=== PATIENT | female | born 1955 | race Caucasian/White ===

== ENCOUNTER → 2019-11-11 | Day surgery (SDC) | payer OTHER ==
[2019-11-11 10:13] VITALS: BP 112/65
[2019-11-11 10:13] LABS: HEMATOCRIT 28.5 % (36.0-47.0); HEMOGLOBIN 9.9 g/dL (12.0-15.5); MEAN CORPUSCULAR HEMOGLOBIN 30.7 pg (27.0-33.4); MEAN CORPUSCULAR HGB CONC 34.7 g/dL (32.0-36.0); MEAN CORPUSCULAR VOLUME 89 fl (80-97); PLATELET COUNT 115 10^3/uL (150-450); RED BLOOD COUNT 3.21 10^6/uL (3.72-5.28); RED CELL DISTRIBUTION WIDTH 13.7 % (11.5-14.0); WHITE BLOOD COUNT 3.8 10^3/uL (4.0-10.5)
[2019-11-11 10:22] LABS: INTERNATIONAL RATION (INR) 0.98; PROTHROMBIN TIME 13.2 SEC (11.4-15.4)
[2019-11-11 10:23] LABS: PARTIAL THROMBOPLASTIN TIME 30.1 SEC (23.5-35.8)
[2019-11-11 10:37] LABS: BLOOD UREA NITROGEN 31 mg/dL (7-20)
== END ==
LOC: RAD 08:45
PROVIDERS: ATTEND Physician Assistant Medical
DX: R18.8 Other ascites (principal); Z53.9 Procedure and treatment not carried out, unspecified reason
CPT/HCPCS: 36415; 82565; 84520; 85027; 85610; 85730

== ENCOUNTER 2019-11-15 07:59 | Day surgery (SDC) | payer OTHER ==
[2019-11-15 08:48] LABS: ABSOLUTE LYMPHOCYTES (AUTO) 1.1 10^3/uL (0.5-4.7); ABSOLUTE MONOCYTES (AUTO) 0.1 10^3/uL (0.1-1.4); ABSOLUTE NEUT (AUTO) 1.6 10^3/uL (1.7-8.2); BASOPHILS % (AUTO) 0.2 % (0-2); EOSINOPHILS % (AUTO) 0.4 % (0-6); HEMOGLOBIN 10.2 g/dL (12.0-15.5); MEAN CORPUSCULAR HEMOGLOBIN 30.6 pg (27.0-33.4); MEAN CORPUSCULAR HGB CONC 35.2 g/dL (32.0-36.0); MEAN CORPUSCULAR VOLUME 87 fl (80-97); MONOCYTES % (AUTO) 3.6 % (3-13); PLATELET COUNT 182 10^3/uL (150-450); RED BLOOD COUNT 3.34 10^6/uL (3.72-5.28); RED CELL DISTRIBUTION WIDTH 14.1 % (11.5-14.0); SEGMENTED NEUTROPHILS % (AUTO) 55.8 % (42-78); TOTAL CELLS COUNTED % (AUTO) 100 %; WHITE BLOOD COUNT 2.8 10^3/uL (4.0-10.5)
[2019-11-15 08:52] LABS: INTERNATIONAL RATION (INR) 1.03; PROTHROMBIN TIME 13.7 SEC (11.4-15.4)
[2019-11-15 08:53] LABS: PARTIAL THROMBOPLASTIN TIME 28.2 SEC (23.5-35.8)
[2019-11-15 09:11] LABS: BLOOD UREA NITROGEN 34 mg/dL (7-20)
[2019-11-15] MEDS ORDERED: MIDAZOLAM 2 MG/2 ML INJ ONE (09:24)
[2019-11-15] MEDS ORDERED: FENTANYL CITRATE INJ/PF 100 MCG/2 ML AMPUL ONE (09:24)
[2019-11-15] MEDS ORDERED: LIDOCAINE 1% INJ-PF (10 MG/ML) 30 ML SDV ONE (09:24)
[2019-11-15 12:14] VITALS: BP 117/76
== END 2019-11-15 11:45 | disposition home or self-care (01) ==
LOC: CCL 07:59
PROVIDERS: ATTEND Radiology Diagnostic Radiology
DX: C23 Malignant neoplasm of gallbladder (principal); R18.8 Other ascites
CPT/HCPCS: 36415; 84520; 82565; 85025; 85610; 85730; 76937; J2250; J3010; J3490

== ENCOUNTER 2019-11-16 18:14 | Inpatient (IN) | payer OTHER ==
[2019-11-16] MEDS ORDERED: NORMAL SALINE 1000 ML 1,000 ML IV PRN (18:35)
--- NOTE | 2019-11-16 18:59 | EKG REPORT ---
SEVERITY:- OTHERWISE NORMAL ECG - SINUS TACHYCARDIA LOW VOLTAGE IN FRONTAL LEADS : Confirmed by: Tara Carroll MD 16-Nov-2019 18:58:15
[2019-11-16 20:24] LABS: ABSOLUTE LYMPHOCYTES (AUTO) 0.4 10^3/uL (0.5-4.7); ABSOLUTE MONOCYTES (AUTO) 0.1 10^3/uL (0.1-1.4); ABSOLUTE NEUT (AUTO) 0.5 10^3/uL (1.7-8.2); BASOPHILS % (AUTO) 0.5 % (0-2); EOSINOPHILS % (AUTO) 0.1 % (0-6); HEMATOCRIT 25.4 % (36.0-47.0); HEMOGLOBIN 8.8 g/dL (12.0-15.5); LYMPHOCYTES % (AUTO) 41.4 % (13-45); MEAN CORPUSCULAR HEMOGLOBIN 30.7 pg (27.0-33.4); MEAN CORPUSCULAR HGB CONC 34.6 g/dL (32.0-36.0); MEAN CORPUSCULAR VOLUME 89 fl (80-97); MONOCYTES % (AUTO) 6.5 % (3-13); PLATELET COUNT 165 10^3/uL (150-450); RED BLOOD COUNT 2.87 10^6/uL (3.72-5.28); RED CELL DISTRIBUTION WIDTH 13.7 % (11.5-14.0); SEGMENTED NEUTROPHILS % (AUTO) 51.5 % (42-78); TOTAL CELLS COUNTED % (AUTO) 100 %
[2019-11-16 20:33] LABS: APPEARANCE,URINE CLOUDY; BILIRUBIN,URINE NEGATIVE (NEGATIVE); COLOR,URINE AMBER; GLUCOSE, URINE NEGATIVE (NEGATIVE); KETONES,URINE 20 mg/dL (NEGATIVE); LEUKOCYTE ESTERASE,URINE SMALL (NEGATIVE); NITRITE,URINE NEGATIVE (NEGATIVE); PROTEIN,URINE 30 mg/dL (NEGATIVE); URINE SPECIFIC GRAVITY 1.023; UROBILINOGEN,URINE NEGATIVE mg/dL (<2.0)
[2019-11-16 20:39] LABS: ALBUMIN 3.5 g/dL (3.5-5.0); ALKALINE PHOSPHATASE 81 U/L (38-126); ANION GAP 10 (5-19); ASPARTATE AMINO TRANSFERASE 38 U/L (14-36); BILIRUBIN,DIRECT 0.4 mg/dL (0.0-0.4); BILIRUBIN,TOTAL 0.7 mg/dL (0.2-1.3); BLOOD UREA NITROGEN 31 mg/dL (7-20); CALCIUM 8.1 mg/dL (8.4-10.2); CARBON DIOXIDE 23 mmol/L (22-30); CHLORIDE 104 mmol/L (98-107); CREATINE KINASE 56 U/L (30-135); GLUCOSE 121 mg/dL (75-110); TOTAL PROTEIN 6.2 g/dL (6.3-8.2)
[2019-11-16 21:23] LABS: PLATELET COMMENT ADEQUATE
[2019-11-16 21:24] LABS: BURR CELLS SLIGHT; OVALOCYTES SLIGHT
[2019-11-16 21:25] LABS: SCHISTOCYTES SLIGHT
[2019-11-16 21:27] LABS: WHITE BLOOD COUNT 0.9 10^3/uL (4.0-10.5)
--- NOTE | 2019-11-16 21:31 | ER Document Report ---
ED General - General Chief Complaint: Nausea/Vomiting Stated Complaint: POSSIBLE DEHYDRATION Time Seen by Provider: 11/16/19 21:08 Mode of Arrival: Wheelchair Information source: Patient, Relative Notes: Patient is a 63-year-old female comes emergency room being sent here by [facility] they were unable to achieve a 25 IV or tap into her port. Patient is a recent diagnosis of biliary cancer. She is currently seeing and oncology for this biliary cancer. Yesterday she was here at the hospital for an ultrasound and possible paracentesis but ultrasound does show any fluid to tap into. states she is been unable to keep fluids or food down for the past several days. She just finished her second round of chemotherapy this past Monday. She had her port placement on October 28. On arrival here patient's port was able to be accessed and she is receiving a liter fluid while we have her physical examination. states that on Monday this past week she kept out approximately 30 ounces of fluids. She slept all day yesterday only keeping down about 10 ounces of fluids and then started vomiting up some green bile. While at in will be placed her on a fentanyl patch. Patient is rating her pain currently of 4 out of 5. TRAVEL OUTSIDE OF THE [place] IN LAST 30 DAYS: No - HPI Onset: Last week Onset/Duration: Worse Quality of pain: Sharp, Throbbing Severity: Severe Pain Level: 4 - . Associated symptoms: Chills, Nausea, Vomiting, Weakness. denies: Diarrhea Exacerbated by: Food Relieved by: Denies Similar symptoms previously: Yes Recently seen / treated by doctor: Yes - Related Data Allergies/Adverse Reactions: Penicillins Adverse Reaction (Intermediate, Verified 04/10/14 14:43) Hives levofloxacin [From Levaquin] Adverse Reaction (Verified 11/15/19 08:14) Past Medical History - General Information source: Patient - Social History Smoking Status: Never Smoker Cigarette use (# per day): No Chew tobacco use (# tins/day): No Smoking Education Provided: No Frequency of alcohol use: None Drug Abuse: None Lives with: Family Family History: Reviewed & Not Pertinent - Past Medical History Cardiac Medical History: Reports: Hx Hypertension Denies: Hx Coronary Artery Disease, Hx Heart Attack Pulmonary Medical History: Reports: Hx Pneumonia Denies: Hx Asthma, Hx Bronchitis, Hx COPD Neurological Medical History: Reports: Hx Seizures - MED RELATED 30+ YRS AGO. Denies: Hx Cerebrovascular Accident Musculoskeletal Medical History: Reports Hx Arthritis Past Surgical History: Reports: Hx Hysterectomy - Immunizations Hx Diphtheria, Pertussis, Tetanus Vaccination: Yes Review of Systems - Review of Systems Constitutional: See HPI, Malaise, Weakness EENT: No symptoms reported Cardiovascular: No symptoms reported Respiratory: No symptoms reported Gastrointestinal: See HPI, Abdomen distended, Abdominal pain, Nausea, Vomiting. denies: Diarrhea Genitourinary: No symptoms reported Female Genitourinary: No symptoms reported Musculoskeletal: No symptoms reported Skin: No symptoms reported Hematologic/Lymphatic: No symptoms reported Neurological/Psychological: No symptoms reported -: Yes All other systems reviewed and negative Physical Exam - Vital signs Vitals: Temp Pulse Resp BP Pulse Ox 98.8 F 111 H 20 139/72 H 99 11/16/19 18:24 11/16/19 18:24 11/16/19 18:24 11/16/19 18:24 11/16/19 18:24 Interpretation: Hypertensive, Tachycardic - Notes Notes: PHYSICAL EXAMINATION: GENERAL: Patient is a well-nourished well-developed obese 63-year-old female no apparent distress but obvious pain and discomfort. HEAD: Atraumatic, normocephalic. EYES: Pupils equal round and reactive to light, extraocular movements intact, conjunctiva are normal. ENT: Examination patient's oral mucosa shows moderately dry mucosa throughout the entire oral cavity. NECK: Normal range of motion, supple without lymphadenopathy LUNGS: Breath sounds clear to auscultation bilaterally and equal. No wheezes rales or rhonchi. HEART: Tachycardic rate and rhythm without murmurs ABDOMEN: Examination patient's abdomen shows it to be moderately distended. There is no tympany noted on percussion. Diffuse tenderness is also noted on mild palpation. Bowel sounds are present but moderately reduced. No ascites is felt on percussion or wave. Female : deferred Musculoskeletal: Normal range of motion, no pitting or edema. No cyanosis. NEUROLOGICAL: Normal speech, normal gait. Normal sensory, motor exams PSYCH: Normal mood, normal affect. SKIN: Warm, Dry, normal turgor, no rashes or lesions noted. Course - Re-evaluation Re-evalutation: 11/17/19 01:46 Dr. Lau actually called me earlier in the evening check on the labs and the patient was doing. I will stool waiting on CT report which had been running behind and informed him of the labs and he felt that if patient's pain was under control she could probably go home is only she was keeping some fluids down. It took quite a while to get the CT report back we attempted 2 times to recontact him back but the phone service was not working. So around 1:30 AM this morning was contacted and I was able to discuss the case with her in length as well. The CT report came back showing that there is a possible bowel obstruction but the point of obstruction was not seen. She felt that patient could be placed in the hospital with the hospitalist and she would help follow. At this point just IV fluids to keep her hydrated and see if the questionable obstruction cleared itself. Patient is doing a little bit better since she has been here this length of time. I have talked to the hospitalist and he is going to accept the patient into his service. I will place a consult for Dr. Najera. - Vital Signs Vital signs: Temp Pulse Resp BP Pulse Ox 98.5 F 102 H 16 124/74 99 11/17/19 04:36 11/17/19 04:36 11/17/19 04:36 11/17/19 04:36 11/17/19 04:36 - Laboratory Result Diagrams: 11/17/19 06:36 11/17/19 06:36 Laboratory results interpreted by me: 11/16/19 11/16/19 11/16/19 20:04 20:05 20:05 WBC 0.9 L* D RBC 2.87 L Hgb 8.8 L Hct 25.4 L Absolute Neuts (auto) 0.5 L Absolute Lymphs (auto) 0.4 L Sodium 136.9 L BUN 31 H Creatinine 1.51 H Est GFR ( Amer) 42 L Est GFR (MDRD) Non-Af 35 L Glucose 121 H Calcium 8.1 L AST 38 H Ammonia Total Protein 6.2 L Urine Protein 30 H Urine Ketones 20 H Ur Leukocyte Esterase SMALL H 11/16/19 22:15 WBC RBC Hgb Hct Absolute Neuts (auto) Absolute Lymphs (auto) Sodium BUN Creatinine Est GFR ( Amer) Est GFR (MDRD) Non-Af Glucose Calcium AST Ammonia < 8.7 L Total Protein Urine Protein Urine Ketones Ur Leukocyte Esterase Discharge - Discharge Clinical Impression: Bowel obstruction Qualifiers: Intestinal obstruction type: unspecified Intestinal obstruction extent: unspecified extent Qualified Code(s): K56.609 - Unspecified intestinal obstruction, unspecified as to partial versus complete obstruction Condition: Stable Disposition: ADMITTED INPATIENT Admitting Provider: Jorge (Hospitalist) Unit Admitted: Telemetry
[2019-11-16] MEDS ORDERED: MORPHINE SULFATE 10 MG/ML INJ IV ONE (21:38)
[2019-11-16] MEDS ORDERED: RINGERS SOLUTION,LACTATED 1,000 ML IV ONE (21:39)
--- NOTE | 2019-11-16 23:41 | RADIOLOGY REPORT (SQ) ---
CLINICAL INDICATION: abd pain, history of biliary cancer. Nausea. Vomiting. Diffuse abdominal pain. TECHNIQUE: Noncontrast spiral axial CT imaging was obtained of the abdomen and pelvis with multiplanar reconstructions. This exam was performed according to our departmental dose-optimization program, which includes automated exposure control, adjustment of the mA and/or kV according to patient size and/or use of iterative reconstruction techniques. COMPARISON: None available. CORRELATION: None. FINDINGS: Abdomen: The lung bases demonstrate dependent atelectasis. Old granulomatous disease. The heart is of normal size. No evidence of pleural or pericardial fluid. The liver is homogeneous. The gallbladder is not identified. Presumed surgically absent. A plastic stent is seen spanning the common bile duct.. The pancreas is of grossly normal contour on this noncontrast examination. The spleen is unremarkable. The adrenals are unremarkable. The kidneys appear grossly normal without evidence of urolithiasis or hydronephrosis. There is no evidence of free air. Moderate free intraperitoneal fluid. This is simple appearing. No bulky adenopathy. Abdominal aorta is nonaneurysmal. Pelvis: The bowel is dilated proximally. It is fluid-filled. Distal small bowel and colon are of normal caliber. Fluid in the proximal colon.. The bowel is unopacified with oral contrast. Pelvic contents are unremarkable. The appendix is not convincingly seen. Visualized bones demonstrate age-appropriate osteoarthritis. IMPRESSION: Dilated proximal small bowel. Distal small bowel of normal caliber. These findings are suspicious for obstruction although the point of obstruction is not directly seen. Moderate amount of free fluid..
[2019-11-17] MEDS ORDERED: ACETAMINOPHEN 650 MG SUPP.RECT PR PRN (01:50)
[2019-11-17] MEDS ORDERED: ACETAMINOPHEN 325 MG TABLET PO PRN (01:50)
[2019-11-17] MEDS ORDERED: NORMAL SALINE 1000 ML 1,000 ML IV PRN (01:50)
[2019-11-17] MEDS ORDERED: TEMAZEPAM 7.5 MG CAPSULE PO PRN (01:50)
[2019-11-17] MEDS ORDERED: IPRATROPIUM/ALBUTEROL 0.5-2.5 MG/3 ML AMPUL NEB PRN (01:50)
[2019-11-17] MEDS ORDERED: CEFEPIME 1 GM/D5W RTU 1 GM/50 ML RTUPB IV ONE (02:30)
--- NOTE | 2019-11-17 03:26 | PDOC H&P ---
History of Present Illness Admission Date/PCP: 11/17/19 01:57 SUSHANT GIBBS DO History of Present Illness: GIOVANNY BARROSO is a 63 year old female past medical history of hypertension, hyper lipidemia, recently diagnosed biliary carcinoma currently on chemotherapy followed by Dr. Priest, patient had a Port-A-Cath placed on October 28, developed her second chemotherapy on 11/12/2019. Patient presenting to ED complaining of nausea, vomiting, and abdominal pain. Patient initially presented to [facility] and was sent to [facility] as they were not able to access her Port-A-Cath. Since last chemotherapy patient has been feeling weak, having nonbloody bilious vomiting associated with abdominal pain and not being able to keep any food down. Abdominal pain is generalized, worse with standing and worse with eating. Last bowel movement was 2 days ago however is passing flatus, denies any fever, chest pain, shortness of breath, recent sick contact, recent travel, or being exposed to anybody with COVID 19. In ED a CT abdomen and pelvis showed dilated proximal small bowel, distal small bowel of normal caliber, findings suspicious for obstruction however no point of obstruction observed directly. Past Medical History Cardiac Medical History: Reports: Hypertension Denies: Coronary Artery Disease, Myocardial Infarction Pulmonary Medical History: Reports: Pneumonia Denies: Asthma, Bronchitis, Chronic Obstructive Pulmonary Disease (COPD) Neurological Medical History: Reports: Seizures - MED RELATED 30+ YRS AGO Musculoskeltal Medical History: Reports: Arthritis Hematology: Denies: Anemia Past Surgical History Past Surgical History: Reports: Hysterectomy Social History Lives with: Family Smoking Status: Never Smoker Family History Family History: Reviewed & Not Pertinent Parental Family History Reviewed: Yes Children Family History Reviewed: Yes Sibling(s) Family History Reviewed.: Yes Medication/Allergy Home Medications: Docusate Sodium [Colace 100 mg Capsule] 200 mg PO DAILY 11/15/19 Dronabinol [Marinol] 2.5 mg PO DAILY 11/15/19 Lorazepam [Ativan 0.5 mg Tablet] 0.5 mg PO Q4 PRN 11/15/19 Oxycodone HCl [Oxycodone HCl ER] 10 mg PO BID 11/15/19 Allergies/Adverse Reactions: Penicillins Adverse Reaction (Intermediate, Verified 04/10/14 14:43) Hives levofloxacin [From Levaquin] Adverse Reaction (Verified 11/15/19 08:14) Physical Exam Vital Signs: Temp Pulse Resp BP Pulse Ox 98.8 F 111 H 25 H 160/90 H 94 11/16/19 18:24 11/16/19 18:24 11/16/19 20:00 11/16/19 19:01 11/16/19 20:00 Intake & Output 11/15/19 11/16/19 11/17/19 06:59 06:59 06:59 Intake Total 1999 Balance 1999 Weight 71.668 kg Results Laboratory Results: 11/16/19 20:05 11/16/19 20:05 11/16/19 11/16/19 11/16/19 20:04 20:05 20:05 WBC 0.9 L* D RBC 2.87 L Hgb 8.8 L Hct 25.4 L MCV 89 MCH 30.7 MCHC 34.6 RDW 13.7 Plt Count 165 Seg Neutrophils % 51.5 Sodium 136.9 L Potassium 4.0 Chloride 104 Carbon Dioxide 23 Anion Gap 10 BUN 31 H Creatinine 1.51 H Est GFR ( Amer) 42 L Glucose 121 H Calcium 8.1 L Total Bilirubin 0.7 AST 38 H Alkaline Phosphatase 81 Ammonia Total Protein 6.2 L Albumin 3.5 Urine Color SUDHA Urine Appearance CLOUDY Urine pH 5.0 Ur Specific [place] 1.023 Urine Protein 30 H Urine Glucose (UA) NEGATIVE Urine Ketones 20 H Urine Blood NEGATIVE Urine Nitrite NEGATIVE Ur Leukocyte Esterase SMALL H Urine WBC (Auto) 15 Urine RBC (Auto) 3 11/16/19 22:15 WBC RBC Hgb Hct MCV MCH MCHC RDW Plt Count Seg Neutrophils % Sodium Potassium Chloride Carbon Dioxide Anion Gap BUN Creatinine Est GFR ( Amer) Glucose Calcium Total Bilirubin AST Alkaline Phosphatase Ammonia < 8.7 L Total Protein Albumin Urine Color Urine Appearance Urine pH Ur Specific [place] Urine Protein Urine Glucose (UA) Urine Ketones Urine Blood Urine Nitrite Ur Leukocyte Esterase Urine WBC (Auto) Urine RBC (Auto) 11/16/19 20:05 Creatine Kinase 56 Impressions: Abdomen/Pelvis CT 11/16/19 21:37 IMPRESSION: Dilated proximal small bowel. Distal small bowel of normal caliber. These findings are suspicious for obstruction although the point of obstruction is not directly seen. Moderate amount of free fluid.. Assessment and Plan - Diagnosis (1) Nausea & vomiting Qualifiers: Vomiting type: bilious vomiting Qualified Code(s): R11.14 - Bilious vomiting Is this a current diagnosis for this admission?: Yes Plan: Likely chemotherapy induced due to recent chemotherapy for underlying biliary malignancy. CT abdomen pelvis positive for dilated proximal small bowel, suspicion for obstruction however no point of obstruction directly noticed on imaging. Patient passing flatus and has normal bowel sounds on auscultation. Monitor volume status, IV antiemetics, monitor electrolytes and replace as needed. (2) Neutropenia Qualifiers: Neutropenia type: secondary to cancer chemotherapy Qualified Code(s): D70.1 - Agranulocytosis secondary to cancer chemotherapy; T45.1X5A - Adverse effect of antineoplastic and immunosuppressive drugs, initial encounter Is this a current diagnosis for this admission?: Yes Plan: Chemotherapy-induced. Last chemotherapy 11/12/2019. WBC 0.9 down from 2.8 on 11/15/2019. ANC 500 down from 1600 on 11/15/2019. Afebrile, no sign of acute infection. Neutropenic precaution, empiric broad-spectrum IV antibiotics, blood culture. Otology oncology consulted. (3) Biliary tract cancer Is this a current diagnosis for this admission?: Yes Plan: Recently diagnosed. Currently undergoing chemotherapy. Followed by Dr. Priest oncologist. Oncology consulted. Outpatient oncology follow-up. (4) Hypertension Is this a current diagnosis for this admission?: Yes Plan: Resume home meds. PRN IV hydralazine and metoprolol. Adjust meds as needed. (5) Acute kidney injury superimposed on CKD Is this a current diagnosis for this admission?: Yes Plan: Prerenal, likely due to low p.o. intake and vomiting. Cautious volume resuscitation guided by volume status, monitor electrolytes and replace as needed. If no improvement consult nephrology. CT abdomen pelvis negative for any acute kidney or urinary system abnormalities. (6) Abdominal pain Qualifiers: Abdominal location: generalized Qualified Code(s): R10.84 - Generalized a bdominal pain Is this a current diagnosis for this admission?: Yes Plan: CT abdomen pelvis positive for dilated proximal small bowel, suspicion for obstruction however no point of obstruction directly noticed on imaging. Last bowel movement 2 days ago. Patient passing flatus. Normal bowel sounds on auscultation. No sign of acute abdomen. Monitor for signs of obstruction. Continue supportive measures. - Time Time Spent with patient: 25-34 minutes Medications reviewed and adjusted accordingly: Yes Anticipated Discharge Disposition: Home with Home Health Anticipated Discharge Timeframe: within 72 hours
[2019-11-17] MEDS ORDERED: HYDRALAZINE HCL INJ/PF 20 MG/1 ML SDV IV PRN (03:30)
[2019-11-17] MEDS ORDERED: METOPROLOL TARTRATE PF/INJ 5 MG/5 ML SDV IV PRN (03:30)
[2019-11-17] MEDS ORDERED: LORAZEPAM INJ 2 MG/1 ML VIAL IV PRN (03:31)
[2019-11-17] MEDS: DEXTROSE 5%-NORMAL SALINE 1,000 ML IV PRN ×2 (03:52→14:15)
[2019-11-17] MEDS: MORPHINE SULFATE 10 MG/ML INJ IV PRN ×4 (03:52→21:40)
[2019-11-17] MEDS: HEPARIN SOD (PORCINE) 5,000 UNIT/ML 1 ML VIAL SUBCUT SCH ×3 (05:06→21:41)
[2019-11-17 08:32] LABS: HEMATOCRIT 23.8 % (36.0-47.0); HEMOGLOBIN 8.6 g/dL (12.0-15.5); MEAN CORPUSCULAR HEMOGLOBIN 31.1 pg (27.0-33.4); MEAN CORPUSCULAR HGB CONC 36.2 g/dL (32.0-36.0); MEAN CORPUSCULAR VOLUME 86 fl (80-97); PLATELET COUNT 150 10^3/uL (150-450); RED BLOOD COUNT 2.77 10^6/uL (3.72-5.28); RED CELL DISTRIBUTION WIDTH 14.1 % (11.5-14.0)
[2019-11-17 08:33] LABS: WHITE BLOOD COUNT 2.2 10^3/uL (4.0-10.5)
[2019-11-17 08:37] LABS: ANION GAP 8 (5-19); BLOOD UREA NITROGEN 25 mg/dL (7-20); CALCIUM 7.9 mg/dL (8.4-10.2); CARBON DIOXIDE 23 mmol/L (22-30); CHLORIDE 104 mmol/L (98-107); GLUCOSE 122 mg/dL (75-110); POTASSIUM 3.2 mmol/L (3.6-5.0)
[2019-11-17] MEDS: PANTOPRAZOLE SODIUM 40 MG VIAL IV SCH ×2 (09:45→21:44)
[2019-11-17] MEDS: PROMETHAZINE HCL INJ 25 MG/1 ML VIAL IV PRN ×2 (09:46→16:30)
[2019-11-17] MEDS: POTASSI CL 20 MEQ/50 ML RIDER 20 MEQ/50 ML RTUPB IV SCH ×2 (09:47→11:36)
--- NOTE | 2019-11-17 18:43 | PDOC PROGRESS REPORT ---
Subjective Progress Note for:: 11/17/19 Subjective:: Patient was seen on morning rounds. She was found resting in bed, comfortably, on room air. She reports continued nausea and vomiting, though improved with anti-emetics. Mild, diffuse, abd discomfort. Otherwise, she denies fever, chills, chest pain, palpitations, dyspnea, orthopnea, and cough. She has no questions or concerns at this time. No concerns per nursing. Reason For Visit: NAUSEA,VOMITING,P.O INTOLERANCE,ABDOMINAL PAIN Physical Exam Vital Signs: Temp Pulse Resp BP Pulse Ox 98.2 F 104 H 16 119/74 96 11/17/19 17:10 11/17/19 17:10 11/17/19 17:10 11/17/19 17:10 11/17/19 17:10 Intake & Output 11/16/19 11/17/19 11/18/19 06:59 06:59 06:59 Intake Total 2050 1045 Output Total 120 Balance 1930 1045 Weight 74.2 kg General appearance: PRESENT: no acute distress, cooperative, well-developed, well-nourished Head exam: PRESENT: atraumatic, normocephalic Eye exam: PRESENT: conjunctiva pink, EOMI, PERRLA. ABSENT: scleral icterus Mouth exam: PRESENT: moist, tongue midline Respiratory exam: PRESENT: clear to auscultation shelly, symmetrical, unlabored. ABSENT: rales, rhonchi, wheezes Cardiovascular exam: PRESENT: RRR, +S1, +S2. ABSENT: diastolic murmur, rubs, systolic murmur Vascular exam: PRESENT: normal capillary refill GI/Abdominal exam: PRESENT: normal bowel sounds, soft, tenderness - generalized/vague. ABSENT: distended, guarding, mass, organolmegaly, rebound Rectal exam: PRESENT: deferred Extremities exam: PRESENT: full ROM. ABSENT: calf tenderness, clubbing, pedal edema Neurological exam: PRESENT: alert, awake, oriented to person, oriented to place, oriented to time, oriented to situation, CN II-XII grossly intact, other - fatigued. ABSENT: motor sensory deficit Psychiatric exam: PRESENT: appropriate affect, normal mood. ABSENT: homicidal ideation, suicidal ideation Skin exam: PRESENT: dry, intact, warm. ABSENT: cyanosis, rash Results Laboratory Results: 11/17/19 06:36 11/17/19 06:36 11/16/19 11/16/19 11/16/19 20:04 20:05 20:05 WBC 0.9 L* D RBC 2.87 L Hgb 8.8 L Hct 25.4 L MCV 89 MCH 30.7 MCHC 34.6 RDW 13.7 Plt Count 165 Seg Neutrophils % 51.5 Sodium 136.9 L Potassium 4.0 Chloride 104 Carbon Dioxide 23 Anion Gap 10 BUN 31 H Creatinine 1.51 H Est GFR ( Amer) 42 L Glucose 121 H Calcium 8.1 L Total Bilirubin 0.7 AST 38 H Alkaline Phosphatase 81 Ammonia Total Protein 6.2 L Albumin 3.5 Urine Color SUDHA Urine Appearance CLOUDY Urine pH 5.0 Ur Specific [place] 1.023 Urine Protein 30 H Urine Glucose (UA) NEGATIVE Urine Ketones 20 H Urine Blood NEGATIVE Urine Nitrite NEGATIVE Ur Leukocyte Esterase SMALL H Urine WBC (Auto) 15 Urine RBC (Auto) 3 11/16/19 11/17/19 11/17/19 22:15 06:36 06:36 WBC 2.2 L D RBC 2.77 L Hgb 8.6 L Hct 23.8 L MCV 86 MCH 31.1 MCHC 36.2 H RDW 14.1 H Plt Count 150 Seg Neutrophils % Sodium 135.0 L Potassium 3.2 L Chloride 104 Carbon Dioxide 23 Anion Gap 8 BUN 25 H Creatinine 1.21 Est GFR ( Amer) 54 L Glucose 122 H Calcium 7.9 L Total Bilirubin AST Alkaline Phosphatase Ammonia < 8.7 L Total Protein Albumin Urine Color Urine Appearance Urine pH Ur Specific [place] Urine Protein Urine Glucose (UA) Urine Ketones Urine Blood Urine Nitrite Ur Leukocyte Esterase Urine WBC (Auto) Urine RBC (Auto) 11/16/19 20:05 Creatine Kinase 56 Impressions: Abdomen/Pelvis CT 11/16/19 21:37 IMPRESSION: Dilated proximal small bowel. Distal small bowel of normal caliber. These findings are suspicious for obstruction although the point of obstruction is not directly seen. Moderate amount of free fluid.. Assessment and Plan - Diagnosis (1) Abdominal pain Qualifiers: Abdominal location: generalized Qualified Code(s): R10.84 - Generalized abdominal pain Is this a current diagnosis for this admission?: Yes Plan: CT abdomen pelvis positive for dilated proximal small bowel, suspicion for obstruction however no point of obstruction directly noticed on imaging. Last bowel movement 2 days ago. Patient passing flatus. Normal bowel sounds on auscultation. No sign of acute abdomen. Monitor for signs of obstruction. Continue supportive measures. (2) Acute kidney injury superimposed on CKD Is this a current diagnosis for this admission?: Yes Plan: Improved; Cr 1.51-> 1.21 Prerenal, likely due to low p.o. intake and vomiting. CT abdomen pelvis negative for any acute kidney or urinary system abnormalities. Cautious volume resuscitation guided by volume status, monitor electrolytes and replace as needed. If no improvement consult nephrology. (3) Biliary tract cancer Is this a current diagnosis for this admission?: Yes Plan: Recently diagnosed. Currently undergoing chemotherapy. Followed by Dr. Priest oncologist. Oncology consulted. Outpatient oncology follow-up. (4) Hypertension Is this a current diagnosis for this admission?: Yes Plan: Resume home meds. PRN IV hydralazine and metoprolol. Adjust meds as needed. (5) Nausea & vomiting Qualifiers: Vomiting type: bilious vomiting Qualified Code(s): R11.14 - Bilious vomiting Is this a current diagnosis for this admission?: Yes Plan: Likely chemotherapy induced due to recent chemotherapy for underlying biliary malignancy. CT abdomen pelvis positive for dilated proximal small bowel, suspicion for obstruction however no point of obstruction directly noticed on imaging. Patient passing flatus and has normal bowel sounds on auscultation. Monitor volume status, IV antiemetics, monitor electrolytes and replace as needed. Cautiously advance to clear liquids. (6) Neutropenia Qualifiers: Neutropenia type: secondary to cancer chemotherapy Qualified Code(s): D70.1 - Agranulocytosis secondary to cancer chemotherapy; T45.1X5A - Adverse effect of antineoplastic and immunosuppressive drugs, initial encounter Is this a current diagnosis for this admission?: Yes Plan: Chemotherapy-induced. Last chemotherapy 11/12/2019. WBC 0.9 down from 2.8 on 11/15/2019. ANC 500 down from 1600 on 11/15/2019. Afebrile, no sign of acute infection. Neutropenic precaution, empiric broad-spectrum IV antibiotics, blood culture. Otology oncology consulted. - Time Time Spent with patient: 15-24 minutes Medications reviewed and adjusted accordingly: Yes Anticipated Discharge Disposition: Home, Self Care Anticipated Discharge Timeframe: within 48 hours
[2019-11-17] MEDS: CEFEPIME 1 GM/D5W RTU 1 GM/50 ML RTUPB IV SCH (19:25)
[2019-11-17] MEDS: ONDANSETRON HCL INJ/PF 4 MG/2 ML SDV IV PRN (21:42)
[2019-11-17] MEDS: ATORVASTATIN CALCIUM 20 MG TABLET PO SCH (21:44)
[2019-11-18] MEDS: DEXTROSE 5%-NORMAL SALINE 1,000 ML IV PRN ×2 (01:21→11:30)
[2019-11-18] MEDS: CEFEPIME 1 GM/D5W RTU 1 GM/50 ML RTUPB IV SCH ×2 (06:17→21:19)
[2019-11-18] MEDS: HEPARIN SOD (PORCINE) 5,000 UNIT/ML 1 ML VIAL SUBCUT SCH ×3 (06:17→22:24)
[2019-11-18] MEDS: LEVOTHYROXINE SODIUM 0.075 MG TABLET PO SCH (06:17)
--- NOTE | 2019-11-18 07:59 | PDOC CONSULTATION ---
Consultation Consult Date: 11/18/19 Attending physician:: ROYCE GAMING Provider Consulted: SATURNINO DREW Consult reason:: Patient well-known to our oncology clinic with cholangiocarcinoma History of Present Illness Admission Date/PCP: 11/17/19 01:57 SUSHANT GIBBS DO Patient complains of: Nausea and vomiting, poor p.o. intake History of Present Illness: GIOVANNY BARROSO is a 63 year old female with recent diagnosis of stage IV cholangiocarcinoma, with malignant ascites, omental metastasis, biliary mass with stent placement, has been in and out of [facility] over the last month. Received cycle #1 of chemotherapy, and this was the week off of chemotherapy this week. Cycle #2 is to be given in about 1 week's time. Presents with severe nausea and vomiting, cannot really tolerate even ice chips without getting nauseous. Upon presentation CT here showed obstruction and this was seen on a previous CT at [facility] as well and she was treated with IV fluids and medical management and it did resolve. She actually had a bowel movement on Monday. Is passing gas currently. Pain is also been a major issue and she recently got started on fentanyl patch which I increased yesterday. Past Medical History Cardiac Medical History: Reports: Hypertension Denies: Coronary Artery Disease, Myocardial Infarction Pulmonary Medical History: Reports: Pneumonia Denies: Asthma, Bronchitis, Chronic Obstructive Pulmonary Disease (COPD) Neurological Medical History: Reports: Seizures - MED RELATED 30+ YRS AGO Malignancy Medical History: Reports: Other - Cholangiocarcinoma Musculoskeltal Medical History: Reports: Arthritis Psychiatric Medical History: Reports: Depression Hematology: Denies: Anemia Past Surgical History Past Surgical History: Reports: Hysterectomy Social History Lives with: Family Smoking Status: Never Smoker Number of Years Smokin Last Time Smoked: 1976 Frequency of Alcohol Use: None Hx Recreational Drug Use: No Drugs: None Hx Prescription Drug Abuse: No - Advance Directive Resuscitation Status: Full Code Family History Family History: Reviewed & Not Pertinent Parental Family History Reviewed: Yes Children Family History Reviewed: Yes Sibling(s) Family History Reviewed.: Yes Medication/Allergy Home Medications: Amitriptyline HCl [Elavil 75 Mg Tablet] 75 mg PO DAILY 11/17/19 Atorvastatin Calcium [Lipitor 20 mg Tablet] 20 mg PO QHS 11/17/19 Levothyroxine Sodium [Synthroid 0.075 mg Tablet] 0.075 mg PO DAILY 11/17/19 Lisinopril 20 mg PO DAILY 11/17/19 Metoprolol Succinate 100 mg PO DAILY 11/17/19 Sertraline HCl 100 mg PO DAILY 11/17/19 Allergies/Adverse Reactions: Penicillins Adverse Reaction (Intermediate, Verified 04/10/14 14:43) Hives levofloxacin [From Levaquin] Adverse Reaction (Verified 11/15/19 08:14) Review of Systems Constitutional: ABSENT: chills, fever(s), headache(s), weight gain, weight loss Eyes: ABSENT: visual disturbances Ears: ABSENT: hearing changes Cardiovascular: ABSENT: chest pain, dyspnea on exertion, edema, orthropnea, palpitations Respiratory: ABSENT: cough, hemoptysis Gastrointestinal: ABSENT: abdominal pain, constipation, diarrhea, hematemesis, hematochezia, nausea, vomiting Genitourinary: ABSENT: dysuria, hematuria Musculoskeletal: ABSENT: joint swelling Integumentary: ABSENT: rash, wounds Neurological: ABSENT: abnormal gait, abnormal speech, confusion, dizziness, focal weakness, syncope Psychiatric: ABSENT: anxiety, depression, homidical ideation, suicidal ideation Endocrine: ABSENT: cold intolerance, heat intolerance, polydipsia, polyuria Hematologic/Lymphatic: ABSENT: easy bleeding, easy bruising Physical Exam Vital Signs: Temp Pulse Resp BP Pulse Ox 98.9 F 105 H 17 118/73 94 11/18/19 00:07 11/18/19 00:07 11/18/19 00:07 11/18/19 00:07 11/18/19 00:07 Intake & Output 11/17/19 11/18/19 11/19/19 06:59 06:59 06:59 Intake Total 2050 2285 Output Total 120 150 Balance 1930 2135 Weight 74.2 kg 77.5 kg General appearance: PRESENT: no acute distress, well-developed, well-nourished Head exam: PRESENT: atraumatic, normocephalic Eye exam: PRESENT: conjunctiva pink, EOMI, PERRLA. ABSENT: scleral icterus Ear exam: PRESENT: normal external ear exam Mouth exam: PRESENT: moist, tongue midline Neck exam: ABSENT: carotid bruit, JVD, lymphadenopathy, thyromegaly Respiratory exam: PRESENT: clear to auscultation shelly. ABSENT: rales, rhonchi, wheezes Cardiovascular exam: PRESENT: RRR. ABSENT: diastolic murmur, rubs, systolic mur mur Pulses: PRESENT: normal dorsalis pedis pul Vascular exam: PRESENT: normal capillary refill GI/Abdominal exam: PRESENT: normal bowel sounds, soft. ABSENT: distended, guarding, mass, organolmegaly, rebound, tenderness Rectal exam: PRESENT: deferred Extremities exam: PRESENT: full ROM. ABSENT: calf tenderness, clubbing, pedal edema Neurological exam: PRESENT: alert, awake, oriented to person, oriented to place, oriented to time, oriented to situation, CN II-XII grossly intact. ABSENT: motor sensory deficit Psychiatric exam: PRESENT: appropriate affect, normal mood. ABSENT: homicidal ideation, suicidal ideation Skin exam: PRESENT: dry, intact, warm. ABSENT: cyanosis, rash Results Laboratory Results: 11/17/19 06:36 11/17/19 06:36 11/17/19 11/17/19 06:36 06:36 WBC 2.2 L D RBC 2.77 L Hgb 8.6 L Hct 23.8 L MCV 86 MCH 31.1 MCHC 36.2 H RDW 14.1 H Plt Count 150 Sodium 135.0 L Potassium 3.2 L Chloride 104 Carbon Dioxide 23 Anion Gap 8 BUN 25 H Creatinine 1.21 Est GFR ( Amer) 54 L Glucose 122 H Calcium 7.9 L 11/16/19 20:05 Creatine Kinase 56 Impressions: Abdomen/Pelvis CT 11/16/19 21:37 IMPRESSION: Dilated proximal small bowel. Distal small bowel of normal caliber. These findings are suspicious for obstruction although the point of obstruction is not directly seen. Moderate amount of free fluid.. Assessment & Plan - Diagnosis (1) Nausea & vomiting Qualifiers: Vomiting type: bilious vomiting Qualified Code(s): R11.14 - Bilious vomiting Is this a current diagnosis for this admission?: Yes Plan: Secondary to the cholangiocarcinoma as well as omental metastasis. Initially we thought last week that she was having resurgence of malignant ascites but when we went to place a Pleurx catheter in the abdomen so the ascites could be drained, there was no ascites to be drained. Continue with supportive care for now. (2) Abdominal pain Qualifiers: Abdominal location: generalized Qualified Code(s): R10.84 - Generalized abdominal pain Is this a current diagnosis for this admission?: Yes Plan: Related to the biliary cancer and malignant ascites as well as omental metastasis, fentanyl patch increased yesterday should be fully kicked in by today. May need to increase it further. (3) Biliary tract cancer Is this a current diagnosis for this admission?: Yes Plan: #1 of chemotherapy given, cycle #2 is to be given in 1 week but we may need to delay based upon how she is doing. (4) Neutropenia Qualifiers: Neutropenia type: secondary to cancer chemotherapy Qualified Code(s): D70.1 - Agranulocytosis secondary to cancer chemotherapy; T45.1X5A - Adverse effect of antineoplastic and immunosuppressive drugs, initial encounter Is this a current diagnosis for this admission?: Yes Plan: Chemotherapy-induced but improved on last CBC. Would do CBC and a CMP every other day. - Time Time Spent: Greater than 70 Minutes - Inpatient Certification Based on my medical assessment, after consideration of the patient's comorb idities, presenting symptoms, or acuity I expect that the services needed warrant INPATIENT care.: Yes I certify that my determination is in accordance with my understanding of Medicare's requirements for reasonable and necessary INPATIENT services [42 CFR 412.3e].: Yes Medical Necessity: Need For IV Fluids, Need for Pain Control, Risk of Complication if Not Cared For in Hospital
[2019-11-18 08:30] LABS: ABSOLUTE LYMPHOCYTES (AUTO) 0.7 10^3/uL (0.5-4.7); ABSOLUTE MONOCYTES (AUTO) 0.2 10^3/uL (0.1-1.4); ABSOLUTE NEUT (AUTO) 1.4 10^3/uL (1.7-8.2); EOSINOPHILS % (AUTO) 0.1 % (0-6); HEMATOCRIT 23.1 % (36.0-47.0); LYMPHOCYTES % (AUTO) 31.3 % (13-45); MEAN CORPUSCULAR HEMOGLOBIN 30.5 pg (27.0-33.4); MEAN CORPUSCULAR HGB CONC 34.6 g/dL (32.0-36.0); MEAN CORPUSCULAR VOLUME 88 fl (80-97); MONOCYTES % (AUTO) 9.1 % (3-13); RED BLOOD COUNT 2.62 10^6/uL (3.72-5.28); RED CELL DISTRIBUTION WIDTH 13.7 % (11.5-14.0); SEGMENTED NEUTROPHILS % (AUTO) 59.5 % (42-78); TOTAL CELLS COUNTED % (AUTO) 100 %; WHITE BLOOD COUNT 2.3 10^3/uL (4.0-10.5)
[2019-11-18 08:32] LABS: INTERNATIONAL RATION (INR) 1.14; PROTHROMBIN TIME 14.8 SEC (11.4-15.4)
[2019-11-18 08:55] LABS: ALBUMIN 2.9 g/dL (3.5-5.0); ALKALINE PHOSPHATASE 68 U/L (38-126); ANION GAP 9 (5-19); ASPARTATE AMINO TRANSFERASE 30 U/L (14-36); BILIRUBIN,DIRECT 0.3 mg/dL (0.0-0.4); BILIRUBIN,TOTAL 0.5 mg/dL (0.2-1.3); BLOOD UREA NITROGEN 21 mg/dL (7-20); CALCIUM 7.7 mg/dL (8.4-10.2); CARBON DIOXIDE 19 mmol/L (22-30); CHLORIDE 110 mmol/L (98-107); GLUCOSE 114 mg/dL (75-110); POTASSIUM 3.5 mmol/L (3.6-5.0); TOTAL PROTEIN 5.4 g/dL (6.3-8.2)
[2019-11-18 09:21] LABS: PLATELET COUNT 90 10^3/uL (150-450)
[2019-11-18] MEDS ORDERED: (PENDING PHARMACY ID) (Metoprolol Succinate [Metoprolol Succinate] 100 MG) PO SCH (10:00)
[2019-11-18] MEDS ORDERED: (PENDING PHARMACY ID) (Lisinopril [Lisinopril] 20 MG) PO SCH (10:00)
[2019-11-18] MEDS: METOPROLOL SUCCINATE 50 MG TAB.SR.24H PO SCH (10:09)
[2019-11-18] MEDS ORDERED: MORPHINE SULFATE 10 MG/ML INJ IV PRN (10:31)
[2019-11-18] MEDS ORDERED: MORPHINE SULFATE 10 MG/ML INJ ONE (10:43)
[2019-11-18] MEDS: LORAZEPAM INJ 2 MG/1 ML VIAL IV PRN (10:54)
[2019-11-18] MEDS: LISINOPRIL 10 MG TABLET PO SCH (11:41)
[2019-11-18] MEDS: PANTOPRAZOLE SODIUM 40 MG VIAL IV SCH ×2 (11:42→22:00)
[2019-11-18] MEDS: SERTRALINE HCL 50 MG TABLET PO SCH (11:42)
[2019-11-18 13:02] LABS: PATH REVIEW PATHOLOGIST REVIEWED
[2019-11-18] MEDS: AMITRIPTYLINE HCL 75 MG TABLET PO SCH (14:15)
--- NOTE | 2019-11-18 16:32 | PDOC PROGRESS REPORT ---
Subjective Progress Note for:: 11/18/19 Subjective:: Patient was seen on morning rounds with present. She was found resting in bed on room air. She reports continued nausea and vomiting, though improved with anti-emetics. Diffuse, abd discomfort, somewhat worse today. Patient requests adjustment to medications. Placed on Duragesic patch yesterday; discussed that there can be a mack between patch placement and relief of discomfort. Otherwise, she denies fever, chills, chest pain, palpitations, dyspnea, or thopnea, and cough. She has no questions or concerns at this time. No concerns per nursing. Reason For Visit: NAUSEA,VOMITING,P.O INTOLERANCE,ABDOMINAL PAIN Physical Exam Vital Signs: Temp Pulse Resp BP Pulse Ox 98.1 F 100 16 125/69 92 11/18/19 07:49 11/18/19 13:08 11/18/19 13:08 11/18/19 07:49 11/18/19 13:08 Intake & Output 11/17/19 11/18/19 11/19/19 06:59 06:59 06:59 Intake Total 2050 2435 Output Total 120 200 Balance 1930 2235 Weight 74.2 kg 77.5 kg General appearance: PRESENT: no acute distress, well-developed, well-nourished Head exam: PRESENT: atraumatic, normocephalic Eye exam: PRESENT: conjunctiva pink, EOMI, PERRLA. ABSENT: scleral icterus Mouth exam: PRESENT: moist, tongue midline Respiratory exam: PRESENT: clear to auscultation shelly, symmetrical, tachypnea, unlabored. ABSENT: rales, rhonchi, wheezes Cardiovascular exam: PRESENT: RRR. ABSENT: diastolic murmur, rubs, systolic murmur Pulses: PRESENT: normal dorsalis pedis pul Vascular exam: PRESENT: normal capillary refill GI/Abdominal exam: PRESENT: normal bowel sounds, soft, tenderness - generalized. ABSENT: distended, guarding, mass, organolmegaly, rebound Rectal exam: PRESENT: deferred Extremities exam: PRESENT: full ROM. ABSENT: calf tenderness, clubbing, pedal edema Neurological exam: PRESENT: alert, awake, oriented to person, oriented to place, oriented to time, oriented to situation, CN II-XII grossly intact. ABSENT: motor sensory deficit Psychiatric exam: PRESENT: anxious, appropriate affect, normal mood. ABSENT: homicidal ideation, suicidal ideation Skin exam: PRESENT: dry, intact, warm. ABSENT: cyanosis, rash Results Laboratory Results: 11/18/19 07:14 11/18/19 07:14 11/16/19 11/18/19 11/18/19 20:05 07:14 07:14 WBC 0.9 L* D 2.3 L RBC 2.62 L Hgb 8.0 L Hct 23.1 L MCV 88 MCH 30.5 MCHC 34.6 RDW 13.7 Plt Count 90 L Seg Neutrophils % 59.5 Sodium 137.9 Potassium 3.5 L Chloride 110 H Carbon Dioxide 19 L Anion Gap 9 BUN 21 H Creatinine 1.19 Est GFR ( Amer) 55 L Glucose 114 H Calcium 7.7 L Phosphorus 3.0 Magnesium 1.4 L Total Bilirubin 0.5 AST 30 Alkaline Phosphatase 68 Total Protein 5.4 L Albumin 2.9 L Lipase 106.1 Stool for White Cells 11/18/19 11:02 WBC RBC Hgb Hct MCV MCH MCHC RDW Plt Count Seg Neutrophils % Sodium Potassium Chloride Carbon Dioxide Anion Gap BUN Creatinine Est GFR ( Amer) Glucose Calcium Phosphorus Magnesium Total Bilirubin AST Alkaline Phosphatase Total Protein Albumin Lipase Stool for White Cells NO WBCs SEEN 11/16/19 20:05 Creatine Kinase 56 Impressions: Abdomen/Pelvis CT 11/16/19 21:37 IMPRESSION: Dilated proximal small bowel. Distal small bowel of normal caliber. These findings are suspicious for obstruction although the point of obstruction is not directly seen. Moderate amount of free fluid.. Assessment and Plan - Diagnosis (1) Abdominal pain Qualifiers: Abdominal location: generalized Qualified Code(s): R10.84 - Generalized abdominal pain Is this a current diagnosis for this admission?: Yes Plan: CT abdomen pelvis positive for dilated proximal small bowel, suspicion for obstruction however no point of obstruction directly noticed on imaging. Last bowel movement 2 days ago. Patient passing flatus. Normal bowel sounds on auscultation. No sign of acute abdomen. Monitor for signs of obstruction. Continue supportive measures. Duragesic patch per Dr. Priest. IV morphine for breakthrough pain. (2) Acute kidney injury superimposed on CKD Is this a current diagnosis for this admission?: Yes Plan: Improved; Cr 1.51-> 1.21-> 1.19 Prerenal, likely due to low p.o. intake and vomiting. CT abdomen pelvis negative for any acute kidney or urinary system abnormalities. Cautious volume resuscitation guided by volume status, monitor electrolytes and replace as needed. Avoid nephrotoxic medications. Follow-up chemistries. (3) Biliary tract cancer Is this a current diagnosis for this admission?: Yes Plan: Recently diagnosed. Currently undergoing chemotherapy. Followed by Dr. Priest oncologist. Oncology consulted. Outpatient oncology follow-up. (4) Hypertension Is this a current diagnosis for this admission?: Yes Plan: Resume home meds. PRN IV hydralazine and metoprolol. Adjust meds as needed. (5) Nausea & vomiting Qualifiers: Vomiting type: bilious vomiting Qualified Code(s): R11.14 - Bilious vomiting Is this a current diagnosis for this admission?: Yes Plan: Improved; nausea without emesis today. Minimal oral intake. Likely chemotherapy induced due to recent chemotherapy for underlying biliary malignancy. CT abdomen pelvis positive for dilated proximal small bowel, suspicion for obstruction however no point of obstruction directly noticed on imaging. Patient passing flatus and has normal bowel sounds on auscultation. Monitor volume status, IV antiemetics, monitor electrolytes and replace as needed. Cautiously advance to clear liquids. (6) Neutropenia Qualifiers: Neutropenia type: secondary to cancer chemotherapy Qualified Code(s): D70.1 - Agranulocytosis secondary to cancer chemotherapy; T45.1X5A - Adverse effect of antineoplastic and immunosuppressive drugs, initial encounter Is this a current diagnosis for this admission?: Yes Plan: Chemotherapy-induced. Last chemotherapy 11/12/2019. WBC 0.9 down from 2.8 on 11/15/2019. ANC 500 down from 1600 on 11/15/2019. Afebrile, no sign of acute infection. Neutropenic precaution, empiric broad-spectrum IV antibiotics, blood culture. Otology oncology consulted. - Time Time Spent with patient: 35 or more minutes Medications reviewed and adjusted accordingly: Yes Anticipated Discharge Disposition: Home, Self Care Anticipated Discharge Timeframe: within 72 hours
[2019-11-18] MEDS: MORPHINE SULFATE 10 MG/ML INJ IV PRN (16:49)
[2019-11-18] MEDS: ATORVASTATIN CALCIUM 20 MG TABLET PO SCH (22:26)
[2019-11-19] MEDS: DEXTROSE 5%-NORMAL SALINE 1,000 ML IV PRN ×3 (00:45→21:48)
[2019-11-19] MEDS: HEPARIN SOD (PORCINE) 5,000 UNIT/ML 1 ML VIAL SUBCUT SCH ×3 (05:24→21:50)
[2019-11-19] MEDS: CEFEPIME 1 GM/D5W RTU 1 GM/50 ML RTUPB IV SCH ×2 (05:32→17:07)
[2019-11-19] MEDS: LEVOTHYROXINE SODIUM 0.075 MG TABLET PO SCH (05:32)
--- NOTE | 2019-11-19 08:32 | PDOC PROGRESS REPORT ---
Subjective Progress Note for:: 11/19/19 Subjective:: Patient having some bowel movements, pain is better overall. She is tolerating some clear liquids so far. She is getting up to the restroom. feels like she is doing better today. Reason For Visit: NAUSEA,VOMITING,P.O INTOLERANCE,ABDOMINAL PAIN Physical Exam Vital Signs: Temp Pulse Resp BP Pulse Ox 98.4 F 95 17 127/73 H 96 11/19/19 00:00 11/19/19 00:00 11/19/19 00:00 11/19/19 00:00 11/19/19 00:00 Intake & Output 11/18/19 11/19/19 11/20/19 06:59 06:59 06:59 Intake Total 2435 2716 Output Total 200 200 Balance 2235 2516 Weight 77.5 kg 77.1 kg General appearance: PRESENT: no acute distress, well-developed, well-nourished Head exam: PRESENT: atraumatic, normocephalic Eye exam: PRESENT: conjunctiva pink, EOMI, PERRLA. ABSENT: scleral icterus Ear exam: PRESENT: normal external ear exam Mouth exam: PRESENT: moist, tongue midline Neck exam: ABSENT: carotid bruit, JVD, lymphadenopathy, thyromegaly Respiratory exam: PRESENT: clear to auscultation shelly. ABSENT: rales, rhonchi, wheezes Cardiovascular exam: PRESENT: RRR. ABSENT: diastolic murmur, rubs, systolic murmur Pulses: PRESENT: normal dorsalis pedis pul Vascular exam: PRESENT: normal capillary refill GI/Abdominal exam: PRESENT: normal bowel sounds, soft. ABSENT: distended, gua rding, mass, organolmegaly, rebound, tenderness Rectal exam: PRESENT: deferred Extremities exam: PRESENT: full ROM. ABSENT: calf tenderness, clubbing, pedal edema Neurological exam: PRESENT: alert, awake, oriented to person, oriented to place, oriented to time, oriented to situation, CN II-XII grossly intact. ABSENT: pierre r sensory deficit Psychiatric exam: PRESENT: appropriate affect, normal mood. ABSENT: homicidal ideation, suicidal ideation Skin exam: PRESENT: dry, intact, warm. ABSENT: cyanosis, rash Results Laboratory Results: 11/18/19 07:14 11/18/19 07:14 11/16/19 11/18/19 11/18/19 20:05 07:14 07:14 WBC 0.9 L* D 2.3 L RBC 2.62 L Hgb 8.0 L Hct 23.1 L MCV 88 MCH 30.5 MCHC 34.6 RDW 13.7 Plt Count 90 L Seg Neutrophils % 59.5 Sodium 137.9 Potassium 3.5 L Chloride 110 H Carbon Dioxide 19 L Anion Gap 9 BUN 21 H Creatinine 1.19 Est GFR ( Amer) 55 L Glucose 114 H Calcium 7.7 L Phosphorus 3.0 Magnesium 1.4 L Total Bilirubin 0.5 AST 30 Alkaline Phosphatase 68 Total Protein 5.4 L Albumin 2.9 L Lipase 106.1 Stool for White Cells 11/18/19 11:02 WBC RBC Hgb Hct MCV MCH MCHC RDW Plt Count Seg Neutrophils % Sodium Potassium Chloride Carbon Dioxide Anion Gap BUN Creatinine Est GFR ( Amer) Glucose Calcium Phosphorus Magnesium Total Bilirubin AST Alkaline Phosphatase Total Protein Albumin Lipase Stool for White Cells NO WBCs SEEN 11/16/19 20:05 Creatine Kinase 56 Impressions: Abdomen/Pelvis CT 11/16/19 21:37 IMPRESSION: Dilated proximal small bowel. Distal small bowel of normal caliber. These findings are suspicious for obstruction although the point of obstruction is not directly seen. Moderate amount of free fluid.. Assessment & Plan - Diagnosis (1) Nausea & vomiting Qualifiers: Vomiting type: bilious vomiting Qualified Code(s): R11.14 - Bilious vomiting Is this a current diagnosis for this admission?: Yes Plan: Improving, related to the cancer, continue with aggressive hydration, antiemetics and supportive care, I would like her to advance her diet today hopefully. If she is able to tolerate a reasonable amount of calories, she could ultimately discharged home. However over 24 hours if she is not able to tolerate good calories, we may need to consider something like TPN ultimately. (2) Abdominal pain Qualifiers: Abdominal location: generalized Qualified Code(s): R10.84 - Generalized abdominal pain Is this a current diagnosis for this admission?: Yes Plan: Secondary to the biliary cancer, seems to be improving. Continue with fentanyl patch and as needed medication, we will decide on increase tomorrow. (3) Biliary tract cancer Is this a current diagnosis for this admission?: Yes Plan: She is on her week off of chemo, hopeful reinitiation of chemotherapy upon discharge (4) Neutropenia Qualifiers: Neutropenia type: secondary to cancer chemotherapy Qualified Code(s): D70.1 - Agranulocytosis secondary to cancer chemotherapy; T45.1X5A - Adverse effect of antineoplastic and immunosuppressive drugs, initial encounter Is this a current diagnosis for this admission?: Yes Plan: Improved, continue to monitor - Time Time Spent with patient: 15-24 minutes
[2019-11-19] MEDS: LISINOPRIL 10 MG TABLET PO SCH (09:30)
[2019-11-19] MEDS: PANTOPRAZOLE SODIUM 40 MG VIAL IV SCH ×2 (09:30→21:49)
[2019-11-19] MEDS: SERTRALINE HCL 50 MG TABLET PO SCH (09:30)
[2019-11-19] MEDS: METOPROLOL SUCCINATE 50 MG TAB.SR.24H PO SCH (09:30)
[2019-11-19] MEDS: AMITRIPTYLINE HCL 75 MG TABLET PO SCH (09:55)
[2019-11-19] MEDS ORDERED: FENTANYL 25 MCG/HR PATCH.TD72 TD SCH (10:00)
[2019-11-19] MEDS: MORPHINE SULFATE 10 MG/ML INJ IV PRN (10:02)
[2019-11-19 14:34] LABS: ABSOLUTE LYMPHOCYTES (AUTO) 1.1 10^3/uL (0.5-4.7); ABSOLUTE MONOCYTES (AUTO) 0.5 10^3/uL (0.1-1.4); ABSOLUTE NEUT (AUTO) 1.9 10^3/uL (1.7-8.2); BASOPHILS % (AUTO) 0.2 % (0-2); EOSINOPHILS % (AUTO) 0.1 % (0-6); HEMATOCRIT 21.5 % (36.0-47.0); LYMPHOCYTES % (AUTO) 31.3 % (13-45); MEAN CORPUSCULAR HEMOGLOBIN 30.6 pg (27.0-33.4); MEAN CORPUSCULAR HGB CONC 35.6 g/dL (32.0-36.0); MEAN CORPUSCULAR VOLUME 86 fl (80-97); MONOCYTES % (AUTO) 13.4 % (3-13); TOTAL CELLS COUNTED % (AUTO) 100 %; WHITE BLOOD COUNT 3.5 10^3/uL (4.0-10.5)
[2019-11-19 14:56] LABS: ALBUMIN 2.7 g/dL (3.5-5.0); ALKALINE PHOSPHATASE 65 U/L (38-126); ANION GAP 7 (5-19); ASPARTATE AMINO TRANSFERASE 25 U/L (14-36); BILIRUBIN,DIRECT 0.3 mg/dL (0.0-0.4); BILIRUBIN,TOTAL 0.5 mg/dL (0.2-1.3); BLOOD UREA NITROGEN 13 mg/dL (7-20); CALCIUM 7.1 mg/dL (8.4-10.2); CARBON DIOXIDE 19 mmol/L (22-30); CHLORIDE 112 mmol/L (98-107); GLUCOSE 106 mg/dL (75-110); POTASSIUM 3.1 mmol/L (3.6-5.0); TOTAL PROTEIN 5.3 g/dL (6.3-8.2)
[2019-11-19 15:05] LABS: PLATELET COUNT 68 10^3/uL (150-450)
[2019-11-19 15:08] LABS: HEMOGLOBIN 7.6 g/dL (12.0-15.5)
--- NOTE | 2019-11-19 21:27 | PDOC PROGRESS REPORT ---
Subjective Progress Note for:: 11/19/19 Subjective:: Was seen and examined at bedside with present. He is resting comfortably denies any abdominal pain. Is able to eat some of the clear liquids today no episodes of vomiting. Appetite is still fair. No chest pain no shortness of breath Reason For Visit: NAUSEA,VOMITING,P.O INTOLERANCE,ABDOMINAL PAIN Physical Exam Vital Signs: Temp Pulse Resp BP Pulse Ox 98.1 F 80 16 130/69 H 97 11/19/19 20:23 11/19/19 20:23 11/19/19 20:23 11/19/19 20:23 11/19/19 20:23 Intake & Output 11/18/19 11/19/19 11/20/19 06:59 06:59 06:59 Intake Total 2435 2716 1390 Output Total 349 781 1458 Balance 2235 2516 390 Weight 77.5 kg 77.1 kg General appearance: PRESENT: no acute distress, cooperative Head exam: PRESENT: atraumatic, normocephalic Eye exam: PRESENT: EOMI, PERRLA Mouth exam: PRESENT: moist Neck exam: PRESENT: full ROM. ABSENT: JVD Respiratory exam: PRESENT: clear to auscultation shelly, unlabored. ABSENT: rales, wheezes Cardiovascular exam: PRESENT: RRR, +S1, +S2 Pulses: PRESENT: +2 pedal pulses bilateral Vascular exam: PRESENT: normal capillary refill GI/Abdominal exam: PRESENT: distended, normal bowel sounds, soft. ABSENT: guarding, tenderness Rectal exam: PRESENT: deferred Extremities exam: PRESENT: full ROM. ABSENT: tenderness Musculoskeletal exam: PRESENT: full ROM Neurological exam: PRESENT: alert, awake, oriented to person, oriented to place, oriented to time, oriented to situation Psychiatric exam: PRESENT: normal mood Results Laboratory Results: 11/19/19 14:15 11/19/19 14:15 11/19/19 11/19/19 14:15 14:15 WBC 3.5 L RBC 2.50 L Hgb 7.6 L Hct 21.5 L MCV 86 MCH 30.6 MCHC 35.6 RDW 14.0 Plt Count 68 L Seg Neutrophils % 55.0 Sodium 138.1 Potassium 3.1 L Chloride 112 H Carbon Dioxide 19 L Anion Gap 7 BUN 13 Creatinine 1.13 Est GFR ( Amer) 59 L Glucose 106 Calcium 7.1 L Total Bilirubin 0.5 AST 25 Alkaline Phosphatase 65 Total Protein 5.3 L Albumin 2.7 L 11/16/19 20:05 Creatine Kinase 56 Impressions: Abdomen/Pelvis CT 11/16/19 21:37 IMPRESSION: Dilated proximal small bowel. Distal small bowel of normal caliber. These findings are suspicious for obstruction although the point of obstruction is not directly seen. Moderate amount of free fluid.. Assessment and Plan - Diagnosis (1) Bowel obstruction Qualifiers: Intestinal obstruction type: unspecified Intestinal obstruction extent: unspecified extent Qualified Code(s): K56.609 - Unspecified intestinal obstruction, unspecified as to partial versus complete obstruction Is this a current diagnosis for this admission?: Yes Plan: - CT abdomen pelvis positive for dilated proximal small bowel, suspicion for obstruction however no point of obstruction directly noticed on imaging. - +ve bowel movement - opioid related vs 2/2 biliary ca - senna for bowel regimen since patient is on opioid - diet advanced to full liquid. - I have spoken to her about the possibility of TPN vs enteral feeding if her appetite is still not picking up by tomorrow (2) Abdominal pain Qualifiers: Abdominal location: generalized Qualified Code(s): R10.84 - Generalized abdominal pain Is this a current diagnosis for this admission?: Yes Plan: CT abdomen pelvis positive for dilated proximal small bowel, suspicion for obstruction however no point of obstruction directly noticed on imaging. - +ve bowel movement today - diet advanced to full liquid - Continue supportive measures. - senna for constipation - Duragesic patch per Dr. Priest. - IV morphine for breakthrough pain. (3) Acute kidney injury superimposed on CKD Is this a current diagnosis for this admission?: Yes Plan: Improved; Cr 1.51-> 1.21-> 1.19>1.13 -Prerenal, likely due to low p.o. intake and vomiting. -CT abdomen pelvis negative for any acute kidney or urinary system abnormalities. - on D5 half normal -Avoid nephrotoxic medications. -Follow-up chemistries. (4) Biliary tract cancer Is this a current diagnosis for this admission?: Yes Plan: Recently diagnosed. Currently undergoing chemotherapy. -Followed by Dr. Priest oncologist. - duragesic and morphine for pain - senna for bowel regimen - Oncology consulted. Outpatient oncology follow-up. (5) Neutropenia Qualifiers: Neutropenia type: secondary to cancer chemotherapy Qualified Code(s): D70.1 - Agranulocytosis secondary to cancer chemotherapy; T45.1X5A - Adverse effect of antineoplastic and immunosuppressive drugs, initial encounter Is this a current diagnosis for this admission?: Yes Plan: Chemotherapy-induced. Last chemotherapy 11/12/2019. -WBC 0.9 >3.5 -ANC 500>1.9 -Afebrile, no sign of acute infection. - Bcx negative x 2 days - will continue to monitor - oncology consulted. (6) Hypertension Is this a current diagnosis for this admission?: Yes Plan: Resume home meds. PRN IV hydralazine and metoprolol. Adjust meds as needed. - Time Time Spent with patient: 25-34 minutes Medications reviewed and adjusted accordingly: Yes Anticipated Discharge Disposition: Home, Self Care Anticipated Discharge Timeframe: to be determined
[2019-11-19] MEDS: ATORVASTATIN CALCIUM 20 MG TABLET PO SCH (21:51)
[2019-11-19] MEDS: SENNOSIDES/DOCUSATE 8.6-50 MG 1 EACH TABLET PO SCH (22:50)
[2019-11-20] MEDS ORDERED: ACETAMINOPHEN 325 MG TABLET PO PRN (05:00)
[2019-11-20] MEDS: HEPARIN SOD (PORCINE) 5,000 UNIT/ML 1 ML VIAL SUBCUT SCH ×3 (06:26→21:32)
[2019-11-20] MEDS: LEVOTHYROXINE SODIUM 0.075 MG TABLET PO SCH (06:31)
[2019-11-20 06:40] LABS: ABSOLUTE LYMPHOCYTES (AUTO) 0.9 10^3/uL (0.5-4.7); ABSOLUTE MONOCYTES (AUTO) 0.6 10^3/uL (0.1-1.4); ABSOLUTE NEUT (AUTO) 2.2 10^3/uL (1.7-8.2); EOSINOPHILS % (AUTO) 0.1 % (0-6); HEMATOCRIT 20.7 % (36.0-47.0); LYMPHOCYTES % (AUTO) 25.3 % (13-45); MEAN CORPUSCULAR HEMOGLOBIN 30.8 pg (27.0-33.4); MEAN CORPUSCULAR HGB CONC 35.8 g/dL (32.0-36.0); MEAN CORPUSCULAR VOLUME 86 fl (80-97); MONOCYTES % (AUTO) 15.3 % (3-13); RED CELL DISTRIBUTION WIDTH 13.9 % (11.5-14.0); SEGMENTED NEUTROPHILS % (AUTO) 59.3 % (42-78); TOTAL CELLS COUNTED % (AUTO) 100 %; WHITE BLOOD COUNT 3.7 10^3/uL (4.0-10.5)
[2019-11-20] MEDS: CEFEPIME 1 GM/D5W RTU 1 GM/50 ML RTUPB IV SCH ×2 (06:43→18:44)
[2019-11-20 06:52] LABS: ALBUMIN 2.5 g/dL (3.5-5.0); ALKALINE PHOSPHATASE 64 U/L (38-126); ANION GAP 6 (5-19); ASPARTATE AMINO TRANSFERASE 25 U/L (14-36); BILIRUBIN,DIRECT 0.3 mg/dL (0.0-0.4); BILIRUBIN,TOTAL 0.5 mg/dL (0.2-1.3); BLOOD UREA NITROGEN 12 mg/dL (7-20); CARBON DIOXIDE 17 mmol/L (22-30); CHLORIDE 115 mmol/L (98-107); GLUCOSE 109 mg/dL (75-110); TOTAL PROTEIN 4.8 g/dL (6.3-8.2)
[2019-11-20 07:04] LABS: CALCIUM 6.8 mg/dL (8.4-10.2); POTASSIUM 2.8 mmol/L (3.6-5.0)
[2019-11-20 07:33] LABS: PLATELET COUNT 65 10^3/uL (150-450)
[2019-11-20 07:35] LABS: HEMOGLOBIN 7.4 g/dL (12.0-15.5)
[2019-11-20] MEDS: ONDANSETRON HCL INJ/PF 4 MG/2 ML SDV IV PRN (08:04)
[2019-11-20] MEDS: DEXTROSE 5%-NORMAL SALINE 1,000 ML IV PRN ×2 (08:10→21:25)
[2019-11-20] MEDS ORDERED: DIPHENHYDRAMINE HCL 50 MG/ML VIAL IV PRN (08:21)
--- NOTE | 2019-11-20 08:23 | PDOC PROGRESS REPORT ---
Subjective Progress Note for:: 11/20/19 Subjective:: No acute events overnight, was tolerating some clear liquids yesterday, advance to full liquid for the evening meal, was able to tolerate some of that. Encouraged taking in some boost or Ensure. Still having pain so we will increase fentanyl patch today. Discussed that hemoglobin dropped to this low 7 range so we will plan for 1 unit of packed red blood cell. Reason For Visit: NAUSEA,VOMITING,P.O INTOLERANCE,ABDOMINAL PAIN Physical Exam Vital Signs: Temp Pulse Resp BP Pulse Ox 98.2 F 82 16 122/68 96 11/19/19 23:48 11/19/19 23:48 11/19/19 23:48 11/19/19 23:48 11/19/19 23:48 Intake & Output 11/19/19 11/20/19 11/21/19 06:59 06:59 06:59 Intake Total 2716 2440 1000 Output Total 200 1000 Balance 2516 1440 1000 Weight 77.1 kg 81 kg General appearance: PRESENT: no acute distress, well-developed, well-nourished Head exam: PRESENT: atraumatic, normocephalic Eye exam: PRESENT: conjunctiva pink, EOMI, PERRLA. ABSENT: scleral icterus Ear exam: PRESENT: normal external ear exam Mouth exam: PRESENT: moist, tongue midline Neck exam: ABSENT: carotid bruit, JVD, lymphadenopathy, thyromegaly Respiratory exam: PRESENT: clear to auscultation shelly. ABSENT: rales, rhonchi, wheezes Cardiovascular exam: PRESENT: RRR. ABSENT: diastolic murmur, rubs, systolic murmur Pulses: PRESENT: normal dorsalis pedis pul Vascular exam: PRESENT: normal capillary refill GI/Abdominal exam: PRESENT: normal bowel sounds, soft. ABSENT: distended, guarding, mass, organolmegaly, rebound, tenderness Rectal exam: PRESENT: deferred Extremities exam: PRESENT: full ROM. ABSENT: calf tenderness, clubbing, pedal edema Neurological exam: PRESENT: alert, awake, oriented to person, oriented to place, oriented to time, oriented to situation, CN II-XII grossly intact. ABSENT: motor sensory deficit Psychiatric exam: PRESENT: appropriate affect, normal mood. ABSENT: homicidal ideation, suicidal ideation Skin exam: PRESENT: dry, intact, warm. ABSENT: cyanosis, rash Results Laboratory Results: 11/20/19 05:56 11/20/19 05:56 11/19/19 11/19/19 11/20/19 14:15 14:15 05:56 WBC 3.5 L 3.7 L RBC 2.50 L 2.40 L Hgb 7.6 L 7.4 L Hct 21.5 L 20.7 L MCV 86 86 MCH 30.6 30.8 MCHC 35.6 35.8 RDW 14.0 13.9 Plt Count 68 L 65 L Seg Neutrophils % 55.0 59.3 Sodium 138.1 Potassium 3.1 L Chloride 112 H Carbon Dioxide 19 L Anion Gap 7 BUN 13 Creatinine 1.13 Est GFR ( Amer) 59 L Glucose 106 Calcium 7.1 L Total Bilirubin 0.5 AST 25 Alkaline Phosphatase 65 Total Protein 5.3 L Albumin 2.7 L 11/20/19 05:56 WBC RBC Hgb Hct MCV MCH MCHC RDW Plt Count Seg Neutrophils % Sodium 138.3 Potassium 2.8 L* Chloride 115 H Carbon Dioxide 17 L Anion Gap 6 BUN 12 Creatinine 1.00 Est GFR ( Amer) > 60 Glucose 109 Calcium 6.8 L* Total Bilirubin 0.5 AST 25 Alkaline Phosphatase 64 Total Protein 4.8 L Albumin 2.5 L 11/16/19 20:05 Creatine Kinase 56 Impressions: Abdomen/Pelvis CT 11/16/19 21:37 IMPRESSION: Dilated proximal small bowel. Distal small bowel of normal caliber. These findings are suspicious for obstruction although the point of obstruction is not directly seen. Moderate amount of free fluid.. Assessment & Plan - Diagnosis (1) Nausea & vomiting Qualifiers: Vomiting type: bilious vomiting Qualified Code(s): R11.14 - Bilious vomiting Is this a current diagnosis for this admission?: Yes Plan: Still present, related to the cancer, continue supportive care (2) Abdominal pain Qualifiers: Abdominal location: generalized Qualified Code(s): R10.84 - Generalized abdominal pain Is this a current diagnosis for this admission?: Yes Plan: Increase fentanyl patch (3) Biliary tract cancer Is this a current diagnosis for this admission?: Yes Plan: Cycle #1 of chemo given this is the week off.Hopeful continued therapy as an outpatient (4) Neutropenia Qualifiers: Neutropenia type: secondary to cancer chemotherapy Qualified Code(s): D70.1 - Agranulocytosis secondary to cancer chemotherapy; T45.1X5A - Adverse effect of antineoplastic and immunosuppressive drugs, initial encounter Is this a current diagnosis for this admission?: Yes Plan: Chemo induced, now resolved - Time Time Spent with patient: 35 or more minutes
[2019-11-20] MEDS: CALCIUM CARBONATE 600 MG TABLET PO SCH ×2 (09:25→17:12)
[2019-11-20] MEDS: LISINOPRIL 10 MG TABLET PO SCH (09:25)
[2019-11-20] MEDS: AMITRIPTYLINE HCL 75 MG TABLET PO SCH (09:25)
[2019-11-20] MEDS: METOPROLOL SUCCINATE 50 MG TAB.SR.24H PO SCH (09:26)
[2019-11-20] MEDS: PANTOPRAZOLE SODIUM 40 MG VIAL IV SCH ×2 (09:27→21:10)
[2019-11-20] MEDS: SERTRALINE HCL 50 MG TABLET PO SCH (09:27)
[2019-11-20] MEDS: POTASSI CL 20 MEQ/50 ML RIDER 20 MEQ/50 ML RTUPB IV SCH ×3 (09:28→17:18)
[2019-11-20] MEDS ORDERED: POTASSIUM CHLORIDE 10 MEQ TABLET.ER PO ONE (09:30)
[2019-11-20] MEDS: FENTANYL 50 MCG/HR PATCH.TD72 TD SCH (09:56)
[2019-11-20] MEDS: MORPHINE SULFATE 10 MG/ML INJ IV PRN ×3 (10:45→21:09)
[2019-11-20] MEDS: MAGNESIUM SULFATE/D5W 1 GM/100 ML RTUPB IV SCH ×2 (10:56→16:58)
[2019-11-20] MEDS: PROMETHAZINE HCL INJ 25 MG/1 ML VIAL IV PRN ×3 (10:57→21:09)
[2019-11-20 17:23] LABS: ABSOLUTE LYMPHOCYTES (AUTO) 1.3 10^3/uL (0.5-4.7); ABSOLUTE MONOCYTES (AUTO) 1.1 10^3/uL (0.1-1.4); ABSOLUTE NEUT (AUTO) 3.4 10^3/uL (1.7-8.2); BASOPHILS % (AUTO) 0.1 % (0-2); EOSINOPHILS % (AUTO) 0.2 % (0-6); HEMATOCRIT 29.3 % (36.0-47.0); LYMPHOCYTES % (AUTO) 22.4 % (13-45); MEAN CORPUSCULAR HEMOGLOBIN 29.9 pg (27.0-33.4); MEAN CORPUSCULAR HGB CONC 35.5 g/dL (32.0-36.0); MEAN CORPUSCULAR VOLUME 84 fl (80-97); MONOCYTES % (AUTO) 19.5 % (3-13); RED BLOOD COUNT 3.48 10^6/uL (3.72-5.28); RED CELL DISTRIBUTION WIDTH 14.6 % (11.5-14.0); SEGMENTED NEUTROPHILS % (AUTO) 57.8 % (42-78); TOTAL CELLS COUNTED % (AUTO) 100 %; WHITE BLOOD COUNT 5.8 10^3/uL (4.0-10.5)
[2019-11-20] MEDS ORDERED: MAGNESIUM SULFATE/D5W 1 GM/100 ML RTUPB IV ONE (17:30)
[2019-11-20 17:36] LABS: HEMOGLOBIN 10.4 g/dL (12.0-15.5); PLATELET COUNT 77 10^3/uL (150-450)
[2019-11-20] MEDS ORDERED: POTASSIUM CHLORIDE 20 MEQ/50 ML RTU IV ONE (18:00)
[2019-11-20] MEDS: ATORVASTATIN CALCIUM 20 MG TABLET PO SCH (21:11)
[2019-11-20] MEDS: SENNOSIDES/DOCUSATE 8.6-50 MG 1 EACH TABLET PO SCH (21:32)
[2019-11-20] MEDS ORDERED: PHARMACY COMMUNICATION ORDER MC NR (22:15)
--- NOTE | 2019-11-20 22:16 | PDOC PROGRESS REPORT ---
Subjective Progress Note for:: 11/20/19 Subjective:: Was seen and examined at bedside She is resting comfortably chronic abdominal pain controlled by current pain medications. Appetite is still fair but reports no nausea or vomiting. Had a bowel movement today. I discussed with her the need for nutrition either in the form of TPN or enteral feeding. Generally enteral feeding is always preferred over TPN explained this to her and she was agreeable for a tube feeding insertion and enteral feeding. However nurse informed me that they would like to speak to their oncologist regarding TPN. Reason For Visit: NAUSEA,VOMITING,P.O INTOLERANCE,ABDOMINAL PAIN Physical Exam Vital Signs: Temp Pulse Resp BP Pulse Ox 97.9 F 82 16 136/72 H 98 11/20/19 15:08 11/20/19 15:08 11/20/19 15:08 11/20/19 15:08 11/20/19 15:08 Intake & Output 11/19/19 11/20/19 11/21/19 06:59 06:59 06:59 Intake Total 2716 2440 3088 Output Total 200 1000 200 Balance 2516 1440 2888 Weight 77.1 kg 81 kg 81 kg General appearance: PRESENT: no acute distress, cooperative Head exam: PRESENT: atraumatic, normocephalic Eye exam: PRESENT: EOMI, PERRLA Ear exam: PRESENT: normal external ear exam Mouth exam: PRESENT: moist Neck exam: PRESENT: full ROM. ABSENT: JVD Respiratory exam: PRESENT: clear to auscultation shelly, unlabored. ABSENT: crackles, rales Cardiovascular exam: PRESENT: RRR, +S1, +S2. ABSENT: diastolic murmur, systolic murmur Pulses: PRESENT: +2 pedal pulses bilateral GI/Abdominal exam: PRESENT: distended, normal bowel sounds, soft. ABSENT: gu arding, tenderness Extremities exam: PRESENT: full ROM Musculoskeletal exam: PRESENT: full ROM Neurological exam: PRESENT: alert, awake, oriented to person, oriented to place, oriented to time, oriented to situation Psychiatric exam: PRESENT: normal mood Skin exam: PRESENT: normal color Results Laboratory Results: 11/20/19 17:05 11/20/19 05:56 11/20/19 11/20/19 11/20/19 05:56 05:56 05:56 WBC 3.7 L RBC 2.40 L Hgb 7.4 L Hct 20.7 L MCV 86 MCH 30.8 MCHC 35.8 RDW 13.9 Plt Count 65 L Seg Neutrophils % 59.3 Sodium 138.3 Potassium 2.8 L* Chloride 115 H Carbon Dioxide 17 L Anion Gap 6 BUN 12 Creatinine 1.00 Est GFR ( Amer) > 60 Glucose 109 Calcium 6.8 L* Magnesium 1.0 L* Total Bilirubin 0.5 AST 25 Alkaline Phosphatase 64 Total Protein 4.8 L Albumin 2.5 L Blood Type Antibody Screen 11/20/19 11/20/19 09:05 17:05 WBC 5.8 RBC 3.48 L Hgb 10.4 L D Hct 29.3 L MCV 84 MCH 29.9 MCHC 35.5 RDW 14.6 H Plt Count 77 L Seg Neutrophils % 57.8 Sodium Potassium Chloride Carbon Dioxide Anion Gap BUN Creatinine Est GFR ( Amer) Glucose Calcium Magnesium Total Bilirubin AST Alkaline Phosphatase Total Protein Albumin Blood Type O POSITIVE Antibody Screen NEGATIVE 11/16/19 20:05 Creatine Kinase 56 Impressions: Abdomen/Pelvis CT 11/16/19 21:37 IMPRESSION: Dilated proximal small bowel. Distal small bowel of normal caliber. These findings are suspicious for obstruction although the point of obstruction is not directly seen. Moderate amount of free fluid.. Assessment and Plan - Diagnosis (1) Bowel obstruction Qualifiers: Intestinal obstruction type: unspecified Intestinal obstruction extent: unspecified extent Qualified Code(s): K56.609 - Unspecified intestinal obstruction, unspecified as to partial versus complete obstruction Is this a current diagnosis for this admission?: Yes Plan: - CT abdomen pelvis positive for dilated proximal small bowel, suspicion for obstruction however no point of obstruction directly noticed on imaging. -Patient is having regular bowel movement - opioid related vs 2/2 biliary ca - senna for bowel regimen since patient is on opioid - diet advanced to full liquid. - I have spoken to her about the possibility of TPN vs enteral feeding. She agreed to tube feeding. -NG tube placement ordered. dietary consult for enteral feeding recommendation (2) Abdominal pain Qualifiers: Abdominal location: generalized Qualified Code(s): R10.84 - Generalized abdominal pain Is this a current diagnosis for this admission?: Yes Plan: CT abdomen pelvis positive for dilated proximal small bowel, suspicion for obstruction however no point of obstruction directly noticed on imaging. - +ve bowel movement today - diet advanced to full liquid - Continue supportive measures. - senna for constipation - Duragesic patch per Dr. Priest. - IV morphine for breakthrough pain. (3) Acute kidney injury superimposed on CKD Is this a current diagnosis for this admission?: Yes Plan: Improved; Cr 1.51-> 1.21-> 1.19>1.13 -Prerenal, likely due to low p.o. intake and vomiting. -CT abdomen pelvis negative for any acute kidney or urinary system abnormalities. - on D5 half normal -Avoid nephrotoxic medications. -Follow-up chemistries. (4) Biliary tract cancer Is this a current diagnosis for this admission?: Yes Plan: Recently diagnosed. Currently undergoing chemotherapy. -Followed by Dr. Priest oncologist. - duragesic and morphine for pain - senna for bowel regimen - Oncology consulted. Outpatient oncology follow-up. (5) Neutropenia Qualifiers: Neutropenia type: secondary to cancer chemotherapy Qualified Code(s): D70.1 - Agranulocytosis secondary to cancer chemotherapy; T45.1X5A - Adverse effect of antineoplastic and immunosuppressive drugs, initial encounter Is this a current diagnosis for this admission?: Yes (6) Hypertension Is this a current diagnosis for this admission?: Yes (7) Anemia Qualifiers: Anemia type: other cause Other causes of anemia: antineoplastic chemothera py Qualified Code(s): D64.81 - Anemia due to antineoplastic chemotherapy; T45.1X5A - Adverse effect of antineoplastic and immunosuppressive drugs, initial encounter Is this a current diagnosis for this admission?: Yes Plan: -Globin continues to downtrend. From 8.8 now at 7.4 -No acute bleeding. This is likely secondary to chemotherapy -Oncology following ordered 1 unit of packed RBC -Repeat hemoglobin 10.4 -We will continue to monitor (8) Malnutrition Qualifiers: Malnutrition type: protein-calorie malnutrition Protein-calorie malnutrition severity: moderate Qualified Code(s): E44.0 - Moderate protein- calorie malnutrition Is this a current diagnosis for this admission?: Yes Plan: -Patient has a history of biliary tract cancer recently received chemo -Patient has poor appetite -Start enteral feeding tomorrow -Dietary on consult - Time Time Spent with patient: 25-34 minutes Anticipated Discharge Disposition: Home with Home Health Anticipated Discharge Timeframe: to be determined
[2019-11-21] MEDS ORDERED: TEMAZEPAM 7.5 MG CAPSULE NG PRN (01:00)
[2019-11-21] MEDS ORDERED: ACETAMINOPHEN 325 MG TABLET NG PRN (01:00)
[2019-11-21] MEDS: HEPARIN SOD (PORCINE) 5,000 UNIT/ML 1 ML VIAL SUBCUT SCH ×3 (05:33→21:25)
[2019-11-21] MEDS: CEFEPIME 1 GM/D5W RTU 1 GM/50 ML RTUPB IV SCH ×2 (05:40→17:45)
[2019-11-21] MEDS: LORAZEPAM INJ 2 MG/1 ML VIAL IV PRN (06:13)
[2019-11-21] MEDS: DEXTROSE 5%-NORMAL SALINE 1,000 ML IV PRN ×2 (06:23→17:45)
[2019-11-21 06:41] LABS: ABSOLUTE LYMPHOCYTES (AUTO) 1.1 10^3/uL (0.5-4.7); ABSOLUTE MONOCYTES (AUTO) 0.8 10^3/uL (0.1-1.4); ABSOLUTE NEUT (AUTO) 2.1 10^3/uL (1.7-8.2); BASOPHILS % (AUTO) 0.1 % (0-2); EOSINOPHILS % (AUTO) 0.1 % (0-6); HEMATOCRIT 27.3 % (36.0-47.0); HEMOGLOBIN 9.6 g/dL (12.0-15.5); LYMPHOCYTES % (AUTO) 27.9 % (13-45); MEAN CORPUSCULAR HEMOGLOBIN 29.8 pg (27.0-33.4); MEAN CORPUSCULAR HGB CONC 35.3 g/dL (32.0-36.0); MEAN CORPUSCULAR VOLUME 84 fl (80-97); MONOCYTES % (AUTO) 19.6 % (3-13); RED BLOOD COUNT 3.24 10^6/uL (3.72-5.28); RED CELL DISTRIBUTION WIDTH 14.8 % (11.5-14.0); SEGMENTED NEUTROPHILS % (AUTO) 52.3 % (42-78); TOTAL CELLS COUNTED % (AUTO) 100 %
[2019-11-21 06:56] LABS: ALBUMIN 2.7 g/dL (3.5-5.0); ALKALINE PHOSPHATASE 79 U/L (38-126); ANION GAP 9 (5-19); ASPARTATE AMINO TRANSFERASE 27 U/L (14-36); BILIRUBIN,DIRECT 0.3 mg/dL (0.0-0.4); BILIRUBIN,TOTAL 0.8 mg/dL (0.2-1.3); BLOOD UREA NITROGEN 11 mg/dL (7-20); CARBON DIOXIDE 18 mmol/L (22-30); CHLORIDE 112 mmol/L (98-107); GLUCOSE 103 mg/dL (75-110); POTASSIUM 3.6 mmol/L (3.6-5.0); TOTAL PROTEIN 5.2 g/dL (6.3-8.2)
[2019-11-21 07:12] LABS: CALCIUM 6.9 mg/dL (8.4-10.2)
[2019-11-21 07:57] LABS: PLATELET COUNT 76 10^3/uL (150-450)
--- NOTE | 2019-11-21 08:18 | PDOC PROGRESS REPORT ---
Subjective Progress Note for:: 11/21/19 Subjective:: NG tube placed last night, awaiting x-ray to look on tube placement. Thereafter awaiting dietary recommendations on initiation of tube feeds. Reason For Visit: NAUSEA,VOMITING,P.O INTOLERANCE,ABDOMINAL PAIN Physical Exam Vital Signs: Temp Pulse Resp BP Pulse Ox 98.1 F 83 15 127/67 H 93 11/21/19 00:00 11/21/19 00:00 11/21/19 00:00 11/21/19 00:00 11/21/19 00:00 Intake & Output 11/20/19 11/21/19 11/22/19 06:59 06:59 06:59 Intake Total 2440 4035 Output Total 1000 200 Balance 1440 3835 Weight 81 kg 80.6 kg General appearance: PRESENT: no acute distress, well-developed, well-nourished Head exam: PRESENT: atraumatic, normocephalic Eye exam: PRESENT: conjunctiva pink, EOMI, PERRLA. ABSENT: scleral icterus Ear exam: PRESENT: normal external ear exam Mouth exam: PRESENT: moist, tongue midline Neck exam: ABSENT: carotid bruit, JVD, lymphadenopathy, thyromegaly Respiratory exam: PRESENT: clear to auscultation shelly. ABSENT: rales, rhonchi, wheezes Cardiovascular exam: PRESENT: RRR. ABSENT: diastolic murmur, rubs, systolic murmur Pulses: PRESENT: normal dorsalis pedis pul Vascular exam: PRESENT: normal capillary refill GI/Abdominal exam: PRESENT: normal bowel sounds, soft. ABSENT: distended, guarding, mass, organolmegaly, rebound, tenderness Rectal exam: PRESENT: deferred Extremities exam: PRESENT: full ROM. ABSENT: calf tenderness, clubbing, pedal edema Neurological exam: PRESENT: alert, awake, oriented to person, oriented to place, oriented to time, oriented to situation, CN II-XII grossly intact. ABSENT: motor sensory deficit Psychiatric exam: PRESENT: appropriate affect, normal mood. ABSENT: homicidal ideation, suicidal ideation Skin exam: PRESENT: dry, intact, warm. ABSENT: cyanosis, rash Results Laboratory Results: 11/21/19 05:58 11/21/19 05:58 11/20/19 11/20/19 11/20/19 05:56 09:05 17:05 WBC 5.8 RBC 3.48 L Hgb 10.4 L D Hct 29.3 L MCV 84 MCH 29.9 MCHC 35.5 RDW 14.6 H Plt Count 77 L Seg Neutrophils % 57.8 Sodium Potassium Chloride Carbon Dioxide Anion Gap BUN Creatinine Est GFR ( Amer) Glucose Calcium Magnesium 1.0 L* Total Bilirubin AST Alkaline Phosphatase Total Protein Albumin Blood Type O POSITIVE Antibody Screen NEGATIVE 11/21/19 11/21/19 05:58 05:58 WBC 4.0 RBC 3.24 L Hgb 9.6 L Hct 27.3 L MCV 84 MCH 29.8 MCHC 35.3 RDW 14.8 H Plt Count 76 L Seg Neutrophils % 52.3 Sodium 139.3 Potassium 3.6 Chloride 112 H Carbon Dioxide 18 L Anion Gap 9 BUN 11 Creatinine 1.02 Est GFR ( Amer) > 60 Glucose 103 Calcium 6.9 L* Magnesium Total Bilirubin 0.8 AST 27 Alkaline Phosphatase 79 Total Protein 5.2 L Albumin 2.7 L Blood Type Antibody Screen 11/16/19 20:05 Creatine Kinase 56 Impressions: Abdomen/Pelvis CT 11/16/19 21:37 IMPRESSION: Dilated proximal small bowel. Distal small bowel of normal caliber. These findings are suspicious for obstruction although the point of obstruction is not directly seen. Moderate amount of free fluid.. Assessment & Plan - Diagnosis (1) Nausea & vomiting Qualifiers: Vomiting type: bilious vomiting Qualified Code(s): R11.14 - Bilious vomiting Is this a current diagnosis for this admission?: Yes Plan: poor p.o. intake yesterday so agree with tube feeds initiation, to see if it will work (2) Abdominal pain Qualifiers: Abdominal location: generalized Qualified Code(s): R10.84 - Generalized abdominal pain Is this a current diagnosis for this admission?: Yes Plan: Increased fentanyl, hopefully that will work (3) Biliary tract cancer Is this a current diagnosis for this admission?: Yes Plan: Currently on week off of chemotherapy but if patient is still here next week we may consider initiation of cycle #2 inpatient (4) Neutropenia Qualifiers: Neutropenia type: secondary to cancer chemotherapy Qualified Code(s): D70.1 - Agranulocytosis secondary to cancer chemotherapy; T45.1X5A - Adverse effect of antineoplastic and immunosuppressive drugs, initial encounter Is this a current diagnosis for this admission?: Yes Plan: Resolved continue to monitor (5) Malnutrition Qualifiers: Malnutrition type: protein-calorie malnutrition Protein-calorie malnutrition severity: severe Qualified Code(s): E43 - Unspecified severe protein-calorie malnutrition Is this a current diagnosis for this admission?: Yes Plan: Secondary to cancer and chemotherapy, initiating tube feeds - Time Time Spent with patient: 35 or more minutes
[2019-11-21] MEDS: PROMETHAZINE HCL INJ 25 MG/1 ML VIAL IV PRN ×3 (09:12→20:20)
--- NOTE | 2019-11-21 09:58 | RADIOLOGY REPORT (SQ) ---
EXAM DESCRIPTION: KUB/ABDOMEN (SINGLE VIEW) IMAGES COMPLETED DATE/TIME: 11/21/2019 9:13 am REASON FOR STUDY: Check Placement of NG Tube COMPARISON: None. NUMBER OF VIEWS: One view. TECHNIQUE: Supine radiographic image of the abdomen acquired. LIMITATIONS: None. FINDINGS: Nasogastric tube tip overlying the gastric fundus. No dilated loops. IMPRESSION: Nasogastric tube in the stomach. TECHNICAL DOCUMENTATION: JOB ID: [id number] 2010 [employer]- All Rights Reserved Reading location - IP/workstation name: [email or web address]
[2019-11-21] MEDS: AMITRIPTYLINE HCL 75 MG TABLET NG SCH (11:22)
[2019-11-21] MEDS: SERTRALINE HCL 50 MG TABLET NG SCH (11:22)
[2019-11-21] MEDS: LEVOTHYROXINE SODIUM 0.075 MG TABLET NG SCH (11:22)
[2019-11-21] MEDS: LISINOPRIL 10 MG TABLET NG SCH (11:22)
[2019-11-21] MEDS: CALCIUM CARBONATE 600 MG TABLET NG SCH ×2 (11:22→17:45)
[2019-11-21] MEDS: METOPROLOL SUCCINATE 50 MG TAB.SR.24H PO SCH (11:22)
[2019-11-21] MEDS: PANTOPRAZOLE SODIUM 40 MG VIAL IV SCH ×2 (11:23→21:23)
--- NOTE | 2019-11-21 19:18 | PDOC PROGRESS REPORT ---
Subjective Progress Note for:: 11/21/19 Subjective:: Was seen and examined at bedside She is resting comfortably chronic abdominal pain controlled by current pain medications. Appetite is still fair but reports no nausea or vomiting. Had a bowel movement today. I discussed with her the need for nutrition either in the form of TPN or enteral feeding. Generally enteral feeding is always preferred over TPN explained this to her and she was agreeable for a tube feeding insertion and enteral feeding. D5 of hospital stay 11/21/19. She was seen and examined at bedside. Enteral tube feeding started today, so far tolerating it well. Abdominal pain adequately treated by current pain medications. Afebrile, appetite is still low. Reason For Visit: NAUSEA,VOMITING,P.O INTOLERANCE,ABDOMINAL PAIN Physical Exam Vital Signs: Temp Pulse Resp BP Pulse Ox 98.4 F 87 18 132/74 H 97 11/21/19 14:43 11/21/19 14:43 11/21/19 14:43 11/21/19 14:43 11/21/19 14:43 Intake & Output 11/20/19 11/21/19 11/22/19 06:59 06:59 06:59 Intake Total 2440 4085 1860 Output Total 1000 200 Balance 1440 3885 1860 Weight 81 kg 80.6 kg 80.6 kg General appearance: PRESENT: no acute distress, cooperative Head exam: PRESENT: atraumatic, normocephalic Eye exam: PRESENT: EOMI, PERRLA Mouth exam: PRESENT: moist Neck exam: PRESENT: full ROM. ABSENT: meningismus Respiratory exam: PRESENT: clear to auscultation shelly, symmetrical, unlabored. ABSENT: crackles Cardiovascular exam: PRESENT: RRR, +S1, +S2 Pulses: PRESENT: +2 pedal pulses bilateral Vascular exam: PRESENT: normal capillary refill GI/Abdominal exam: PRESENT: distended, normal bowel sounds, soft, tenderness. ABSENT: rebound Extremities exam: PRESENT: full ROM. ABSENT: joint swelling Musculoskeletal exam: PRESENT: full ROM Neurological exam: PRESENT: alert, awake, oriented to person, oriented to place, oriented to time Psychiatric exam: PRESENT: normal mood Skin exam: PRESENT: normal color Results Laboratory Results: 11/21/19 05:58 11/21/19 05:58 11/21/19 11/21/19 05:58 05:58 WBC 4.0 RBC 3.24 L Hgb 9.6 L Hct 27.3 L MCV 84 MCH 29.8 MCHC 35.3 RDW 14.8 H Plt Count 76 L Seg Neutrophils % 52.3 Sodium 139.3 Potassium 3.6 Chloride 112 H Carbon Dioxide 18 L Anion Gap 9 BUN 11 Creatinine 1.02 Est GFR ( Amer) > 60 Glucose 103 Calcium 6.9 L* Total Bilirubin 0.8 AST 27 Alkaline Phosphatase 79 Total Protein 5.2 L Albumin 2.7 L 11/16/19 20:05 Creatine Kinase 56 Impressions: Abdomen/Pelvis CT 11/16/19 21:37 IMPRESSION: Dilated proximal small bowel. Distal small bowel of normal caliber. These findings are suspicious for obstruction although the point of obstruction is not directly seen. Moderate amount of free fluid.. KUB X-Ray 11/21/19 00:00 IMPRESSION: Nasogastric tube in the stomach. Assessment and Plan - Diagnosis (1) Bowel obstruction Qualifiers: Intestinal obstruction type: unspecified Intestinal obstruction extent: unspecified extent Qualified Code(s): K56.609 - Unspecified intestinal obstruction, unspecified as to partial versus complete obstruction Is this a current diagnosis for this admission?: Yes Plan: - CT abdomen pelvis positive for dilated proximal small bowel, suspicion for obstruction however no point of obstruction directly noticed on imaging. -Patient is having regular bowel movement - opioid related or 2/2 biliary ca - senna for bowel regimen since patient is on opioid - diet advanced to full liquid. - started on enteral feeding today via NG tube so far tolerating (2) Abdominal pain Qualifiers: Abdominal location: generalized Qualified Code(s): R10.84 - Generalized abdominal pain Is this a current diagnosis for this admission?: Yes Plan: CT abdomen pelvis positive for dilated proximal small bowel, suspicion for obstruction however no point of obstruction directly noticed on imaging. - +ve bowel movement today - diet advanced to full liquid - Continue supportive measures. - senna for constipation - Duragesic patch per Dr. Priest. - IV morphine for breakthrough pain. (3) Acute kidney injury superimposed on CKD Is this a current diagnosis for this admission?: Yes Plan: Improved; Cr 1.51-> 1.21-> 1.19>1.13>1.02 -Prerenal, likely due to low p.o. intake and vomiting. -CT abdomen pelvis negative for any acute kidney or urinary system abnormalities. -Avoid nephrotoxic medications. -Follow-up chemistries. (4) Biliary tract cancer Is this a current diagnosis for this admission?: Yes Plan: Recently diagnosed. Currently undergoing chemotherapy. -Followed by Dr. Priest oncologist. - duragesic and morphine for pain - senna for bowel regimen - Oncology consulted. Outpatient oncology follow-up. (5) Neutropenia Qualifiers: Neutropenia type: secondary to cancer chemotherapy Qualified Code(s): D70.1 - Agranulocytosis secondary to cancer chemotherapy; T45.1X5A - Adverse effect of antineoplastic and immunosuppressive drugs, initial encounter Is this a current diagnosis for this admission?: Yes Plan: Chemotherapy-induced. Last chemotherapy 11/12/2019. -WBC 0.9 >3.5 -ANC 500>1.9 -Afebrile, no sign of acute infection. - cefepime D5 to complete 7 days - Bcx negative x 2 days - will continue to monitor - oncology consulted. (6) Hypertension Is this a current diagnosis for this admission?: Yes Plan: Resume home meds. PRN IV hydralazine and metoprolol. Adjust meds as needed. (7) Anemia Qualifiers: Anemia type: other cause Other causes of anemia: antineoplastic chemotherapy Qualified Code(s): D64.81 - Anemia due to antineoplastic chemotherapy; T45.1X5A - Adverse effect of antineoplastic and immunosuppressive drugs, initial encounter Is this a current diagnosis for this admission?: Yes Plan: -Globin continues to downtrend. From 8.8 now at 7.4 -No acute bleeding. This is likely secondary to chemotherapy -Oncology following ordered 1 unit of packed RBC -Repeat hemoglobin 10.4 -We will continue to monitor (8) Malnutrition Qualifiers: Malnutrition type: protein-calorie malnutrition Protein-calorie malnutrition severity: severe Qualified Code(s): E43 - Unspecified severe protein-calorie malnutrition Is this a current diagnosis for this admission?: Yes Plan: -Patient has a history of biliary tract cancer recently received chemo -Patient has poor appetite -Start enteral feeding today - may continue oral feeding -Dietary on consult (9) Hypocalcemia Is this a current diagnosis for this admission?: Yes Plan: -corrected Ca 7.9 - on calcium carbonate oral - Time Time Spent with patient: 25-34 minutes Medications reviewed and adjusted accordingly: Yes Anticipated Discharge Disposition: Home, Self Care Anticipated Discharge Timeframe: to be determined
[2019-11-21] MEDS: MORPHINE SULFATE 10 MG/ML INJ IV PRN (20:19)
[2019-11-21] MEDS: ATORVASTATIN CALCIUM 20 MG TABLET NG SCH (21:30)
[2019-11-22] MEDS: CEFEPIME 1 GM/D5W RTU 1 GM/50 ML RTUPB IV SCH ×2 (05:09→18:21)
[2019-11-22] MEDS: LEVOTHYROXINE SODIUM 0.075 MG TABLET NG SCH (05:09)
[2019-11-22] MEDS: LORAZEPAM INJ 2 MG/1 ML VIAL IV PRN (05:21)
[2019-11-22] MEDS: HEPARIN SOD (PORCINE) 5,000 UNIT/ML 1 ML VIAL SUBCUT SCH ×3 (05:22→21:30)
[2019-11-22] MEDS: SENNOSIDES/DOCUSATE 8.6-50 MG 1 EACH TABLET PO SCH (05:22)
[2019-11-22 07:20] LABS: ABSOLUTE LYMPHOCYTES (AUTO) 1.1 10^3/uL (0.5-4.7); ABSOLUTE MONOCYTES (AUTO) 0.7 10^3/uL (0.1-1.4); ABSOLUTE NEUT (AUTO) 2.6 10^3/uL (1.7-8.2); BASOPHILS % (AUTO) 0.1 % (0-2); EOSINOPHILS % (AUTO) 0.1 % (0-6); HEMATOCRIT 25.3 % (36.0-47.0); LYMPHOCYTES % (AUTO) 25.7 % (13-45); MEAN CORPUSCULAR HEMOGLOBIN 29.7 pg (27.0-33.4); MEAN CORPUSCULAR HGB CONC 35.4 g/dL (32.0-36.0); MEAN CORPUSCULAR VOLUME 84 fl (80-97); MONOCYTES % (AUTO) 15.2 % (3-13); RED BLOOD COUNT 3.01 10^6/uL (3.72-5.28); RED CELL DISTRIBUTION WIDTH 14.8 % (11.5-14.0); SEGMENTED NEUTROPHILS % (AUTO) 58.9 % (42-78); TOTAL CELLS COUNTED % (AUTO) 100 %; WHITE BLOOD COUNT 4.4 10^3/uL (4.0-10.5)
[2019-11-22 07:28] LABS: ALBUMIN 2.3 g/dL (3.5-5.0); ALKALINE PHOSPHATASE 78 U/L (38-126); ANION GAP 8 (5-19); ASPARTATE AMINO TRANSFERASE 27 U/L (14-36); BILIRUBIN,DIRECT 0.2 mg/dL (0.0-0.4); BILIRUBIN,TOTAL 0.6 mg/dL (0.2-1.3); BLOOD UREA NITROGEN 10 mg/dL (7-20); CARBON DIOXIDE 18 mmol/L (22-30); CHLORIDE 111 mmol/L (98-107); GLUCOSE 101 mg/dL (75-110); POTASSIUM 3.1 mmol/L (3.6-5.0); TOTAL PROTEIN 4.7 g/dL (6.3-8.2)
[2019-11-22 07:39] LABS: CALCIUM 6.4 mg/dL (8.4-10.2)
[2019-11-22 08:04] LABS: PLATELET COUNT 82 10^3/uL (150-450)
--- NOTE | 2019-11-22 08:30 | PDOC PROGRESS REPORT ---
Subjective Progress Note for:: 11/22/19 Subjective:: Tube feeds were tolerated. Patient seems interested in trying to eat something solid today. I will put on a regular diet. Reason For Visit: NAUSEA,VOMITING,P.O INTOLERANCE,ABDOMINAL PAIN Physical Exam Vital Signs: Temp Pulse Resp BP Pulse Ox 98.5 F 93 18 148/81 H 97 11/21/19 23:57 11/21/19 23:57 11/21/19 23:57 11/21/19 23:57 11/21/19 23:57 Intake & Output 11/21/19 11/22/19 11/23/19 06:59 06:59 06:59 Intake Total 4085 2100 Output Total 200 Balance 3885 2100 Weight 80.6 kg 80.6 kg General appearance: PRESENT: no acute distress, well-developed, well-nourished Head exam: PRESENT: atraumatic, normocephalic Eye exam: PRESENT: conjunctiva pink, EOMI, PERRLA. ABSENT: scleral icterus Ear exam: PRESENT: normal external ear exam Mouth exam: PRESENT: moist, tongue midline Neck exam: ABSENT: carotid bruit, JVD, lymphadenopathy, thyromegaly Respiratory exam: PRESENT: clear to auscultation shelly. ABSENT: rales, rhonchi, wheezes Cardiovascular exam: PRESENT: RRR. ABSENT: diastolic murmur, rubs, systolic murmur Pulses: PRESENT: normal dorsalis pedis pul Vascular exam: PRESENT: normal capillary refill GI/Abdominal exam: PRESENT: normal bowel sounds, soft. ABSENT: distended, guarding, mass, organolmegaly, rebound, tenderness Rectal exam: PRESENT: deferred Extremities exam: PRESENT: full ROM. ABSENT: calf tenderness, clubbing, pedal edema Neurological exam: PRESENT: alert, awake, oriented to person, oriented to place, oriented to time, oriented to situation, CN II-XII grossly intact. ABSENT: motor sensory deficit Psychiatric exam: PRESENT: appropriate affect, normal mood. ABSENT: homicidal ideation, suicidal ideation Skin exam: PRESENT: dry, intact, warm. ABSENT: cyanosis, rash Results Laboratory Results: 11/22/19 06:00 11/22/19 06:00 11/22/19 11/22/19 06:00 06:00 WBC 4.4 RBC 3.01 L Hgb 9.0 L Hct 25.3 L MCV 84 MCH 29.7 MCHC 35.4 RDW 14.8 H Plt Count 82 L Seg Neutrophils % 58.9 Sodium 137.2 Potassium 3.1 L Chloride 111 H Carbon Dioxide 18 L Anion Gap 8 BUN 10 Creatinine 0.93 Est GFR ( Amer) > 60 Glucose 101 Calcium 6.4 L* Total Bilirubin 0.6 AST 27 Alkaline Phosphatase 78 Total Protein 4.7 L Albumin 2.3 L 11/17/19 07:02 Blood Blood Culture - Final NO GROWTH IN 5 DAYS 11/17/19 06:36 Blood Blood Culture - Final NO GROWTH IN 5 DAYS 11/16/19 20:05 Creatine Kinase 56 Impressions: Abdomen/Pelvis CT 11/16/19 21:37 IMPRESSION: Dilated proximal small bowel. Distal small bowel of normal caliber. These findings are suspicious for obstruction although the point of obstruction is not directly seen. Moderate amount of free fluid.. KUB X-Ray 11/21/19 00:00 IMPRESSION: Nasogastric tube in the stomach. Assessment & Plan - Diagnosis (1) Nausea & vomiting Qualifiers: Vomiting type: bilious vomiting Qualified Code(s): R11.14 - Bilious vomiting Is this a current diagnosis for this admission?: Yes Plan: Seems to be improving. Advance diet to regular and see if she can eat a little bit of a regular diet. (2) Abdominal pain Qualifiers: Abdominal location: generalized Qualified Code(s): R10.84 - Generalized abdominal pain Is this a current diagnosis for this admission?: Yes Plan: Improved. But had some bouts of confusion yesterday. We will need to monitor pain medication. (3) Biliary tract cancer Is this a current diagnosis for this admission?: Yes Plan: Would be due for cycle #2 next week. May consider giving inpatient. (4) Neutropenia Qualifiers: Neutropenia type: secondary to cancer chemotherapy Qualified Code(s): D70.1 - Agranulocytosis secondary to cancer chemotherapy; T45.1X5A - Adverse effect of antineoplastic and immunosuppressive drugs, initial encounter Is this a current diagnosis for this admission?: Yes Plan: Improved. We can discontinue precautions now. (5) Malnutrition Qualifiers: Malnutrition type: protein-calorie malnutrition Protein-calorie malnutrition severity: severe Qualified Code(s): E43 - Unspecified severe protein-calorie malnutrition Is this a current diagnosis for this admission?: Yes Plan: Continue tube feeds try and advance diet - Time Time Spent with patient: 25-34 minutes
[2019-11-22] MEDS: METOPROLOL SUCCINATE 50 MG TAB.SR.24H PO SCH (11:00)
[2019-11-22] MEDS: LISINOPRIL 10 MG TABLET NG SCH (11:01)
[2019-11-22] MEDS: CALCIUM CARBONATE 600 MG TABLET NG SCH ×2 (11:01→18:19)
[2019-11-22] MEDS: SERTRALINE HCL 50 MG TABLET NG SCH (11:02)
[2019-11-22] MEDS: AMITRIPTYLINE HCL 75 MG TABLET NG SCH (11:03)
[2019-11-22] MEDS: PANTOPRAZOLE SODIUM 40 MG VIAL IV SCH ×2 (11:03→22:02)
[2019-11-22] MEDS: DEXTROSE 5%-NORMAL SALINE 1,000 ML IV PRN (11:04)
[2019-11-22] MEDS: MAGNESIUM SULFATE/D5W 1 GM/100 ML RTUPB IV SCH ×2 (11:06→13:56)
[2019-11-22] MEDS: CALCIUM GLUC IN NACL, ISO-OSM 1 GM/50 ML RTUPB IV SCH ×2 (12:17→15:08)
[2019-11-22] MEDS ORDERED: CALCIUM GLUC IN NACL, ISO-OSM 1 GM/50 ML RTUPB IV SCH (15:00)
[2019-11-22] MEDS: POTASSI CL 20 MEQ/50 ML RIDER 20 MEQ/50 ML RTUPB IV SCH ×3 (16:19→21:37)
[2019-11-22] MEDS: POTASSIUM CHLORIDE 10 MEQ TABLET.ER PO SCH (18:20)
--- NOTE | 2019-11-22 18:20 | RADIOLOGY REPORT (SQ) ---
EXAM DESCRIPTION: KUB/ABDOMEN (SINGLE VIEW) IMAGES COMPLETED DATE/TIME: 11/22/2019 9:59 am REASON FOR STUDY: Check Placement of NG Tube COMPARISON: CT abdomen and pelvis, 11/16/2019. Abdominal radiograph, 11/21/2019. NUMBER OF VIEWS: One view. TECHNIQUE: Supine radiographic image of the abdomen acquired. LIMITATIONS: None. FINDINGS: BOWEL GAS PATTERN: Normal bowel gas pattern. No dilated loops. CALCIFICATIONS: No suspicious calcifications. SOFT TISSUES: No gross mass or suggestion of organomegaly. HARDWARE: Esophagogastric tube tip and side-hole are below the diaphragm within the stomach. Biliary stent remains in place. BONES: No acute fracture. No worrisome bone lesions. OTHER: No other significant finding. IMPRESSION: Esophagogastric tube is in good position. TECHNICAL DOCUMENTATION: JOB ID: [id number] 2010 [employer]- All Rights Reserved Reading location - IP/workstation name: [email or web address]
--- NOTE | 2019-11-22 18:47 | PDOC PROGRESS REPORT ---
Subjective Progress Note for:: 11/22/19 Subjective:: Was seen and examined at bedside She is resting comfortably chronic abdominal pain controlled by current pain medications. Appetite is still fair but reports no nausea or vomiting. Had a bowel movement today. I discussed with her the need for nutrition either in the form of TPN or enteral feeding. Generally enteral feeding is always preferred over TPN explained this to her and she was agreeable for a tube feeding insertion and enteral feeding. D5 of hospital stay 11/21/19. She was seen and examined at bedside. Enteral tube feeding started today, so far tolerating it well. Abdominal pain adequately treated by current pain medications. Afebrile, appetite is still low. D6 of hospital stay 11/22/19. She was seen and examined at bedside. Abdominal pain is manageable. Denies any nausea/vomiting. No BM today, passing gas. Electrolytes replaced. She has appointed her as her HCPOA. Copy of document obtained and inserted in the chart. Her stated that if she is nearing her time, he would prefer to take her home. Reason For Visit: NAUSEA,VOMITING,P.O INTOLERANCE,ABDOMINAL PAIN Physical Exam Vital Signs: Temp Pulse Resp BP Pulse Ox 98.0 F 85 16 155/79 H 99 11/22/19 16:19 11/22/19 16:19 11/22/19 16:19 11/22/19 16:19 11/22/19 16:19 Intake & Output 11/21/19 11/22/19 11/23/19 06:59 06:59 06:59 Intake Total 4085 3100 730 Output Total 200 Balance 3885 3100 730 Weight 80.6 kg 80.6 kg General appearance: PRESENT: no acute distress, cooperative Eye exam: PRESENT: EOMI, PERRLA Mouth exam: PRESENT: moist Neck exam: PRESENT: full ROM Respiratory exam: PRESENT: clear to auscultation shelly, symmetrical, unlabored Cardiovascular exam: PRESENT: RRR, +S1, +S2 Pulses: PRESENT: +2 pedal pulses bilateral Vascular exam: PRESENT: normal capillary refill GI/Abdominal exam: PRESENT: distended, normal bowel sounds, soft. ABSENT: guarding, rebound Extremities exam: PRESENT: full ROM, +1 edema Musculoskeletal exam: PRESENT: full ROM Neurological exam: PRESENT: alert, awake, oriented to person, oriented to place, oriented to time Psychiatric exam: PRESENT: normal mood Results Laboratory Results: 11/22/19 06:00 11/22/19 06:00 11/22/19 11/22/19 11/22/19 06:00 06:00 06:00 WBC 4.4 RBC 3.01 L Hgb 9.0 L Hct 25.3 L MCV 84 MCH 29.7 MCHC 35.4 RDW 14.8 H Plt Count 82 L Seg Neutrophils % 58.9 Sodium 137.2 Potassium 3.1 L Chloride 111 H Carbon Dioxide 18 L Anion Gap 8 BUN 10 Creatinine 0.93 Est GFR ( Amer) > 60 Glucose 101 Calcium 6.4 L* Magnesium 1.2 L* Total Bilirubin 0.6 AST 27 Alkaline Phosphatase 78 Total Protein 4.7 L Albumin 2.3 L 11/17/19 07:02 Blood Blood Culture - Final NO GROWTH IN 5 DAYS 11/17/19 06:36 Blood Blood Culture - Final NO GROWTH IN 5 DAYS 11/16/19 20:05 Creatine Kinase 56 Impressions: Abdomen/Pelvis CT 11/16/19 21:37 IMPRESSION: Dilated proximal small bowel. Distal small bowel of normal caliber. These findings are suspicious for obstruction although the point of obstruction is not directly seen. Moderate amount of free fluid.. KUB X-Ray 11/22/19 05:19 IMPRESSION: Esophagogastric tube is in good position. Assessment and Plan - Diagnosis (1) Malnutrition Qualifiers: Malnutrition type: protein-calorie malnutrition Protein-calorie malnutrition severity: severe Qualified Code(s): E43 - Unspecified severe protein-calorie malnutrition Is this a current diagnosis for this admission?: Yes (2) Bowel obstruction Qualifiers: Intestinal obstruction type: unspecified Intestinal obstruction extent: unspecified extent Qualified Code(s): K56.609 - Unspecified intestinal obstruction, unspecified as to partial versus complete obstruction Is this a current diagnosis for this admission?: Yes Plan: - CT abdomen pelvis positive for dilated proximal small bowel, suspicion for obstruction however no point of obstruction directly noticed on imaging. -Patient is having regular bowel movement - opioid related or 2/2 biliary ca - senna for bowel regimen since patient is on opioid - diet advanced to general diet - started on enteral feeding today via NG tube so far tolerating (3) Abdominal pain Qualifiers: Abdominal location: generalized Qualified Code(s): R10.84 - Generalized abdominal pain Is this a current diagnosis for this admission?: Yes Plan: CT abdomen pelvis positive for dilated proximal small bowel, suspicion for obstruction however no point of obstruction directly noticed on imaging. - +ve bowel movement today - diet advanced to general diet - Continue supportive measures. - senna for constipation - Duragesic patch per Dr. Priest. - IV morphine for breakthrough pain. (4) Acute kidney injury superimposed on CKD Is this a current diagnosis for this admission?: Yes Plan: RESOLVED: Cr 1.51-> 1.21-> 1.19>1.13>1.02>0.93 -Prerenal, likely due to low p.o. intake and vomiting. -CT abdomen pelvis negative for any acute kidney or urinary system abnormalities. -Avoid nephrotoxic medications. -Follow-up chemistries. (5) Biliary tract cancer Is this a current diagnosis for this admission?: Yes Plan: Recently diagnosed. Currently undergoing chemotherapy. -Followed by Dr. Priest oncologist. - duragesic and morphine for pain - senna for bowel regimen - Oncology consulted. Outpatient oncology follow-up. (6) Neutropenia Qualifiers: Neutropenia type: secondary to cancer chemotherapy Qualified Code(s): D70.1 - Agranulocytosis secondary to cancer chemotherapy; T45.1X5A - Adverse effect of antineoplastic and immunosuppressive drugs, initial encounter Is this a current diagnosis for this admission?: Yes Plan: - RESOLVED Chemotherapy-induced. Last chemotherapy 11/12/2019. -WBC 0.9 >3.5>4.4 -ANC 500>1.9 -Afebrile, no sign of acute infection. - cefepime D6 to complete 7 days - Bcx negative x 5 days - will continue to monitor - oncology consulted. (7) Hypomagnesemia with secondary hypocalcemia Is this a current diagnosis for this admission?: Yes Plan: - Mg 1.2 - Corrected Ca 7.8 - IV Ca gluconate. also on oral calcium - IV magnesium. Also on oral magnesium - will monitor daily and replace as needed (8) Anemia Qualifiers: Anemia type: other cause Other causes of anemia: antineoplastic chemotherapy Qualified Code(s): D64.81 - Anemia due to antineoplastic chemotherapy; T45.1X5A - Adverse effect of antineoplastic and immunosuppressive drugs, initial encounter Is this a current diagnosis for this admission?: Yes Plan: Hgb 9.0 -No acute bleeding. This is likely secondary to chemotherapy -s/p 1 unit PRBC 11/20/19 -We will continue to monitor (9) Hypertension Is this a current diagnosis for this admission?: Yes Plan: Resume home meds. PRN IV hydralazine and metoprolol. Adjust meds as needed. - Time Time Spent with patient: 25-34 minutes Medications reviewed and adjusted accordingly: Yes Anticipated Discharge Disposition: Home, Self Care Anticipated Discharge Timeframe: to be determined
[2019-11-22] MEDS: MORPHINE SULFATE 10 MG/ML INJ IV PRN (21:36)
[2019-11-22] MEDS: ATORVASTATIN CALCIUM 20 MG TABLET NG SCH (21:43)
[2019-11-23] MEDS: SENNOSIDES/DOCUSATE 8.6-50 MG 1 EACH TABLET PO SCH ×2 (00:25→21:46)
[2019-11-23] MEDS: HEPARIN SOD (PORCINE) 5,000 UNIT/ML 1 ML VIAL SUBCUT SCH ×3 (06:10→22:00)
[2019-11-23] MEDS: LEVOTHYROXINE SODIUM 0.075 MG TABLET NG SCH (06:24)
[2019-11-23 06:39] LABS: ALBUMIN 2.4 g/dL (3.5-5.0); ALKALINE PHOSPHATASE 83 U/L (38-126); ANION GAP 6 (5-19); ASPARTATE AMINO TRANSFERASE 33 U/L (14-36); BILIRUBIN,DIRECT 0.3 mg/dL (0.0-0.4); BILIRUBIN,TOTAL 0.7 mg/dL (0.2-1.3); BLOOD UREA NITROGEN 9 mg/dL (7-20); CALCIUM 7.2 mg/dL (8.4-10.2); CARBON DIOXIDE 19 mmol/L (22-30); CHLORIDE 111 mmol/L (98-107); GLUCOSE 93 mg/dL (75-110); POTASSIUM 3.8 mmol/L (3.6-5.0); TOTAL PROTEIN 4.8 g/dL (6.3-8.2)
[2019-11-23 06:52] LABS: HEMATOCRIT 26.3 % (36.0-47.0); HEMOGLOBIN 9.3 g/dL (12.0-15.5); MEAN CORPUSCULAR HEMOGLOBIN 29.7 pg (27.0-33.4); MEAN CORPUSCULAR HGB CONC 35.4 g/dL (32.0-36.0); MEAN CORPUSCULAR VOLUME 84 fl (80-97); PLATELET COUNT 115 10^3/uL (150-450); RED BLOOD COUNT 3.14 10^6/uL (3.72-5.28); RED CELL DISTRIBUTION WIDTH 14.8 % (11.5-14.0); WHITE BLOOD COUNT 5.2 10^3/uL (4.0-10.5)
[2019-11-23] MEDS: CEFEPIME 1 GM/D5W RTU 1 GM/50 ML RTUPB IV SCH ×2 (06:54→18:01)
[2019-11-23 07:23] LABS: ABSOLUTE LYMPHOCYTES# (MANUAL) 2.3 10^3/uL (0.5-4.7); ABSOLUTE MONOCYTES # (MANUAL) 0.1 10^3/uL (0.1-1.4); BASOPHILS % (MANUAL) 0 % (0-2); EOSINOPHILS % (MANUAL) 0 % (0-6); LYMPHOCYTES % (MANUAL) 43 % (13-45); MONOCYTES % (MANUAL) 1 % (3-13); SEGMENTED NEUTROPHILS % (MAN) 54 % (42-78); TOTAL CELLS COUNTED 100
[2019-11-23 07:24] LABS: ANISOCYTOSIS 1+; OVALOCYTES SLIGHT; POIKILOCYTOSIS SLIGHT; POLYCHROMASIA SLIGHT; TEAR DROP CELLS SLIGHT; TOXIC GRANULATION 1+
[2019-11-23 07:25] LABS: PLATELET COMMENT DECREASED
[2019-11-23] MEDS: POTASSI CL 20 MEQ/50 ML RIDER 20 MEQ/50 ML RTUPB IV SCH ×2 (09:31→09:32)
[2019-11-23] MEDS ORDERED: MORPHINE SULFATE 10 MG/ML INJ IV PRN (09:39)
[2019-11-23] MEDS ORDERED: MAGNESIUM CITRATE 296 ML BOTTLE PO SCH (10:00)
[2019-11-23] MEDS ORDERED: BISACODYL 5 MG TABEC PO ONE (10:15)
[2019-11-23] MEDS: METOPROLOL SUCCINATE 50 MG TAB.SR.24H PO SCH (10:41)
[2019-11-23] MEDS: CALCIUM CARBONATE 600 MG TABLET NG SCH ×2 (10:41→17:59)
[2019-11-23] MEDS: LISINOPRIL 10 MG TABLET NG SCH (10:42)
[2019-11-23] MEDS: MAGNESIUM OXIDE 400 MG TABLET NG SCH ×2 (10:42→17:59)
[2019-11-23] MEDS: SERTRALINE HCL 50 MG TABLET NG SCH (10:42)
[2019-11-23] MEDS: PANTOPRAZOLE SODIUM 40 MG VIAL IV SCH ×2 (10:43→21:46)
[2019-11-23] MEDS: FENTANYL 50 MCG/HR PATCH.TD72 TD SCH (10:45)
[2019-11-23] MEDS: AMITRIPTYLINE HCL 75 MG TABLET NG SCH (10:50)
--- NOTE | 2019-11-23 11:37 | PDOC PROGRESS REPORT ---
Subjective Progress Note for:: 11/23/19 Subjective:: Was seen and examined at bedside She is resting comfortably chronic abdominal pain controlled by current pain medications. Appetite is still fair but reports no nausea or vomiting. Had a bowel movement today. I discussed with her the need for nutrition either in the form of TPN or enteral feeding. Generally enteral feeding is always preferred over TPN explained this to her and she was agreeable for a tube feeding insertion and enteral feeding. D5 of hospital stay 11/21/19. She was seen and examined at bedside. Enteral tube feeding started today, so far tolerating it well. Abdominal pain adequately treated by current pain medications. Afebrile, appetite is still low. D6 of hospital stay 11/22/19. She was seen and examined at bedside. Abdominal pain is manageable. Denies any nausea/vomiting. No BM today, passing gas. Electrolytes replaced. She has appointed her as her HCPOA. Copy of document obtained and inserted in the chart. Her stated that if she is nearing her time, he would prefer to take her home. D7 of hospital stay 11/23/19. She was seen and examined at bedside. She reports better appetite than yesterday. No BM for 3 days, able to pass gas, no nausea/vomiting. WBC count has been stable. She is D7 of cefepime. Electrolytes replaced. Reason For Visit: NAUSEA,VOMITING,P.O INTOLERANCE,ABDOMINAL PAIN Physical Exam Vital Signs: Temp Pulse Resp BP Pulse Ox 98.4 F 91 17 136/78 H 97 11/23/19 07:19 11/23/19 07:19 11/23/19 07:19 11/23/19 07:19 11/23/19 07:19 Intake & Output 11/22/19 11/23/19 11/24/19 06:59 06:59 06:59 Intake Total 3100 920 90 Balance 3100 920 90 Weight 80.6 kg 80 kg General appearance: PRESENT: no acute distress, cooperative Head exam: PRESENT: atraumatic, normocephalic Eye exam: PRESENT: EOMI, PERRLA Mouth exam: PRESENT: moist, other - NG tube in place Neck exam: PRESENT: full ROM. ABSENT: JVD, lymphadenopathy Respiratory exam: PRESENT: clear to auscultation shelly, symmetrical, unlabored Cardiovascular exam: PRESENT: RRR, +S1, +S2 Pulses: PRESENT: +2 pedal pulses bilateral GI/Abdominal exam: PRESENT: distended, hypoactive bowel sounds, soft. ABSENT: guarding, rebound Extremities exam: PRESENT: full ROM Musculoskeletal exam: PRESENT: full ROM Neurological exam: PRESENT: alert, oriented to person, oriented to place, oriented to time, oriented to situation Psychiatric exam: PRESENT: normal mood Skin exam: PRESENT: normal color Results Laboratory Results: 11/23/19 05:37 11/23/19 05:37 11/23/19 11/23/19 05:37 05:37 WBC 5.2 RBC 3.14 L Hgb 9.3 L Hct 26.3 L MCV 84 MCH 29.7 MCHC 35.4 RDW 14.8 H Plt Count 115 L Seg Neutrophils % Not Reportable Sodium 135.9 L Potassium 3.8 Chloride 111 H Carbon Dioxide 19 L Anion Gap 6 BUN 9 Creatinine 0.85 Est GFR ( Amer) > 60 Glucose 93 Calcium 7.2 L Total Bilirubin 0.7 AST 33 Alkaline Phosphatase 83 Total Protein 4.8 L Albumin 2.4 L 11/16/19 20:05 Creatine Kinase 56 Impressions: Abdomen/Pelvis CT 11/16/19 21:37 IMPRESSION: Dilated proximal small bowel. Distal small bowel of normal caliber. These findings are suspicious for obstruction although the point of obstruction is not directly seen. Moderate amount of free fluid.. KUB X-Ray 11/22/19 05:19 IMPRESSION: Esophagogastric tube is in good position. Assessment and Plan - Diagnosis (1) Malnutrition Qualifiers: Malnutrition type: protein-calorie malnutrition Protein-calorie malnutrition severity: severe Qualified Code(s): E43 - Unspecified severe protein-calorie malnutrition Is this a current diagnosis for this admission?: Yes Plan: -Patient has a history of biliary tract cancer recently received chemo -Patient has poor appetite -currently tolerating enteral feeding as well as general diet -plan is to d/c enteral feeding once her appetite has picked up more hopefully by tomorrow -Dietary on consult (2) Bowel obstruction Qualifiers: Intestinal obstruction type: unspecified Intestinal obstruction extent: unspecified extent Qualified Code(s): K56.609 - Unspecified intestinal obstruction, unspecified as to partial versus complete obstruction Is this a current diagnosis for this admission?: Yes Plan: - CT abdomen pelvis positive for dilated proximal small bowel, suspicion for obstruction however no point of obstruction directly noticed on imaging. -last BM - opioid related or 2/2 biliary ca - senna and miralax for bowel regimen since patient is on opioid - so far tolerating enteral feeding (3) Abdominal pain Qualifiers: Abdominal location: generalized Qualified Code(s): R10.84 - Generalized abdominal pain Is this a current diagnosis for this admission?: Yes Plan: CT abdomen pelvis positive for dilated proximal small bowel, suspicion for obstruction however no point of obstruction directly noticed on imaging. - last BM - diet advanced to general diet - Continue supportive measures. - senna and miralax for constipation - Duragesic patch per Dr. Priest. - IV morphine 2mg q3 for breakthrough pain. (4) Acute kidney injury superimposed on CKD Is this a current diagnosis for this admission?: Yes Plan: RESOLVED: Cr 1.51-> 1.21-> 1.19>1.13>1.02>0.93 -Prerenal, likely due to low p.o. intake and vomiting. -CT abdomen pelvis negative for any acute kidney or urinary system abnormalities. -Avoid nephrotoxic medications. -Follow-up chemistries. (5) Biliary tract cancer Is this a current diagnosis for this admission?: Yes Plan: Recently diagnosed. Currently undergoing chemotherapy. -Followed by Dr. Priest oncologist. - duragesic and morphine for pain - senna and miralax for bowel regimen - Oncology consulted. Outpatient oncology follow-up. (6) Neutropenia Qualifiers: Neutropenia type: secondary to cancer chemotherapy Qualified Code(s): D70.1 - Agranulocytosis secondary to cancer chemotherapy; T45.1X5A - Adverse effect of antineoplastic and immunosuppressive drugs, initial encounter Is this a current diagnosis for this admission?: Yes Plan: - RESOLVED Chemotherapy-induced. Last chemotherapy 11/12/2019. -WBC 5.2 -Afebrile, no sign of acute infection. - cefepime completed 7 days - Bcx negative x 5 days - will continue to monitor - oncology consulted. (7) Hypomagnesemia with secondary hypocalcemia Is this a current diagnosis for this admission?: Yes Plan: - Mg 1.2 - Corrected Ca 7.8 - IV Ca gluconate to replace. also on oral calcium - IV magnesium. Also on oral magnesium - will monitor daily and replace as needed (8) Anemia Qualifiers: Anemia type: other cause Other causes of anemia: antineoplastic chem otherapy Qualified Code(s): D64.81 - Anemia due to antineoplastic chemoth erapy; T45.1X5A - Adverse effect of antineoplastic and immunosuppressive drugs, initial encounter Is this a current diagnosis for this admission?: Yes Plan: Hgb 9.0>9.3 -No acute bleeding. This is likely secondary to chemotherapy -s/p 1 unit PRBC 11/20/19 -We will continue to monitor (9) Hypertension Is this a current diagnosis for this admission?: Yes - Time Time Spent with patient: 15-24 minutes Anticipated Discharge Disposition: Home, Self Care Anticipated Discharge Timeframe: to be determined
--- NOTE | 2019-11-23 11:55 | PDOC PROGRESS REPORT ---
Subjective Progress Note for:: 11/23/19 Subjective:: Patient is tolerating tube feeds well. It has been about 48 hours since last bowel movement. Gave orders for nursing to give enema today. Not really having much in appetite to take anything more p.o. Reason For Visit: NAUSEA,VOMITING,P.O INTOLERANCE,ABDOMINAL PAIN Physical Exam Vital Signs: Temp Pulse Resp BP Pulse Ox 98.4 F 91 17 136/78 H 97 11/23/19 07:19 11/23/19 07:19 11/23/19 07:19 11/23/19 07:19 11/23/19 07:19 Intake & Output 11/22/19 11/23/19 11/24/19 06:59 06:59 06:59 Intake Total 3100 920 90 Balance 3100 920 90 Weight 80.6 kg 80 kg General appearance: PRESENT: no acute distress, well-developed, well-nourished Head exam: PRESENT: atraumatic, normocephalic Eye exam: PRESENT: conjunctiva pink, EOMI, PERRLA. ABSENT: scleral icterus Ear exam: PRESENT: normal external ear exam Mouth exam: PRESENT: moist, tongue midline Neck exam: ABSENT: carotid bruit, JVD, lymphadenopathy, thyromegaly Respiratory exam: PRESENT: clear to auscultation shelly. ABSENT: rales, rhonchi, wheezes Cardiovascular exam: PRESENT: RRR. ABSENT: diastolic murmur, rubs, systolic murmur Pulses: PRESENT: normal dorsalis pedis pul Vascular exam: PRESENT: normal capillary refill GI/Abdominal exam: PRESENT: normal bowel sounds, soft. ABSENT: distended, guarding, mass, organolmegaly, rebound, tenderness Rectal exam: PRESENT: deferred Extremities exam: PRESENT: full ROM. ABSENT: calf tenderness, clubbing, pedal edema Neurological exam: PRESENT: alert, awake, oriented to person, oriented to place, oriented to time, oriented to situation, CN II-XII grossly intact. ABSENT: motor sensory deficit Psychiatric exam: PRESENT: appropriate affect, normal mood. ABSENT: homicidal ideation, suicidal ideation Skin exam: PRESENT: dry, intact, warm. ABSENT: cyanosis, rash Results Laboratory Results: 11/23/19 05:37 11/23/19 05:37 11/23/19 11/23/19 05:37 05:37 WBC 5.2 RBC 3.14 L Hgb 9.3 L Hct 26.3 L MCV 84 MCH 29.7 MCHC 35.4 RDW 14.8 H Plt Count 115 L Seg Neutrophils % Not Reportable Sodium 135.9 L Potassium 3.8 Chloride 111 H Carbon Dioxide 19 L Anion Gap 6 BUN 9 Creatinine 0.85 Est GFR ( Amer) > 60 Glucose 93 Calcium 7.2 L Total Bilirubin 0.7 AST 33 Alkaline Phosphatase 83 Total Protein 4.8 L Albumin 2.4 L 11/16/19 20:05 Creatine Kinase 56 Impressions: Abdomen/Pelvis CT 11/16/19 21:37 IMPRESSION: Dilated proximal small bowel. Distal small bowel of normal caliber. These findings are suspicious for obstruction although the point of obstruction is not directly seen. Moderate amount of free fluid.. KUB X-Ray 11/22/19 05:19 IMPRESSION: Esophagogastric tube is in good position. Assessment & Plan - Diagnosis (1) Nausea & vomiting Qualifiers: Vomiting type: bilious vomiting Qualified Code(s): R11.14 - Bilious vomiting Is this a current diagnosis for this admission?: Yes Plan: Improving, NG tube feeds are being well-tolerated, ultimately we need to get to a G-tube possibility. Will discuss with general surgery. (2) Abdominal pain Qualifiers: Abdominal location: generalized Qualified Code(s): R10.84 - Generalized abdominal pain Is this a current diagnosis for this admission?: Yes Plan: Continue current pain regimen (3) Biliary tract cancer Is this a current diagnosis for this admission?: Yes Plan: Hopeful continued chemotherapy as an outpatient but we need to make sure that nutrition is appropriate before we can give more. (4) Neutropenia Qualifiers: Neutropenia type: secondary to cancer chemotherapy Qualified Code(s): D70.1 - Agranulocytosis secondary to cancer chemotherapy; T45.1X5A - Adverse effect of antineoplastic and immunosuppressive drugs, initial encounter Is this a current diagnosis for this admission?: Yes Plan: Improved (5) Malnutrition Qualifiers: Malnutrition type: protein-calorie malnutrition Protein-calorie malnutrition severity: severe Qualified Code(s): E43 - Unspecified severe protein-calorie malnutrition Is this a current diagnosis for this admission?: Yes Plan: Continue tube feeds - Time Time Spent with patient: 35 or more minutes
[2019-11-23] MEDS: POTASSIUM CHLORIDE 10 MEQ TABLET.ER PO SCH (18:01)
[2019-11-23] MEDS: ATORVASTATIN CALCIUM 20 MG TABLET NG SCH (21:46)
[2019-11-24] MEDS ORDERED: TEMAZEPAM 7.5 MG CAPSULE PO PRN (01:50)
[2019-11-24] MEDS ORDERED: LORAZEPAM INJ 2 MG/1 ML VIAL IV PRN (03:31)
[2019-11-24 05:35] LABS: ABSOLUTE LYMPHOCYTES (AUTO) 1.5 10^3/uL (0.5-4.7); ABSOLUTE MONOCYTES (AUTO) 0.7 10^3/uL (0.1-1.4); ABSOLUTE NEUT (AUTO) 2.3 10^3/uL (1.7-8.2); BASOPHILS % (AUTO) 0.5 % (0-2); EOSINOPHILS % (AUTO) 0.4 % (0-6); HEMATOCRIT 23.8 % (36.0-47.0); HEMOGLOBIN 8.6 g/dL (12.0-15.5); LYMPHOCYTES % (AUTO) 33.2 % (13-45); MEAN CORPUSCULAR HGB CONC 36.1 g/dL (32.0-36.0); MEAN CORPUSCULAR VOLUME 83 fl (80-97); MONOCYTES % (AUTO) 15.9 % (3-13); PLATELET COUNT 139 10^3/uL (150-450); RED BLOOD COUNT 2.86 10^6/uL (3.72-5.28); RED CELL DISTRIBUTION WIDTH 14.7 % (11.5-14.0); TOTAL CELLS COUNTED % (AUTO) 100 %; WHITE BLOOD COUNT 4.6 10^3/uL (4.0-10.5)
[2019-11-24 06:08] LABS: ALBUMIN 2.3 g/dL (3.5-5.0); ALKALINE PHOSPHATASE 86 U/L (38-126); ASPARTATE AMINO TRANSFERASE 34 U/L (14-36); BILIRUBIN,DIRECT 0.3 mg/dL (0.0-0.4); BILIRUBIN,TOTAL 0.7 mg/dL (0.2-1.3); BLOOD UREA NITROGEN 10 mg/dL (7-20); CALCIUM 7.3 mg/dL (8.4-10.2); CHLORIDE 109 mmol/L (98-107); GLUCOSE 90 mg/dL (75-110)
[2019-11-24 06:14] LABS: ANION GAP 5 (5-19); CARBON DIOXIDE 20 mmol/L (22-30)
[2019-11-24] MEDS: CEFEPIME 1 GM/D5W RTU 1 GM/50 ML RTUPB IV SCH (06:37)
[2019-11-24] MEDS: LEVOTHYROXINE SODIUM 0.075 MG TABLET NG SCH (06:37)
[2019-11-24] MEDS: HEPARIN SOD (PORCINE) 5,000 UNIT/ML 1 ML VIAL SUBCUT SCH (06:48)
--- NOTE | 2019-11-24 07:03 | ADVANCED CARE ---
Attendance: . Length of time <30 min Resuscitation Status: Full Code Discussion: Present is the patient, her Yogesh Duval and myself. She indicated that she has appointed her as her HCPOA. advance directive papers as well as HCPOA papers were obtained from her . Copy was obtained and inserted in the patients paper chart. Her expressed to me outside the room that if her " time is up" he would like to take her home instead of staying in the hospital. I asked him to clarify what he means by his statement, he stated that what he meant what if she is dying. Per review of advance directive. It is stated that her life not be prolonged by extraordinary means, artificial nutrition or hydration or other life prolonging procedures if they are 1. she has an incurable or irreversible condition that will result in my within a relatively short period of time, 2. she becomes unconsious and her health care providers determine that, to a high degree of medical certainty, that she will never regain consciousness, 3. suffer from advanced dementia. Please refer to hard copy of her advance directive for full directives. Document(s) Completed: Advance directive and HCPOA forms from . Hard copy inserted in the chart. Time Spent: <30 min
[2019-11-24] MEDS ORDERED: PANTOPRAZOLE SODIUM 40 MG VIAL IV SCH (10:00)
[2019-11-24] MEDS ORDERED: POLYETHYLENE GLYCOL 3350 POWDER 17 GM/1 PACKET PO SCH (10:00)
[2019-11-24] MEDS: METOPROLOL SUCCINATE 50 MG TAB.SR.24H PO SCH (10:04)
[2019-11-24] MEDS: MAGNESIUM OXIDE 400 MG TABLET NG SCH (10:04)
[2019-11-24] MEDS: AMITRIPTYLINE HCL 75 MG TABLET NG SCH (10:05)
[2019-11-24] MEDS: LISINOPRIL 10 MG TABLET NG SCH (10:05)
[2019-11-24] MEDS: SERTRALINE HCL 50 MG TABLET NG SCH (10:06)
[2019-11-24] MEDS: CALCIUM CARBONATE 600 MG TABLET NG SCH (10:06)
[2019-11-24 11:09] VITALS: BP 136/72
--- NOTE | 2019-11-24 17:36 | PDOC DISCHARGE SUMMARY ---
Impression - Admit/DC Date/PCP Admission Date/Primary Care Provider: 11/17/19 01:57 SUSHANT GIBBS, Discharge Date: 11/24/19 - Discharge Diagnosis (1) Malnutrition Is this a current diagnosis for this admission?: Yes (2) Bowel obstruction Is this a current diagnosis for this admission?: Yes (3) Abdominal pain Is this a current diagnosis for this admission?: Yes (4) Acute kidney injury superimposed on CKD Is this a current diagnosis for this admission?: Yes (5) Biliary tract cancer Is this a current diagnosis for this admission?: Yes (6) Neutropenia Is this a current diagnosis for this admission?: Yes (7) Hypomagnesemia with secondary hypocalcemia Is this a current diagnosis for this admission?: Yes (8) Anemia Is this a current diagnosis for this admission?: Yes (9) Hypertension Is this a current diagnosis for this admission?: Yes - Additional Information Resuscitation Status: Full Code Discharge Diet: As Tolerated Discharge Activity: Activity As Tolerated Referrals: SATURNINO KUHN MD [ACTIVE STAFF] - Prescriptions: Calcium Carbonate [Caltrate 600 mg Tablet] 600 mg NG BID 30 Days #30 tablet Potassium Chloride [Klor-Con 10 Meq Tablet ER] 20 meq PO QPM 14 Days #14 tablet.er Magnesium Oxide [Mag-Ox 400 mg Tablet] 400 mg NG BID 14 Days #30 tablet Polyethylene Glycol 3350 [Miralax Powder 17 gm/Packet] 17 gm PO DAILY 60 Days #14 powd.pack Ondansetron [Zofran Odt 4 mg Tablet] 4 mg PO Q6HP PRN 7 Days #30 tab.rapdis PRN Reason: Home Medications: Amitriptyline HCl [Elavil 75 mg Tablet] 75 mg PO DAILY 11/17/19 Atorvastatin Calcium [Lipitor 20 mg Tablet] 20 mg PO QHS 11/17/19 Levothyroxine Sodium [Synthroid 0.075 mg Tablet] 0.075 mg PO DAILY 11/17/19 Lisinopril 20 mg PO DAILY 11/17/19 Metoprolol Succinate 100 mg PO DAILY 11/17/19 Sertraline HCl 100 mg PO DAILY 11/17/19 Calcium Carbonate [Caltrate 600 mg Tablet] 600 mg NG BID 30 Days #30 tablet 11/24/19 Fentanyl [Duragesic 50 Mcg/Hr Transdermal Patch] 1 each TD Q3DAYS patch.[id number] 11/24/19 Magnesium Oxide [Mag-Ox 400 mg Tablet] 400 mg NG BID 14 Days #30 tablet 11/24/19 Ondansetron [Zofran Odt 4 mg Tablet] 4 mg PO Q6HP PRN 7 Days #30 tab.rapdis 11/24/19 Polyethylene Glycol 3350 [Miralax Powder 17 gm/Packet] 17 gm PO DAILY 60 Days #14 powd.pack 11/24/19 Potassium Chloride [Klor-Con 10 Meq Tablet ER] 20 meq PO QPM 14 Days #14 tablet.er 11/24/19 History of Present Illiness History of Present Illness: GIOVANNY BARROSO is a 63 year old female past medical history of hypertension, hyperlipidemia, recently diagnosed biliary carcinoma currently on chemotherapy followed by Dr. Kuhn, patient had a Port-A-Cath placed on October 28, developed her second chemotherapy on 11/12/2019. Patient presenting to ED complaining of nausea, vomiting, and abdominal pain. Patient initially presented to [facility] and was sent to [facility] as they were not able to access her Port-A-Cath. Since last chemotherapy patient has been feeling weak, having nonbloody bilious vomiting associated with abdominal pain and not being able to keep any food down. Abdominal pain is generalized, worse with standing and worse with eating. Last bowel movement was 2 days ago however is passing flatus, denies any fever, chest pain, shortness of breath, recent sick contact, recent travel, or being exposed to anybody with COVID 19. In ED a CT abdomen and pelvis showed dilated proximal small bowel, distal small bowel of normal caliber, findings suspicious for obstruction however no point of obstruction observed directly. Hospital Course Hospital Course: She was started on cefepime due to neutropenia. Oncology was consulted. CT abdomen showed small bowel obstruction, put on NPO. She was started on enteral feeding on D5 of admission. She received 1 unit of PRBC 11/20/2019 for a Hgb of 7.4. D5 of hospital stay 11/21/19. She was seen and examined at bedside. Enteral tube feeding started today, so far tolerating it well. Abdominal pain adequately treated by current pain medications. Afebrile, appetite is still low. D6 of hospital stay 11/22/19. She was seen and examined at bedside. Abdominal pain is manageable. Denies any nausea/vomiting. No BM today, passing gas. Electrolytes replaced. She has appointed her as her HCPOA. Copy of docu ment obtained and inserted in the chart. Her stated that if she is nearing her time, he would prefer to take her home. D7 of hospital stay 11/23/19. She was seen and examined at bedside. She reports better appetite than yesterday. No BM for 3 days, able to pass gas, no nausea/vomiting. WBC count has been stable. She is D7 of cefepime. Electrolytes replaced. Physical Exam Vital Signs: Temp Pulse Resp BP Pulse Ox 98.1 F 86 17 136/72 H 97 11/24/19 11:06 11/24/19 11:06 11/24/19 11:06 11/24/19 11:06 11/24/19 11:06 Intake & Output 11/23/19 11/24/19 11/25/19 06:59 06:59 06:59 Intake Total 920 180 50 Balance 920 180 50 Weight 80 kg 83.5 kg General appearance: PRESENT: no acute distress, cooperative Head exam: PRESENT: atraumatic, normocephalic Eye exam: PRESENT: EOMI, PERRLA Mouth exam: PRESENT: moist Neck exam: PRESENT: full ROM. ABSENT: JVD Respiratory exam: PRESENT: clear to auscultation shelly, symmetrical, unlabored Cardiovascular exam: PRESENT: RRR, +S1, +S2 GI/Abdominal exam: PRESENT: distended, normal bowel sounds, soft. ABSENT: tenderness Extremities exam: PRESENT: full ROM Musculoskeletal exam: PRESENT: full ROM Neurological exam: PRESENT: alert, awake, oriented to person, oriented to place, oriented to time, oriented to situation Psychiatric exam: PRESENT: normal mood Results Laboratory Results: WBC 4.6 10^3/uL (4.0-10.5) 11/24/19 04:45 RBC 2.86 10^6/uL (3.72-5.28) L 11/24/19 04:45 Hgb 8.6 g/dL (12.0-15.5) L 11/24/19 04:45 Hct 23.8 % (36.0-47.0) L 11/24/19 04:45 MCV 83 fl (80-97) 11/24/19 04:45 MCH 30.0 pg (27.0-33.4) 11/24/19 04:45 MCHC 36.1 g/dL (32.0-36.0) H 11/24/19 04:45 RDW 14.7 % (11.5-14.0) H 11/24/19 04:45 Plt Count 139 10^3/uL (150-450) L 11/24/19 04:45 Lymph % (Auto) 33.2 % (13-45) 11/24/19 04:45 [place] % (Auto) 15.9 % (3-13) H 11/24/19 04:45 Eos % (Auto) 0.4 % (0-6) 11/24/19 04:45 Baso % (Auto) 0.5 % (0-2) 11/24/19 04:45 Absolute Neuts (auto) 2.3 10^3/uL (1.7-8.2) 11/24/19 04:45 Absolute Lymphs (auto) 1.5 10^3/uL (0.5-4.7) 11/24/19 04:45 Absolute Monos (auto) 0.7 10^3/uL (0.1-1.4) 11/24/19 04:45 Absolute Eos (auto) 0.0 10^3/uL (0.0-0.6) 11/24/19 04:45 Absolute Basos (auto) 0.0 10^3/uL (0.0-0.2) 11/24/19 04:45 Total Counted 100 11/23/19 05:37 Seg Neutrophils % 50.0 % (42-78) 11/24/19 04:45 Seg Neuts % (Manual) 54 % (42-78) 11/23/19 05:37 Lymphocytes % (Manual) 43 % (13-45) 11/23/19 05:37 Atypical Lymphs % 2 % (0) 11/23/19 05:37 Monocytes % (Manual) 1 % (3-13) L 11/23/19 05:37 Eosinophils % (Manual) 0 % (0-6) 11/23/19 05:37 Basophils % (Manual) 0 % (0-2) 11/23/19 05:37 Abs Neuts (Manual) 2.8 10^3/uL (1.7-8.2) 11/23/19 05:37 Abs Lymphs (Manual) 2.3 10^3/uL (0.5-4.7) 11/23/19 05:37 Abs Monocytes (Manual) 0.1 10^3/uL (0.1-1.4) 11/23/19 05:37 Absolute Eos (Manual) 0.0 10^3/uL (0.0-0.6) 11/23/19 05:37 Abs Basophils (Manual) 0.0 10^3/uL (0.0-0.2) 11/23/19 05:37 Toxic Granulation 1+ 11/23/19 05:37 Platelet Comment DECREASED 11/23/19 05:37 Polychromasia SLIGHT 11/23/19 05:37 Poikilocytosis SLIGHT 11/23/19 05:37 Anisocytosis 1+ 11/23/19 05:37 Tear Drop Cells SLIGHT 11/23/19 05:37 Ovalocytes SLIGHT 11/23/19 05:37 Nydia Cells SLIGHT 11/16/19 20:05 Schistocytes SLIGHT 11/16/19 20:05 PT 14.8 SEC (11.4-15.4) 11/18/19 07:14 INR 1.14 11/18/19 07:14 Sodium 133.8 mmol/L (137-145) L 11/24/19 04:45 Potassium 4.0 mmol/L (3.6-5.0) 11/24/19 04:45 Chloride 109 mmol/L (98-107) H 11/24/19 04:45 Carbon Dioxide 20 mmol/L (22-30) L 11/24/19 04:45 Anion Gap 5 (5-19) 11/24/19 04:45 BUN 10 mg/dL (7-20) 11/24/19 04:45 Creatinine 0.89 mg/dL (0.52-1.25) 11/24/19 04:45 Est GFR ( Amer) > 60 (>60) 11/24/19 04:45 Est GFR (MDRD) Non-Af > 60 (>60) 11/24/19 04:45 Glucose 90 mg/dL (75-110) 11/24/19 04:45 Calcium 7.3 mg/dL (8.4-10.2) L 11/24/19 04:45 Phosphorus 3.0 mg/dL (2.5-4.5) 11/18/19 07:14 Magnesium 1.2 mg/dL (1.6-2.3) L* 11/22/19 06:00 Total Bilirubin 0.7 mg/dL (0.2-1.3) 11/24/19 04:45 Direct Bilirubin 0.3 mg/dL (0.0-0.4) 11/24/19 04:45 Neonat Total Bilirubin Not Reportable 11/24/19 04:45 Neonat Direct Bilirubin Not Reportable 11/24/19 04:45 Neonat Indirect Bili Not Reportable 11/24/19 04:45 AST 34 U/L (14-36) 11/24/19 04:45 ALT 15 U/L (<35) 11/24/19 04:45 Alkaline Phosphatase 86 U/L (38-126) 11/24/19 04:45 Ammonia < 8.7 umol/L (9-33) L 11/16/19 22:15 Creatine Kinase 56 U/L (30-135) 11/16/19 20:05 Total Protein 5.0 g/dL (6.3-8.2) L 11/24/19 04:45 Albumin 2.3 g/dL (3.5-5.0) L 11/24/19 04:45 Lipase 106.1 U/L (23-300) 11/18/19 07:14 Urine Color SUDHA 11/16/19 20:04 Urine Appearance CLOUDY 11/16/19 20:04 Urine pH 5.0 (5.0-9.0) 11/16/19 20:04 Ur Specific [place] 1.023 11/16/19 20:04 Urine Protein 30 mg/dL (NEGATIVE) H 11/16/19 20:04 Urine Glucose (UA) NEGATIVE mg/dL (NEGATIVE) 11/16/19 20:04 Urine Ketones 20 mg/dL (NEGATIVE) H 11/16/19 20:04 Urine Blood NEGATIVE (NEGATIVE) 11/16/19 20:04 Urine Nitrite NEGATIVE (NEGATIVE) 11/16/19 20:04 Urine Bilirubin NEGATIVE (NEGATIVE) 11/16/19 20:04 Urine Urobilinogen NEGATIVE mg/dL (<2.0) 11/16/19 20:04 Ur Leukocyte Esterase SMALL (NEGATIVE) H 11/16/19 20:04 Urine WBC (Auto) 15 /HPF 11/16/19 20:04 Urine RBC (Auto) 3 /HPF 11/16/19 20:04 U Hyaline Cast (Auto) 5 /LPF 11/16/19 20:04 Urine Bacteria (Auto) 3+ /HPF 11/16/19 20:04 Squamous Epi Cells Auto 13 /HPF 11/16/19 20:04 Urine Mucus (Auto) RARE /LPF 11/16/19 20:04 Urine Ascorbic Acid NEGATIVE (NEGATIVE) 11/16/19 20:04 Stool for White Cells NO WBCs SEEN 11/18/19 11:02 Slides for Path Review PATHOLOGIST REVIEWED 11/16/19 20:05 Blood Type O POSITIVE 11/20/19 09:05 Blood Type Confirm O POSITIVE 11/20/19 09:20 Antibody Screen NEGATIVE 11/20/19 09:05 Crossmatch See Detail 11/20/19 09:05 Impressions: Abdomen/Pelvis CT 11/16/19 21:37 IMPRESSION: Dilated proximal small bowel. Distal small bowel of normal caliber. These findings are suspicious for obstruction although the point of obstruction is not directly seen. Moderate amount of free fluid.. KUB X-Ray 11/21/19 00:00 IMPRESSION: Nasogastric tube in the stomach. KUB X-Ray 11/22/19 05:19 IMPRESSION: Esophagogastric tube is in good position. Plan Plan of Treatment: - follow up with Dr. kuhn for further chemo - no dietary restrictions - she was sent home with Ca supplements, potassium supplements and magnesium supplements. Time Spent: Less than 30 Minutes Stroke Is this a Stroke Patient?: No Acute Heart Failure - Is this a Heart Failure Patient?: No
== END 2019-11-24 11:38 | disposition home or self-care (01) | DRG 389 ==
LOC: ER 18:14 → EH 11-17 01:57 → 4S 11-17 04:40
PROVIDERS: ADMIT Internal Medicine; ATTEND Internal Medicine
PROC: 30233N1 Transfusion of Nonautologous Red Blood Cells into Peripheral Vein, Percutaneous Approach (ICD-10-PCS; principal; 2019-11-20)
DX: K56.609 Unspecified intestinal obstruction, unspecified as to partial versus complete obstruction (principal); C22.1 Intrahepatic bile duct carcinoma; R18.0 Malignant ascites; N17.9 Acute kidney failure, unspecified; C78.6 Secondary malignant neoplasm of retroperitoneum and peritoneum; E44.0 Moderate protein-calorie malnutrition; D70.1 Agranulocytosis secondary to cancer chemotherapy; E83.51 Hypocalcemia; D64.81 Anemia due to antineoplastic chemotherapy; M19.90 Unspecified osteoarthritis, unspecified site; F32.9 Major depressive disorder, single episode, unspecified; T45.1X5A Adverse effect of antineoplastic and immunosuppressive drugs, initial encounter; E78.5 Hyperlipidemia, unspecified; R11.14 Bilious vomiting; I12.9 Hypertensive chronic kidney disease with stage 1 through stage 4 chronic kidney disease, or unspecified chronic kidney disease; N18.9 Chronic kidney disease, unspecified; E83.42 Hypomagnesemia; Z79.899 Other long term (current) drug therapy; Z88.1 Allergy status to other antibiotic agents; Z88.0 Allergy status to penicillin; Z68.32 Body mass index [BMI] 32.0-32.9, adult
CPT/HCPCS: 36415; 36430; 74018; 74176; 80048; 80053; 81001; 82140; 82550; 83690; 83735; 84100; 85025; 85027; 85610; 86850; 86900; 86901; 86920; 87040; 89055; 93005; 93010; 96361; 96374; 99285; J0610; C9113; J0692; J1200; J1642; J1644; J2060; J2270; J2405; J2550; J3475; J3480; J3490; J7030; J7042; J7120; P9016

== ENCOUNTER 2019-11-25 15:36 | Emergency (ER) | payer MEDICARE, OTHER ==
--- NOTE | 2019-11-25 16:04 | ER Document Report ---
ED Medical Screen (RME) - General Chief Complaint: Leg Swelling Stated Complaint: LEFT LEG SWELLING Time Seen by Provider: 11/25/19 15:55 Primary Care Provider: SUSHANT GIBBS DO [Primary Care Provider] - Follow up as needed Mode of Arrival: Wheelchair Information source: Patient, Relative Notes: 63-year-old female presents to ED for swelling and pain to the left leg. She was just released from the hospital yesterday for infectious ascites. She states she got antibiotics. 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 She states she was also admitted for malnutrition and dehydration. Patient and family made member states that the leg is much bigger now than it was yesterday and they w ent home health came to the house they stated that she needed to be seen for venous Doppler. I have greeted and performed a rapid initial assessment of this patient. A comprehensive ED assessment and evaluation of the patient, analysis of test results and completion of medical decision making process will be conducted by an additional ED providers. TRAVEL OUTSIDE OF THE [place] IN LAST 30 DAYS: No - Related Data Allergies/Adverse Reactions: Penicillins Adverse Reaction (Intermediate, Verified 04/10/14 14:43) Hives levofloxacin [From Levaquin] Adverse Reaction (Verified 11/15/19 08:14) Past Medical History - Social History Chew tobacco use (# tins/day): No Frequency of alcohol use: None Drug Abuse: None - Past Medical History Cardiac Medical History: Reports: Hx Hypertension Denies: Hx Coronary Artery Disease, Hx Heart Attack Pulmonary Medical History: Reports: Hx Pneumonia Denies: Hx Asthma, Hx Bronchitis, Hx COPD Neurological Medical History: Reports: Hx Seizures - MED RELATED 30+ YRS AGO. Denies: Hx Cerebrovascular Accident Musculoskeltal Medical History: Reports Hx Arthritis Psychiatric Medical History: Reports: Hx Depression Past Surgical History: Reports: Hx Hysterectomy - Immunizations Hx Diphtheria, Pertussis, Tetanus Vaccination: Yes Physical Exam - Vital signs Vitals: Temp 98.8 F 11/25/19 15:37 Course - Vital Signs Vital signs: Temp Pulse Resp BP Pulse Ox 98.8 F 107 H 20 150/86 H 95 11/25/19 15:40 11/25/19 15:40 11/25/19 15:40 11/25/19 15:40 11/25/19 15:40 Doctor's Discharge - Discharge Referrals: SUSHANT GIBBS, DO [Primary Care Provider] - Follow up as needed
--- NOTE | 2019-11-25 16:48 | ER Document Report ---
ED General - General Chief Complaint: Leg Swelling Stated Complaint: LEFT LEG SWELLING Time Seen by Provider: 11/25/19 15:55 Primary Care Provider: SUSHANT GIBBS DO [Primary Care Provider] - Follow up as needed SATURNINO DREW MD [ACTIVE STAFF] - Follow up as needed Mode of Arrival: Wheelchair Notes: Patient presents with mildly painful left leg swelling from the thigh to the foot onset about yesterday when she was discharged from the hospital. She says that the people in the hospital saw him, but did not tell her what was wrong. There is mild pain, it is been no injury no redness no fever. 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 Bria scott. Is not taking blood thinners. No chest pain or shortness of breath, eating and drinking at her baseline which is not great but no worse than when she was discharged. No numbness or tingling. TRAVEL OUTSIDE OF THE [place] IN LAST 30 DAYS: No - Related Data Allergies/Adverse Reactions: Penicillins Adverse Reaction (Intermediate, Verified 04/10/14 14:43) Hives levofloxacin [From Levaquin] Adverse Reaction (Verified 11/15/19 08:14) Past Medical History - General Information source: Patient, Relative - Social History Smoking Status: Unknown if Ever Smoked Chew tobacco use (# tins/day): No Frequency of alcohol use: None Drug Abuse: None Family History: Reviewed & Not Pertinent Patient has homicidal ideation: No - Past Medical History Cardiac Medical History: Reports: Hx Hypertension Denies: Hx Coronary Artery Disease, Hx Heart Attack Pulmonary Medical History: Reports: Hx Pneumonia Denies: Hx Asthma, Hx Bronchitis, Hx COPD Neurological Medical History: Reports: Hx Seizures - MED RELATED 30+ YRS AGO. Denies: Hx Cerebrovascular Accident Musculoskeletal Medical History: Reports Hx Arthritis Psychiatric Medical History: Reports: Hx Depression Past Surgical History: Reports: Hx Hysterectomy - Immunizations Hx Diphtheria, Pertussis, Tetanus Vaccination: Yes Review of Systems - Review of Systems Notes: REVIEW OF SYSTEMS GEN: Denies fever, chills, weight loss ENT: Denies sore throat, nasal discharge, ear pain EYES: Denies blurry vision, eye pain, discharge CV: Denies chest pain, palpitations, edema RESP: Denies cough, shortness of breath, wheezing GI: Pain secondary cancer unchanged MSK: Swelling SKIN: Denies rash, skin lesions LYMPH: Denies swollen glands/lymph nodes NEURO: Denies headache, focal weakness or numbness, dizziness PSYCH: Denies depression, suicidal or homicidal ideation PHYSICAL EXAMINATION General: No acute distress, well-nourished Head: Atraumatic, normocephalic ENT: Mouth normal, oropharynx moist, no exudates or tonsillar enlargement Eyes: Conjunctiva normal, pupils equal, lids normal Neck: No JVD, supple, no guarding CVS: Normal rate, regular rhythm, no murmurs Resp: No resp distress, equal and normal breath sounds bilaterally GI: Nondistended, soft, no tenderness to palpation, no rebound or guarding Ext: Edematous from ankle to thigh without phlegmasia or skin color change redness Back: No CVA or midline TTP Skin: No rash, warm Lymphatic: No lymphadeopathy noted Neuro: Awake, alert. Face symmetric. GCS 15. Physical Exam - Vital signs Vitals: Temp 98.8 F 11/25/19 15:37 Course - Re-evaluation Re-evalutation: 11/25/19 23:06 Left leg swelling in a cancer patient. photonics engineering technician found nonocclusive long segment DVT in the femoral and popliteal Discussed with Myla recommended outpatient Eliquis. Given Lovenox tonight given that the pharmacies are all closed. Discussed at length with patient and . Given precautions for blood thinner use, and follow-up instructions with hematology oncology I have discussed with the patient there likely diagnosis, aftercare plan, follow-up plans and my usual and customary return precautions. They verbalized understanding of this. - Vital Signs Vital signs: Temp Pulse Resp BP Pulse Ox 98.1 F 74 18 150/74 H 96 11/25/19 18:34 11/25/19 18:34 11/25/19 18:34 11/25/19 18:34 11/25/19 18:34 Discharge - Discharge Clinical Impression: Left femoral vein DVT Qualifiers: Chronicity: acute Qualified Code(s): I82.412 - Acute embolism and thrombosis of left femoral vein Condition: Good Disposition: HOME, SELF-CARE Instructions: DVT Outpatient Treatment ([facility]) Prescriptions: Apixaban [Eliquis 5 mg Tablet] 15 mg PO BID 21 Days #63 tablet Referrals: SUSHANT GIBBS DO [Primary Care Provider] - Follow up as needed SATURNINO DREW MD [ACTIVE STAFF] - Follow up as needed
[2019-11-25] MEDS ORDERED: ENOXAPARIN SODIUM INJ 80 MG/0.8 ML DISP.SYRIN SUBCUT ONE (17:40)
--- NOTE | 2019-11-25 18:20 | RADIOLOGY REPORT (SQ) ---
EXAM DESCRIPTION: VENOUS UNILATERAL LOWER IMAGES COMPLETED DATE/TIME: 11/25/2019 5:55 pm REASON FOR STUDY: Left leg swelling recent admission cancer COMPARISON: None. TECHNIQUE: Dynamic and static silva scale and color images acquired of the left leg venous system. Se lected spectral images acquired with additional compression and augmentation maneuvers. The contralat eral common femoral vein and saphenofemoral junction were also imaged. Images stored on PACS. LIMITATIONS: None. FINDINGS: There is extensive occlusive thrombus from the posterior tibial veins, through the poplite al, femoral, and common femoral veins. CONTRALATERAL COMMON FEMORAL VEIN AND SAPHENOFEMORAL JUNCTION: Normal phasicity, compression and augmentation. No visualized echogenic material on silva scale. No de fects on color images. IMPRESSION: Extensive acute DVT in the right lower extremity. TECHNICAL DOCUMENTATION: JOB ID: [id number] 2010 [employer]- All Rights Reserved Reading location - IP/workstation name: [email or web address]
[2019-11-25 18:34] VITALS: BP 150/74
== END 2019-11-25 18:35 | disposition home or self-care (01) ==
LOC: ER 15:36
DX: I82.412 Acute embolism and thrombosis of left femoral vein (principal); M79.89 Other specified soft tissue disorders; I10 Essential (primary) hypertension; Z90.710 Acquired absence of both cervix and uterus; Z88.0 Allergy status to penicillin
CPT/HCPCS: 99285; 96372; 93971; J1650

== ENCOUNTER → 2019-12-31 | Outpatient (CLI) | payer MEDICARE, OTHER ==
--- NOTE | 2019-12-31 13:47 | RADIOLOGY REPORT (SQ) ---
EXAM DESCRIPTION: CHEST PA/LATERAL IMAGES COMPLETED DATE/TIME: 12/31/2019 1:38 pm REASON FOR STUDY: SOB COMPARISON: None. EXAM PARAMETERS: NUMBER OF VIEWS: two views TECHNIQUE: Digital Frontal and Lateral radiographic views of the chest acquired. RADIATION DOSE: NA LIMITATIONS: none FINDINGS: LUNGS AND PLEURA: No opacities, masses or pneumothorax. No pleural effusion. MEDIASTINUM AND HILAR STRUCTURES: No masses or contour abnormalities. HEART AND VASCULAR STRUCTURES: Heart normal size. No evidence for failure. BONES: No acute findings. HARDWARE: Injection port on the right. OTHER: No other significant finding. IMPRESSION: NO SIGNIFICANT RADIOGRAPHIC FINDING IN THE CHEST. TECHNICAL DOCUMENTATION: JOB ID: [id number] 2010 [employer]- All Rights Reserved Reading location - IP/workstation name: [email or web address]
== END ==
LOC: OD 13:07
PROVIDERS: ATTEND Physician Assistant Medical
DX: R06.02 Shortness of breath (principal)
CPT/HCPCS: 71046

== ENCOUNTER 2020-02-28 11:01 | Emergency (ER) | payer MEDICARE, OTHER ==
[2020-02-28 11:16] VITALS: BP 179/88
[2020-02-28] MEDS ORDERED: NORMAL SALINE 1000 ML 1,000 ML IV ONE (12:02)
[2020-02-28] MEDS ORDERED: ONDANSETRON HCL INJ/PF 4 MG/2 ML SDV IV ONE (12:03)
--- NOTE | 2020-02-28 12:05 | ER Document Report ---
ED Medical Screen (RME) - General Chief Complaint: Abnormal Lab Results Stated Complaint: ABNORMAL LABS Time Seen by Provider: 02/28/20 11:59 Primary Care Provider: SATURNINO DREW MD [Primary Care Provider] - 03/02/20 PETER RUIZ PA-C [ALLIED HEALTH PROFESSIONAL] - Follow up as needed Mode of Arrival: Wheelchair Information source: Patient Notes: 64-year-old female presented to ED for metastatic cancer of the gallbladder. She is on chemotherapy she is a patient of Dr. Drew he requested the labs the fluids and the CTs to be completed. She will be seen by another provider. She states she is nauseated I have ordered Zofran. States she does have a pain patch on and she also has a Port-A-Cath is accessed. This can be used during the emergency room visit. States she also has a nausea patch behind her left ear. I have greeted and performed a rapid initial assessment of this patient. A comprehensive ED assessment and evaluation of the patient, analysis of test results and completion of medical decision making process will be conducted by an additional ED providers. TRAVEL OUTSIDE OF THE [place] IN LAST 30 DAYS: No - Related Data Allergies/Adverse Reactions: Penicillins Adverse Reaction (Intermediate, Verified 04/10/14 14:43) Hives levofloxacin [From Levaquin] Adverse Reaction (Verified 11/15/19 08:14) Past Medical History - Past Medical History Cardiac Medical History: Reports: Hx Hypertension Denies: Hx Congestive Heart Failure, Hx Coronary Artery Disease, Hx Heart Attack Pulmonary Medical History: Reports: Hx Pneumonia Denies: Hx Asthma, Hx Bronchitis, Hx COPD, Hx Tuberculosis Neurological Medical History: Reports: Hx Seizures - MED RELATED 30+ YRS AGO. Denies: Hx Cerebrovascular Accident, Hx Parkinson's Disease Renal/ Medical History: Denies: Hx End Stage Renal Disease, Hx Kidney Stones GI Medical History: Denies: Hx Cirrhosis, Hx Gastroesophageal Reflux Disease, Hx Ulcer Musculoskeltal Medical History: Reports Hx Arthritis, Denies Hx Multiple S clerosis Psychiatric Medical History: Reports: Hx Depression Denies: Hx Bipolar Disorder, Hx Schizophrenia Past Surgical History: Reports: Hx Hysterectomy - Immunizations Hx Diphtheria, Pertussis, Tetanus Vaccination: Yes Physical Exam - Vital signs Vitals: Temp Pulse Resp BP Pulse Ox 99.4 F 93 20 179/88 H 96 02/28/20 11:16 02/28/20 11:16 02/28/20 11:16 02/28/20 11:16 02/28/20 11:16 Course - Vital Signs Vital signs: Temp Pulse Resp BP Pulse Ox 99.4 F 93 20 179/88 H 96 02/28/20 11:16 02/28/20 11:16 02/28/20 11:16 02/28/20 11:16 02/28/20 11:16 - Laboratory Results Result Diagrams: 02/28/20 12:44 02/28/20 12:44 Laboratory Results Interpreted: 02/28/20 02/28/20 02/28/20 11:04 12:44 12:44 RBC 2.65 L Hgb 9.0 L Hct 26.3 L MCV 99 H MCH 34.1 H RDW 17.5 H Seg Neutrophils % 78.6 H Sodium 134.2 L Potassium 3.1 L BUN 21 H Est GFR (MDRD) Non-Af 52 L Calcium 8.0 L Total Bilirubin 6.8 H Direct Bilirubin 5.1 H AST 369 H ALT 124 H Alkaline Phosphatase 481 H Urine Blood SMALL H Urine Urobilinogen 4.0 H Ur Leukocyte Esterase TRACE H Doctor's Discharge - Discharge Clinical Impression: Biliary obstruction due to cancer, Hypokalemia, Hypocalcemia Condition: Stable Disposition: HOME, SELF-CARE Additional Instructions: Drink plenty of fluids over the weekend. Increase potassium in your diet as we discussed. Take your nausea medicine as needed. Follow-up with Dr. Drew Monday as scheduled. You were Covid tested, as that will be a requirement before you get ERCP done. RETURN TO THE EMERGENCY ROOM IF ANY NEW OR WORSENING SYMPTOMS. Referrals: SATURNINO DREW MD [Primary Care Provider] - 03/02/20 [place] PETER ELKINS PAAlmitaC [ALLIED HEALTH PROFESSIONAL] - Follow up as needed
[2020-02-28 13:17] LABS: ABSOLUTE BASOPHILS # (AUTO) 0.1 10^3/uL (0.0-0.2); ABSOLUTE MONOCYTES (AUTO) 0.2 10^3/uL (0.1-1.4); ABSOLUTE NEUT (AUTO) 4.8 10^3/uL (1.7-8.2); BASOPHILS % (AUTO) 1.6 % (0-2); EOSINOPHILS % (AUTO) 0.4 % (0-6); HEMATOCRIT 26.3 % (36.0-47.0); LYMPHOCYTES % (AUTO) 15.8 % (13-45); MEAN CORPUSCULAR HEMOGLOBIN 34.1 pg (27.0-33.4); MEAN CORPUSCULAR HGB CONC 34.4 g/dL (32.0-36.0); MEAN CORPUSCULAR VOLUME 99 fl (80-97); MONOCYTES % (AUTO) 3.6 % (3-13); PLATELET COUNT 343 10^3/uL (150-450); RED BLOOD COUNT 2.65 10^6/uL (3.72-5.28); RED CELL DISTRIBUTION WIDTH 17.5 % (11.5-14.0); SEGMENTED NEUTROPHILS % (AUTO) 78.6 % (42-78); TOTAL CELLS COUNTED % (AUTO) 100 %; WHITE BLOOD COUNT 6.1 10^3/uL (4.0-10.5)
[2020-02-28 13:30] LABS: APPEARANCE,URINE CLEAR; BILIRUBIN,URINE NEGATIVE (NEGATIVE); COLOR,URINE YELLOW; GLUCOSE, URINE NEGATIVE (NEGATIVE); KETONES,URINE NEGATIVE (NEGATIVE); LEUKOCYTE ESTERASE,URINE TRACE (NEGATIVE); NITRITE,URINE NEGATIVE (NEGATIVE); PROTEIN,URINE NEGATIVE (NEGATIVE)
[2020-02-28 13:39] LABS: ALBUMIN 3.5 g/dL (3.5-5.0); ALKALINE PHOSPHATASE 481 U/L (38-126); ANION GAP 10 (5-19); ASPARTATE AMINO TRANSFERASE 369 U/L (14-36); BILIRUBIN,DIRECT 5.1 mg/dL (0.0-0.4); BILIRUBIN,TOTAL 6.8 mg/dL (0.2-1.3); BLOOD UREA NITROGEN 21 mg/dL (7-20); CARBON DIOXIDE 24 mmol/L (22-30); CHLORIDE 100 mmol/L (98-107); GLUCOSE 106 mg/dL (75-110); POTASSIUM 3.1 mmol/L (3.6-5.0); TOTAL PROTEIN 6.7 g/dL (6.3-8.2)
[2020-02-28] MEDS ORDERED: POTASSI CL 20 MEQ/50 ML RIDER 20 MEQ/50 ML RTUPB IV ONE (14:07)
--- NOTE | 2020-02-28 15:27 | RADIOLOGY REPORT (SQ) ---
EXAM DESCRIPTION: CT CHEST WITH; CT ABD/PELVIS WITH IV ONLY IMAGES COMPLETED DATE/TIME: 02/28/2020 2:58 pm REASON FOR STUDY: Gallbladder cancer with mets evaded bili; Gallbladder with mets cancer CONTRAST TYPE AND DOSE: Contrast/concentration: Isovue 350.00 mmol/ml; Total Contrast Delivered: 74. 0 ml; Total Saline Delivered: 62.8 ml RENAL FUNCTION: Creatinine 1.06 milligrams/deciliter. COMPARISON: CT of the abdomen and pelvis without contrast from 11/16/2019 P TECHNIQUE: CT scan of the chest performed using helical scanning technique with dynamic intravenous contrast injection. Images reviewed with lung, soft tissue and bone windows. Reconstructed coronal a nd sagittal MPR images reviewed. All images stored on PACS. All CT scanners at this facility use dose modulation, iterative reconstruction, and/or weight based d osing when appropriate to reduce radiation dose to as low as reasonably achievable (ALARA). [facility]: Dose Right [facility]: CareDose [facility]: Dose Right [facility]: Teradose 4D [facility]: Smart [employer] RADIATION DOSE: CT Rad equipment meets quality standard of care and radiation dose reduction techniq ues were employed. CTDIvol: 7.8 - 12.0 mGy. DLP: 1341 mGy-cm. LIMITATIONS: None. FINDINGS: AXILLAE: No adenopathy. CHEST WALL: No masses. No subcutaneous air. LUNGS AND PLEURA: The trachea and main bronchi are patent. There is no bronchiectasis or bronchial w all thickening. There is a 3 mm calcified nodule in the right lower lobe (image 28 of series 4). Th ere is no acute consolidation, ground-glass opacification, pleural effusion or pneumothorax. THYROID: No mass or asymmetry. HILAR AND MEDIASTINAL STRUCTURES: Calcified subcarinal lymph node and nonenlarged noncalcified right upper peritracheal and right lower peritracheal lymph nodes that measure up to 7 mm in short axis osvaldo meter. AORTA AND GREAT VESSELS: No aneurysm or dissection of the thoracic aorta. PULMONARY ARTERIES: No filling defects within the main pulmonary artery. HEART: No cardiomegaly or pericardial effusion. HARDWARE AND LIFELINES: The tip of the right IJ single-lumen port terminates within the SVC. BONES: Disc osteophyte complexes at T6-T7 and T9-T10 that project into the ventral aspect of the spin al canal. There is no fracture or osseous lesion. OTHER: No other findings. IMPRESSION: No acute cardiopulmonary process and no evidence of thoracic metastases. COMPARISON: None. RADIATION DOSE: CT Rad equipment meets quality standard of care and radiation dose reduction techniq ues were employed. CTDIvol: 7.8 - 12.0 mGy. DLP: 1341 mGy-cm. TECHNIQUE: CT scan of the abdomen and pelvis performed with intravenous and oral contrast using dea kwabena scanning technique with dynamic intravenous contrast injection. Images reviewed with lung, soft tissue and bone windows. Reconstructed coronal and sagittal MPR images reviewed. Delayed images for evaluation of the urinary system also acquired and evaluated. All images stored on PACS. All CT scanners at this facility use dose modulation, iterative reconstruction, and/or weight based d osing when appropriate to reduce radiation dose to as low as reasonably achievable (ALARA). [facility]: Dose Right [facility]: [employer] [facility]: Dose Right [facility]: Teradose 4D [facility]: T[employer] FINDINGS: LIVER: The morphology of the liver is noncirrhotic. The intrahepatic bile ducts are dilat ed. There is no hepatic mass. SPLEEN: No splenomegaly or splenic mass. 22 x 19 mm accessory splenule inferior to the spleen. PANCREAS: No acute gross abnormality of the pancreas. GALLBLADDER: The gallbladder surgically absent. There is a common bile duct stent in place; the dist al end of the stent projects within the lumen of the duodenum. ADRENAL GLANDS: Stable 12 x 11 mm low right adrenal nodule (image 52 of series 3) RIGHT KIDNEY AND URETER: No solid mass, hydronephrosis, nephrolithiasis, hydroureter or ureterolithia sis. LEFT KIDNEY AND URETER: No solid mass, hydronephrosis, nephrolithiasis, hydroureter or ureterolithias is. AORTA AND VESSELS: No aneurysm of the abdominal aorta. RETROPERITONEUM: No retroperitoneal adenopathy, hemorrhage or mass. LARGE AND SMALL BOWEL: There are several enlarged lymph nodes near the reno hepatis that measure up to 12 mm in short axis diameter. There is colonic diverticulosis without diverticulitis. There is n o bowel obstruction, bowel wall thickening or pericolonic/perienteric inflammation. APPENDIX: Unable to identify the appendix. ABDOMINAL WALL: No mass or hernia. PERITONEAL CAVITY: The free fluid in the right perihepatic space has resolved. PELVIS: The uterus is surgically absent. There is no abnormality of the urinary bladder. BONES: No fracture or osseous lesion OTHER: No other finding. IMPRESSION: The gallbladder is surgically absent. There is a stent within the common bile duct; the stent appears in proper position the intrahepatic bile ducts are dilated and there is a cluster of e nlarged lymph nodes in the reno hepatis that measure up to 12 mm in short axis diameter. TECHNICAL DOCUMENTATION: JOB ID: [id number] Quality ID # [id number]: Final reports with documentation of one or more dose reduction techniques (e.g., Au tomated exposure control, adjustment of the mA and/or kV according to patient size, use of iterative reconstruction technique) 2010 [employer]- All Rights Reserved Reading location - IP/workstation name: [email or web address]
--- NOTE | 2020-02-28 17:08 | ER Document Report ---
Entered by ALLEN BELL SCRIBE 02/28/20 1506 Acting as scribe for:GUILLERMO CHAVIS MD ED General - General Chief Complaint: abdonormal labs Stated Complaint: ABNORMAL LABS Time Seen by Provider: 02/28/20 11:59 Primary Care Provider: SATURNINO PRIEST MD [Primary Care Provider] - 03/02/20 PETER RUIZ PA-C [ALLIED HEALTH PROFESSIONAL] - Follow up as needed Mode of Arrival: Wheelchair Information source: Patient, Relative, Dr. 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 Patient had a bilirubin of 9.0 and a potassium of 2.8 prior to arrival. Patient is in her fifth cycle of chemotherapy currently. Patient had her common bile duct in [place] earlier this year. TRAVEL OUTSIDE OF THE [place] IN LAST 30 DAYS: No - Related Data Allergies/Adverse Reactions: Penicillins Adverse Reaction (Intermediate, Verified 04/10/14 14:43) Hives levofloxacin [From Levaquin] Adverse Reaction (Verified 11/15/19 08:14) Home Medications: eloquis. potassium. calcium lisinopril. metopolol. synthroid. zoloft. stool softner Past Medical History - General Information source: Patient, Relative, Dr. Li, [facility] Records - Social History Smoking Status: Former Smoker - quit > 40 years Cigarette use (# per day): No Chew tobacco use (# tins/day): No Smoking Education Provided: No Frequency of alcohol use: None Drug Abuse: None Lives with: Family Family History: Reviewed & Not Pertinent Patient has homicidal ideation: No - Past Medical History Cardiac Medical History: Reports: Hx Hypertension Pulmonary Medical History: Reports: Hx Pneumonia Neurological Medical History: Reports: Hx Seizures - MED RELATED 30+ YRS AGO Malignancy Medical History: Reports: Other - Cholangiocarcinoma Musculoskeletal Medical History: Reports Hx Arthritis Psychiatric Medical History: Reports: Hx Depression Past Surgical History: Reports: Hx Hysterectomy - Immunizations Hx Diphtheria, Pertussis, Tetanus Vaccination: Yes Review of Systems - Review of Systems Constitutional: See HPI, Other - abnormal labs EENT: No symptoms reported Cardiovascular: No symptoms reported Respiratory: No symptoms reported Gastrointestinal: No symptoms reported Genitourinary: No symptoms reported Female Genitourinary: No symptoms reported Musculoskeletal: No symptoms reported Skin: No symptoms reported Hematologic/Lymphatic: No symptoms reported Neurological/Psychological: No symptoms reported -: Yes All other systems reviewed and negative Physical Exam - Vital signs Vitals: Temp Pulse Resp BP Pulse Ox 99.4 F 93 20 179/88 H 96 02/28/20 11:16 12 11:16 12 11:16 12 11:16 02/28/20 11:16 - Notes Notes: Physical Exam: General: Alert, appears at baseline. HEENT: Normocephalic. Atraumatic. PERRL. Extraocular movements intact. Oropharynx clear. Scleral icterus. Neck: Supple. Non-tender. Respiratory: No respiratory distress. Clear and equal breath sounds bilaterally. Cardiovascular: Regular rate and rhythm. Abdominal: Minimal diffuse tenderness with palpation which the patient reports comes and goes and has since been diagnosed with cancer. no distension. Normal Bowel Sounds. Back: No gross abnormalities. Extremities: Moves all four extremities. Upper extremities: Normal inspection. Normal ROM. Lower extremities: Normal inspection. No edema. Normal ROM. Neurological: Normal cognition. AAOx4. Normal speech. Psychological: Normal affect. Normal Mood. Skin: Warm. Dry. Jaundiced. Course - Re-evaluation Re-evalutation: 02/28/20 19:04 Dr. Priest had requested the patient be admitted by the hospitalist service and he was going to get Dr. Avalos to see the patient. After the hospitalist spoke with the patient, the patient decided that she would go home and follow-up. Initial attempts at finding a place to transfer the patient to were unsuccessful as I found that [facility], [facility], [facility], [facility], and [facility] were all full and not accepting patients other than STEMI's and strokes or trauma. - Vital Signs Vital signs: Temp Pulse Resp BP Pulse Ox 99.4 F 93 20 179/88 H 96 02/28/20 11:16 02/28/20 11:16 12 11:16 02/28/20 11:16 02/28/20 11:16 - Laboratory Results Result Diagrams: 02/28/20 12:44 02/28/20 12:44 Laboratory Results Interpreted: 02/28/20 02/28/20 02/28/20 11:04 12:44 12:44 RBC 2.65 L Hgb 9.0 L Hct 26.3 L MCV 99 H MCH 34.1 H RDW 17.5 H Seg Neutrophils % 78.6 H Sodium 134.2 L Potassium 3.1 L BUN 21 H Est GFR (MDRD) Non-Af 52 L Calcium 8.0 L Total Bilirubin 6.8 H Direct Bilirubin 5.1 H AST 369 H ALT 124 H Alkaline Phosphatase 481 H Urine Blood SMALL H Urine Urobilinogen 4.0 H Ur Leukocyte Esterase TRACE H Critical Laboratory Results Reviewed: Yes - Hypokalemia. Elevated LFTs and bilirubin. Attending or Supervising Physician who Reviewed Labs: GUILLERMO CHAVIS - Radiology Results Critical Radiology Results Reviewed: Yes - CT scan of the chest did not show any acute process or evidence of thoracic metastases. CT scan of the abdomen shows a stent in the common bile duct in proper position the intrahepatic bile ducts are dilated and there is a cluster of enlarged lymph nodes in the reno hepatis that measure up to 12mm Attending or Supervising Physician who Reviewed Radiology: GUILLERMO CHAVIS Discharge - Discharge Clinical Impression: Biliary obstruction due to cancer, Hypokalemia, Hypocalcemia Condition: Stable Disposition: HOME, SELF-CARE Additional Instructions: Drink plenty of fluids over the weekend. Increase potassium in your diet as we discussed. Take your nausea medicine as needed. Follow-up with Dr. Priest Monday as scheduled. You were Covid tested, as that will be a requirement before you get ERCP done. RETURN TO THE EMERGENCY ROOM IF ANY NEW OR WORSENING SYMPTOMS. Referrals: PETER RUIZ PA-C [ALLIED HEALTH PROFESSIONAL] - Follow up as needed SATURNINO PRIEST MD [Primary Care Provider] - 03/02/20 I personally performed the services described in the documentation, reviewed and edited the documentation which was dictated to the scribe in my presence, and it accurately records my words and actions.
== END 2020-02-28 19:30 | disposition home or self-care (01) ==
LOC: ER 11:01
DX: E87.6 Hypokalemia (principal); E83.51 Hypocalcemia; K83.1 Obstruction of bile duct; C22.1 Intrahepatic bile duct carcinoma; I10 Essential (primary) hypertension; Z20.828 Contact with and (suspected) exposure to other viral communicable diseases; Z88.0 Allergy status to penicillin; Z88.3 Allergy status to other anti-infective agents; Z79.899 Other long term (current) drug therapy; Z90.710 Acquired absence of both cervix and uterus
CPT/HCPCS: 36591; 99285; 96361; 96374; 36415; 83690; 85025; 80053; 81001; 71260; 74177; U0003; J2405; J3480; J7030; J1642; C9803; 87635

== ENCOUNTER → 2020-03-21 | Outpatient (CLI) | payer MEDICARE, OTHER ==
--- NOTE | 2020-03-21 11:13 | RADIOLOGY REPORT (SQ) ---
EXAM DESCRIPTION: MRI HEAD COMBO IMAGES COMPLETED DATE/TIME: 03/21/2020 9:51 am REASON FOR STUDY: C23 GALLBLADDER CA C23 MALIGNANT NEOPLASM OF GALLBLADDER COMPARISON: None. TECHNIQUE: Multiplanar imaging includes noncontrasted T1, T2, FLAIR, Diffusion with ADC map and post gadolinium contrast T1 sequences. Images stored on PACS. CONTRAST TYPE AND DOSE: 10 mL Prohance. RENAL FUNCTION: Not indicated. ACR Type II contrast agent associated with few, if any, unconfounded cases of NSF LIMITATIONS: Motion. FINDINGS: ANATOMY: No anomalies. Normal vascular flow voids. Pituitary fossa normal. CSF SPACES: Atrophy-induced prominence of CSF spaces and ventricles. CEREBRUM: Prominence of the right frontal dura compared to the left. This is probably a normal varia nt. High-signal intensity lesions scattered throughout the white matter on FLAIR imaging with distri bution suggesting chronic micro-vascular ischemic change. No evidence of hemorrhage, mass, extraaxial fluid collection or acute ischemic change. No enhancing lesions. POSTERIOR FOSSA: No signal alteration. No hemorrhage. No edema, masses, or mass effect. Internal josefa tory canals, cerebello-pontine angles, mastoids normal. No enhancing lesions. ORBITS: No masses. Globes normal. PARANASAL SINUSES: Mucosal thickening in the maxillary and left sphenoid sinuses. DIFFUSION: Normal. No evidence of recent infarct. OTHER: No other significant finding. IMPRESSION: Prominence of the right frontal dura but no definitive evidence metastatic disease. EVIDENCE OF ACUTE STROKE: NO. TECHNICAL DOCUMENTATION: JOB ID: [id number] 2010 [employer]- All Rights Reserved Reading location - IP/workstation name: [email or web address]
== END ==
LOC: RAD 08:52
PROVIDERS: ATTEND Physician Assistant Medical
DX: C23 Malignant neoplasm of gallbladder (principal)
CPT/HCPCS: 70553; A9576

== ENCOUNTER 2020-03-24 13:43 | Emergency (ER) | payer MEDICARE, OTHER ==
--- NOTE | 2020-03-24 15:39 | ER Document Report ---
ED Medical Screen (RME) - General Chief Complaint: Head Injury Stated Complaint: FALL/HEAD INJURY Time Seen by Provider: 03/24/20 15:28 Primary Care Provider: PETER RUIZ PA-C [Primary Care Provider] - Follow up as needed Mode of Arrival: Ambulatory Information source: Patient, Relative - TRAVEL OUTSIDE OF THE [place] IN LAST 30 DAYS: No - HPI Patient complains to provider of: fall, head injury Onset: This afternoon Notes: 03/24/20 15:38 Patient here with her at the bedside with complaints of fall and head injury. 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 Patient states she was getting dressed when she started to feel dizzy, got tangled in her close and then fell and hit the right side of her head on a dresser. No loss of consciousness. She denies any severe headache or neck pain. She denies any chest pain or shortness of breath. No nausea, vomiting, diarrhea. No unilateral numbness, tingling, weakness. Exam: Nontoxic, no distress. Small superficial laceration to the right parietal scalp with no active bleeding. Cranial nerves II through XII are grossly intact. Nonfocal neurological exam. An initial examination was made on the patient as part of the triage process, and it was determined a more comprehensive evaluation was necessary. Initial orders were placed and patient was transferred to another provider in the ED who assumed care and finished evaluation and plan. - Related Data Allergies/Adverse Reactions: Penicillins Adverse Reaction (Intermediate, Verified 04/10/14 14:43) Hives levofloxacin [From Levaquin] Adverse Reaction (Verified 11/15/19 08:14) Home Medications: potassium, calcium, lisinopril, metoporol, synthroid, zoloft. stool softner/ fentanyl patches/dramamine patches Past Medical History - Social History Chew tobacco use (# tins/day): No Frequency of alcohol use: None Drug Abuse: None - Past Medical History Cardiac Medical History: Reports: Hx Hypertension Denies: Hx Congestive Heart Failure, Hx Coronary Artery Disease, Hx Heart Attack Pulmonary Medical History: Reports: Hx Pneumonia Denies: Hx Asthma, Hx Bronchitis, Hx COPD, Hx Tuberculosis Neurological Medical History: Reports: Hx Seizures - MED RELATED 30+ YRS AGO. Denies: Hx Cerebrovascular Accident, Hx Parkinson's Disease Renal/ Medical History: Denies: Hx End Stage Renal Disease, Hx Kidney Stones GI Medical History: Denies: Hx Cirrhosis, Hx Gastroesophageal Reflux Disease, Hx Ulcer Musculoskeltal Medical History: Reports Hx Arthritis, Denies Hx Multiple Sclerosis Psychiatric Medical History: Reports: Hx Depression Denies: Hx Bipolar Disorder, Hx Schizophrenia Past Surgical History: Reports: Hx Hysterectomy - Immunizations Hx Diphtheria, Pertussis, Tetanus Vaccination: Yes Physical Exam - Vital signs Vitals: Temp Pulse Resp BP Pulse Ox 97.7 F 98 18 115/77 100 03/24/20 14:19 03/24/20 14:19 03/24/20 14:19 03/24/20 14:19 03/24/20 14:19 Course - Vital Signs Vital signs: Temp Pulse Resp BP Pulse Ox 97.7 F 98 18 115/77 100 03/24/20 14:19 03/24/20 14:19 03/24/20 14:19 03/24/20 14:19 03/24/20 14:19 Doctor's Discharge - Discharge Referrals: PETER RUIZ PAAlmitaC [Primary Care Provider] - Follow up as needed
--- NOTE | 2020-03-24 16:06 | RADIOLOGY REPORT (SQ) ---
EXAM DESCRIPTION: CT HEAD WITHOUT IMAGES COMPLETED DATE/TIME: 03/24/2020 3:55 pm REASON FOR STUDY: fall, head injury COMPARISON: MR dated 03/21/2020. TECHNIQUE: Axial images acquired through the brain without intravenous contrast. Images reviewed wi th bone, brain and subdural windows. Additional sagittal and coronal reconstructions were generated. Images stored on PACS. All CT scanners at this facility use dose modulation, iterative reconstruction, and/or weight based d osing when appropriate to reduce radiation dose to as low as reasonably achievable (ALARA). [facility]: Dose Right [facility]: CareDose [facility]: Dose Right [facility]: Teradose 4D [facility]: Smart [employer] RADIATION DOSE: mGy. LIMITATIONS: None. FINDINGS: VENTRICLES: Prominent. CEREBRUM: No masses. No hemorrhage. No midline shift. Areas of low density in the white matter mos t likely due to chronic micro-vascular ischemic change. No evidence for acute infarction. CEREBELLUM: No masses. No hemorrhage. No alteration of density. No evidence for acute infarction. EXTRAAXIAL SPACES: Age-related involutional change. No fluid collections. No masses. ORBITS AND GLOBE: No intra- or extraconal masses. Normal contour of globe without masses. CALVARIUM: No fracture. PARANASAL SINUSES: Mucous membrane thickening in the maxillary and ethmoid sinuses. SOFT TISSUES: No mass or hematoma. OTHER: No other significant finding. IMPRESSION: CHRONIC CHANGES OF ATROPHY AND MICROVASCULAR ISCHEMIA. CHRONIC SINUS DISEASE. NO ACUTE PROCESS. EVIDENCE OF ACUTE STROKE: NO. TECHNICAL DOCUMENTATION: JOB ID: [id number] Quality ID # [id number]: Final reports with documentation of one or more dose reduction techniques (e.g., Au tomated exposure control, adjustment of the mA and/or kV according to patient size, use of iterative reconstruction technique) 2010 [employer]- All Rights Reserved Reading location - IP/workstation name: [email or web address]
--- NOTE | 2020-03-24 16:08 | RADIOLOGY REPORT (SQ) ---
EXAM DESCRIPTION: CT CERVICAL SPINE WITHOUT IMAGES COMPLETED DATE/TIME: 03/24/2020 3:55 pm REASON FOR STUDY: fall, head injury COMPARISON: None. TECHNIQUE: Axial images acquired through the cervical spine without intravenous contrast. Images re viewed with lung, soft tissue and bone windows. Reconstructed coronal and sagittal MPR images review ed. Images stored on PACS. All CT scanners at this facility use dose modulation, iterative reconstruction, and/or weight based d osing when appropriate to reduce radiation dose to as low as reasonably achievable (ALARA). [facility]: Dose Right [facility]: CareDose [facility]: Dose Right [facility]: Teradose 4D [facility]: Smart [employer] RADIATION DOSE: CT Rad equipment meets quality standard of care and radiation dose reduction techniq ues were employed. CTDIvol: 16.7 - 53.2 mGy. DLP: 1307 mGy-cm. mGy. LIMITATIONS: None. FINDINGS: ALIGNMENT: Anatomic. MINERALIZATION: Normal. VERTEBRAL BODIES: No fractures or dislocation. DISCS: Multilevel disc space narrowing with osteophytes. FACETS, LATERAL MASSES, POSTERIOR ELEMENTS: Facet arthropathy. No fractures. No dislocation. No ac [place] findings. HARDWARE: None in the spine. VISUALIZED RIBS: No fractures. LUNG APICES AND SOFT TISSUES: No significant or acute findings. OTHER: No other significant finding. IMPRESSION: CHRONIC DEGENERATIVE CHANGES. NO ACUTE FINDINGS. TECHNICAL DOCUMENTATION: JOB ID: [id number] Quality ID # [id number]: Final reports with documentation of one or more dose reduction techniques (e.g., Au tomated exposure control, adjustment of the mA and/or kV according to patient size, use of iterative reconstruction technique) 2010 [employer]- All Rights Reserved Reading location - IP/workstation name: [email or web address]
[2020-03-24 17:12] LABS: ABSOLUTE EOSINOPHILS # (AUTO) 0.1 10^3/uL (0.0-0.6); ABSOLUTE LYMPHOCYTES (AUTO) 1.8 10^3/uL (0.5-4.7); ABSOLUTE NEUT (AUTO) 5.2 10^3/uL (1.7-8.2); BASOPHILS % (AUTO) 0.2 % (0-2); EOSINOPHILS % (AUTO) 1.3 % (0-6); HEMATOCRIT 28.9 % (36.0-47.0); HEMOGLOBIN 10.1 g/dL (12.0-15.5); LYMPHOCYTES % (AUTO) 22.1 % (13-45); MEAN CORPUSCULAR HEMOGLOBIN 33.4 pg (27.0-33.4); MEAN CORPUSCULAR HGB CONC 34.8 g/dL (32.0-36.0); MEAN CORPUSCULAR VOLUME 96 fl (80-97); MONOCYTES % (AUTO) 12.6 % (3-13); PLATELET COUNT 327 10^3/uL (150-450); RED BLOOD COUNT 3.01 10^6/uL (3.72-5.28); RED CELL DISTRIBUTION WIDTH 19.3 % (11.5-14.0); SEGMENTED NEUTROPHILS % (AUTO) 63.8 % (42-78); TOTAL CELLS COUNTED % (AUTO) 100 %; WHITE BLOOD COUNT 8.1 10^3/uL (4.0-10.5)
[2020-03-24 17:21] LABS: APPEARANCE,URINE SLIGHTLY-CLOUDY; BILIRUBIN,URINE NEGATIVE (NEGATIVE); COLOR,URINE YELLOW; GLUCOSE, URINE NEGATIVE (NEGATIVE); KETONES,URINE NEGATIVE (NEGATIVE); LEUKOCYTE ESTERASE,URINE MODERATE (NEGATIVE); NITRITE,URINE NEGATIVE (NEGATIVE); PROTEIN,URINE 30 mg/dL (NEGATIVE); URINE SPECIFIC GRAVITY 1.014; UROBILINOGEN,URINE NEGATIVE mg/dL (<2.0)
[2020-03-24 17:35] LABS: ALBUMIN 3.5 g/dL (3.5-5.0); ALKALINE PHOSPHATASE 133 U/L (38-126); ANION GAP 9 (5-19); ASPARTATE AMINO TRANSFERASE 48 U/L (14-36); BILIRUBIN,DIRECT 0.6 mg/dL (0.0-0.4); BILIRUBIN,TOTAL 1.2 mg/dL (0.2-1.3); BLOOD UREA NITROGEN 18 mg/dL (7-20); CALCIUM 8.5 mg/dL (8.4-10.2); CARBON DIOXIDE 28 mmol/L (22-30); CHLORIDE 100 mmol/L (98-107); GLUCOSE 110 mg/dL (75-110); POTASSIUM 3.8 mmol/L (3.6-5.0); TOTAL PROTEIN 7.1 g/dL (6.3-8.2)
--- NOTE | 2020-03-24 20:41 | ER Document Report ---
ED Headache - General Chief Complaint: Head Injury Stated Complaint: FALL/HEAD INJURY Time Seen by Provider: 03/24/20 15:28 Primary Care Provider: PETER RUIZ PA-C [Primary Care Provider] - Follow up as needed Mode of Arrival: Ambulatory Notes: ED Medical Screen ([facility]) - General Chief Complaint: Head Injury Stated Complaint: FALL/HEAD INJURY Time Seen by Provider: 03/24/20 15:28 Primary Care Provider: PETER RUIZ PA-C [Primary Care Provider] - Follow up as needed Mode of Arrival: Ambulatory Information source: Patient, Relative - TRAVEL OUTSIDE OF THE [place] IN LAST 30 DAYS: No - HPI Patient complains to provider of: fall, head injury Onset: This afternoon Notes: 03/24/20 15:38 Patient here with her at the bedside with complaints of fall and head injury. 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 Patient states she was getting dressed when she started to feel dizzy, got tangled in her close and then fell and hit the right side of her head on a dresser. No loss of consciousness. She denies any severe headache or neck pain. She denies any chest pain or shortness of breath. No nausea, vomiting, diarrhea. No unilateral numbness, tingling, weakness. Exam: Nontoxic, no distress. Small superficial laceration to the right parietal scalp with no active bleeding. Cranial nerves II through XII are grossly intact. Nonfocal neurological exam. MY NOTES 64-year-old female arrives by POV with her . Patient reports he found his on the floor next to the bed. She was attempting to sit after eating lunch and felt dizzy. Her CT of head and neck are negative today. Her labs are significant for low magnesium 0.8. She was offered IV magnesium but patient prefers to go home. We did advise getting orthostatics to see what her blood pressure is. She has a history of biliary cancer and is followed by Dr. Priest. She takes Platinol and Paraplatin and Gemzar as well as Emend. She reports she does have oral magnesium at home already and would prefer not to get any IV magnesium was takes 2 hours. TRAVEL OUTSIDE OF THE [place] IN LAST 30 DAYS: No - Related Data Allergies/Adverse Reactions: Penicillins Adverse Reaction (Intermediate, Verified 04/10/14 14:43) Hives [facility] [[facility]] Adverse Reaction (Verified 11/15/19 08:14) Home Medications: potassium, calcium, lisinopril, metoporol, synthroid, zoloft. stool softner/ fentanyl patches/dramamine patches Past Medical History - General Information source: Patient, Relative - - Social History Smoking Status: Former Smoker Cigarette use (# per day): No Chew tobacco use (# tins/day): No Smoking Education Provided: No Frequency of alcohol use: None Drug Abuse: None Lives with: Family Family History: Reviewed & Not Pertinent Patient has suicidal ideation: No Patient has homicidal ideation: No - Past Medical History Cardiac Medical History: Reports: Hx Hypertension Denies: Hx Congestive Heart Failure, Hx Coronary Artery Disease, Hx Heart Attack Pulmonary Medical History: Reports: Hx Pneumonia Denies: Hx Asthma, Hx Bronchitis, Hx COPD, Hx Tuberculosis Neurological Medical History: Reports: Hx Seizures - MED RELATED 30+ YRS AGO. Denies: Hx Cerebrovascular Accident, Hx Parkinson's Disease Renal/ Medical History: Denies: Hx End Stage Renal Disease, Hx Kidney Stones GI Medical History: Denies: Hx Cirrhosis, Hx Gastroesophageal Reflux Disease, Hx Ulcer Musculoskeletal Medical History: Reports Hx Arthritis, Denies Hx Multiple Sclerosis Psychiatric Medical History: Reports: Hx Depression Denies: Hx Bipolar Disorder, Hx Schizophrenia Past Surgical History: Reports: Hx Hysterectomy - Immunizations Hx Diphtheria, Pertussis, Tetanus Vaccination: Yes Review of Systems - Review of Systems Constitutional: No symptoms reported EENT: No symptoms reported Cardiovascular: No symptoms reported Respiratory: No symptoms reported Gastrointestinal: No symptoms reported Genitourinary: No symptoms reported Female Genitourinary: No symptoms reported Musculoskeletal: No symptoms reported Skin: No symptoms reported Hematologic/Lymphatic: No symptoms reported Neurological/Psychological: See HPI, Weakness -: Yes All other systems reviewed and negative Physical Exam - Vital signs Vitals: Temp Pulse Resp BP Pulse Ox 97.7 F 98 18 115/77 100 03/24/20 14:19 03/24/20 14:19 03/24/20 14:19 03/24/20 14:19 03/24/20 14:19 Interpretation: Normal - General General appearance: Appears well, Alert - HEENT Head: Normocephalic, Other - Scalp lac as per initial exam at triage nonbleeding Eyes: Normal Pupils: PERRL - Respiratory Respiratory status: No respiratory distress Chest status: Nontender Breath sounds: Normal Chest palpation: Normal - Cardiovascular Rhythm: Regular Heart sounds: Normal auscultation Murmur: No - Abdominal Inspection: Normal Distension: No distension Bowel sounds: Normal Tenderness: Nontender Organomegaly: No organomegaly - Rectal Hemorrhoids: Other - Deferred - Genitourinary Bimanuel exam: Other - Deferred - Back Back: Normal, Nontender - Extremities General upper extremity: Normal inspection, Nontender, Normal color, Normal ROM, Normal temperature General lower extremity: Normal inspection, Nontender, Normal color, Normal ROM, Normal temperature, Normal weight bearing. No: Manav's sign - Neurological Neuro grossly intact: Yes Cognition: Normal Orientation: AAOx4 [place] Coma Scale Eye Opening: Spontaneous [place] Coma Scale Verbal: Oriented Lilian Coma Scale Motor: Obeys Commands [place] Coma Scale Total: 15 Speech: Normal Motor strength normal: LUE, RUE, LLE, RLE Sensory: Normal - Psychological Associated symptoms: Normal affect, Normal mood - Skin Skin Temperature: Warm Skin Moisture: Dry Skin Color: Normal Course - Vital Signs Vital signs: Temp Pulse Resp BP Pulse Ox 97.7 F 98 18 115/77 100 03/24/20 14:19 03/24/20 14:19 03/24/20 14:19 03/24/20 14:19 03/24/20 14:19 - Laboratory Results Result Diagrams: 03/24/20 16:58 03/24/20 16:58 Laboratory Results Interpreted: 03/24/20 03/24/20 03/24/20 16:58 16:58 16:58 RBC 3.01 L Hgb 10.1 L Hct 28.9 L RDW 19.3 H Sodium 136.5 L Creatinine 1.45 H Est GFR ( Amer) 44 L Est GFR (MDRD) Non-Af 36 L Magnesium 0.8 L* Direct Bilirubin 0.6 H AST 48 H Alkaline Phosphatase 133 H Urine Protein 30 H Ur Leukocyte Esterase MODERATE H Critical Laboratory Results Reviewed: Yes Attending or Supervising Physician who Reviewed Labs: TANVI COOK JR - Radiology Results Radiology Results Interpreted: 03/24/20 20:42 tiana disla cts Critical Radiology Results Reviewed: Yes Attending or Supervising Physician who Reviewed Radiology: TANVI COOK JR Critical Care Note - Critical Care Note Comments: I advised pt and of lab and CT findings Discharge - Discharge Clinical Impression: Hypomagnesemia Fall Qualifiers: Encounter type: initial encounter Qualified Code(s): W19.XXXA - Unspecified fall, initial encounter Condition: Stable Disposition: HOME, SELF-CARE Additional Instructions: Follow-up with Dr. Priest/call his office tomorrow. Return to ER for true emergencies take medicines as directed including magnesium twice a day Prescriptions: Magnesium Chloride [Slow-Mag] 64 mg PO BID #1 bottle Referrals: PETER RUIZ PA-C [Primary Care Provider] - Follow up as needed
[2020-03-24] MEDS: MAGNESIUM SULFATE/D5W 1 GM/100 ML RTUPB IV SCH (20:52)
[2020-03-24 21:00] VITALS: BP 162/75
--- NOTE | 2020-03-25 00:43 | EKG REPORT ---
SEVERITY:- BORDERLINE ECG - SINUS RHYTHM LEFT AXIS DEVIATION BORDERLINE PROLONGED QT INTERVAL : Confirmed by: Linus Juarez 25-Mar-2020 00:42:00
== END 2020-03-24 21:00 | disposition home or self-care (01) ==
LOC: ER 13:43
DX: S01.01XA Laceration without foreign body of scalp, initial encounter (principal); E83.42 Hypomagnesemia; W19.XXXA Unspecified fall, initial encounter; Y92.009 Unspecified place in unspecified non-institutional (private) residence as the place of occurrence of the external cause; I10 Essential (primary) hypertension; Z90.710 Acquired absence of both cervix and uterus; Z86.718 Personal history of other venous thrombosis and embolism; Z79.01 Long term (current) use of anticoagulants
CPT/HCPCS: 36415; 70450; 72125; 80053; 81001; 83735; 85025; 93005; 93010; 99285